=== PATIENT | male | born 1950 | race Two or more races ===

== ENCOUNTER 2022-03-08 00:35 | Emergency (ER) | payer OTHER ==
[~2022-03-08] VITALS: Ht 170.2 cm; Wt 68.0 kg
[2022-03-08 01:58] LABS: Basophils # (auto) 0 10 ^3/uL (0-0.2); Basophils % (auto) 0.3 % (0.0-2.0); Eosinophils # (auto) 0.1 10 ^3/uL (0-0.8); Eosinophils % (auto) 0.7 % (0.0-7.0); Hematocrit 39.1 % (41.0-53.0); Hemoglobin 12.8 g/dL (13.5-17.5); Lymphocytes # (auto) 2.1 10 ^3/uL (0.4-5.4); Lymphocytes % (auto) 18.9 % (10.0-50.0); Mean Corpuscular Hgb Conc. 32.9 g/dL (32.0-36.0); Mean Corpuscular Volume 94.4 fL (80.0-100.0); Monocytes # (auto) 0.8 10 ^3/uL (0-1.3); Monocytes % (auto) 7.5 % (0.0-12.0); Neutrophils # (auto) 8.1 10 ^3/uL (1.6-8.6); Neutrophils % (auto) 72.6 % (37.0-80.0); Red Blood Cells 4.14 10^6/uL (4.5-5.90); Red Cell Distribution Width 14.3 % (11.8-14.3); White Blood Cell 11.1 10^3/uL (4.4-10.8)
[2022-03-08 02:20] LABS: Albumin 3.6 g/dL (3.4-5.0); Calcium 8.7 mg/dL (8.5-10.1); Magnesium 2.3 mg/dL (1.6-2.6); Potassium 4.8 mmol/L (3.5-5.1)
[2022-03-08 02:22] LABS: BUN/Creatinine Ratio 18.3
[2022-03-08 02:24] LABS: Bilirubin, Total 0.3 mg/dL (0.2-1.0); Total Protein 6.9 g/dL (6.4-8.2)
[2022-03-08] MEDS ORDERED: LIDOCAINE VISCOUS 2% 15ML UD PO ONE (02:30)
[2022-03-08] MEDS ORDERED: ONDANSETRON ODT 4 MG TAB PO ONE (02:30)
[2022-03-08] MEDS ORDERED: FAMOTIDINE 20 MG TAB PO ONE (02:30)
[2022-03-08] MEDS ORDERED: ALUM & MAG HYDROX-SIMETH LIQ(MAALOX) 30 ML PO ONE (02:30)
[2022-03-08 06:01] VITALS: BP 134/74
== END 2022-03-08 06:05 | disposition home or self-care (01) ==
LOC: EDBD 00:35 → ER 00:35
DX: R11.2 Nausea with vomiting, unspecified (principal); R10.13 Epigastric pain; E11.9 Type 2 diabetes mellitus without complications; K21.9 Gastro-esophageal reflux disease without esophagitis; I10 Essential (primary) hypertension; Z95.1 Presence of aortocoronary bypass graft; Z85.038 Personal history of other malignant neoplasm of large intestine
CPT/HCPCS: 36415; 71045; 74177; 80053; 83735; 83880; 84484; 85025; 93005; 99285; Q0162

== ENCOUNTER 2023-05-01 08:52 | Emergency (ER) | payer OTHER ==
[~2023-05-01] VITALS: Ht 170.2 cm; Wt 66.3 kg
[2023-05-01 09:45] LABS: Urine Blood Negative /uL (Negative); Urine Clarity Clear (Clear); Urine Protein, UAD TRACE (Negative); Urine Specific Gravity 1.009 (1.001-1.035); Urine Urobilinogen Normal (Negative); Urine WBC 1 /hpf (0 - 3)
[2023-05-01 09:46] LABS: Urine Bacteria NONE SEEN /hpf (None Seen); Urine Hyaline Cast FEW /lpf (0 - 2)
[2023-05-01 09:51] LABS: Urine Color Straw (Yellow)
[2023-05-01 09:55] LABS: Alanine Aminotransferase 22 U/L (7-40); Albumin 4.8 g/dL (3.2-4.8); Alkaline Phosphatase 81 U/L (46-116); Anion Gap 9 (5-15); Aspartate Aminotransferase 24 U/L (13-40); BUN/Creatinine Ratio 11.1 (10.0-20.0); Bilirubin, Total 0.6 mg/dL (0.2-1.0); Blood Urea Nitrogen 14 mg/dL (9-23); Calcium 10.4 mg/dL (8.5-10.1); Carbon Dioxide 28 mmol/L (20-30); Chloride 106 mmol/L (98-107); Glucose 195 mg/dL (74-106); Potassium 3.7 mmol/L (3.5-5.1); Sodium 143 mmol/L (136-145); Total Protein 8.1 g/dL (5.7-8.2)
[2023-05-01 10:03] LABS: INR 1.11 (0.9-1.15); Partial Thromboplastin Time 28.8 SEC (24.5-34.5); Prothrombin Time 11.6 sec (9.3-11.8)
[2023-05-01 10:10] LABS: Basophils # (auto) 0 10 ^3/uL (0-0.2); Basophils % (auto) 0.3 % (0.0-2.0); Eosinophils # (auto) 0.1 10 ^3/uL (0-0.8); Eosinophils % (auto) 0.7 % (0.0-7.0); Hematocrit 47.9 % (41.0-53.0); Hemoglobin 16.1 g/dL (13.5-17.5); Lymphocytes # (auto) 1.5 10 ^3/uL (0.4-5.4); Lymphocytes % (auto) 18.2 % (10.0-50.0); Mean Corpuscular Hemoglobin 29.3 pg (28.0-32.0); Mean Corpuscular Hgb Conc. 33.6 g/dL (32.0-36.0); Mean Corpuscular Volume 87.3 fL (80.0-100.0); Monocytes # (auto) 0.6 10 ^3/uL (0-1.3); Monocytes % (auto) 7.3 % (0.0-12.0); Neutrophils # (auto) 5.9 10 ^3/uL (1.6-8.6); Neutrophils % (auto) 73.5 % (37.0-80.0); Nucleated Red Blood Cells % 0.1 %; Red Blood Cells 5.49 10^6/uL (4.5-5.90); Red Cell Distribution Width 17.7 % (11.8-14.3)
[2023-05-01 10:15] LABS: Magnesium 2.1 mg/dL (1.6-2.6)
[2023-05-01 11:45] VITALS: BP 132/69; PULSE 79; RESP 18; TEMP 98.8; O2SAT 99
== END 2023-05-01 11:47 | disposition home or self-care (01) ==
LOC: EDBD 08:52 → ER 08:52
DX: R10.13 Epigastric pain (principal); K21.9 Gastro-esophageal reflux disease without esophagitis; R11.2 Nausea with vomiting, unspecified; E78.5 Hyperlipidemia, unspecified; E11.9 Type 2 diabetes mellitus without complications; I11.0 Hypertensive heart disease with heart failure; I50.89 Other heart failure; Z98.890 Other specified postprocedural states; Z90.49 Acquired absence of other specified parts of digestive tract; Z88.5 Allergy status to narcotic agent
CPT/HCPCS: 36415; 71045; 80053; 81001; 83735; 83880; 84484; 85379; 85610; 85730; 93005

== ENCOUNTER 2023-08-20 11:09 | Inpatient (IN) | payer OTHER ==
[~2023-08-20] VITALS: Ht 167.6 cm; Wt 68.9 kg
[2023-08-20 13:36] LABS: Basophils # (auto) 0.1 10 ^3/uL (0-0.2); Basophils % (auto) 0.8 % (0.0-2.0); Eosinophils # (auto) 0.1 10 ^3/uL (0-0.8); Eosinophils % (auto) 0.8 % (0.0-7.0); Hematocrit 45.8 % (41.0-53.0); Hemoglobin 14.7 g/dL (13.5-17.5); Lymphocytes # (auto) 1.5 10 ^3/uL (0.4-5.4); Lymphocytes % (auto) 22.5 % (10.0-50.0); Mean Corpuscular Hemoglobin 29.5 pg (28.0-32.0); Mean Corpuscular Hgb Conc. 32.2 g/dL (32.0-36.0); Mean Corpuscular Volume 91.8 fL (80.0-100.0); Monocytes # (auto) 0.6 10 ^3/uL (0-1.3); Monocytes % (auto) 9.6 % (0.0-12.0); Neutrophils # (auto) 4.4 10 ^3/uL (1.6-8.6); Neutrophils % (auto) 66.3 % (37.0-80.0); Red Blood Cells 4.99 10^6/uL (4.5-5.90); Red Cell Distribution Width 14.2 % (11.8-14.3); White Blood Cell 6.7 10^3/uL (4.4-10.8)
[2023-08-20 13:44] LABS: Anion Gap 6 (5-15); Carbon Dioxide 28 mmol/L (20-30); Chloride 108 mmol/L (98-107); Potassium 4.5 mmol/L (3.5-5.1); Sodium 142 mmol/L (136-145)
[2023-08-20 13:45] LABS: Calcium 9.8 mg/dL (8.7-10.4)
[2023-08-20 13:50] LABS: BUN/Creatinine Ratio 16.9 (10.0-20.0); Blood Urea Nitrogen 26 mg/dL (9-23); Glucose 211 mg/dL (74-106)
[2023-08-20] MEDS ORDERED: LOVA40TA72 PO (16:42)
[2023-08-20] MEDS ORDERED: ASPI81CH49 PO (16:42)
[2023-08-20] MEDS ORDERED: SACU1TAB PO (16:42)
[2023-08-20] MEDS ORDERED: METO25TA93 PO (16:42)
[2023-08-20] MEDS ORDERED: ALLO300T2 PO (16:42)
[2023-08-20] MEDS ORDERED: DAPA1TAB4 PO (16:42)
[2023-08-20] MEDS ORDERED: FAMO40TA7 PO (16:42)
[2023-08-20] MEDS ORDERED: MORPHINE SULFATE INJ 2 MG/ml SYRG IV PRN (16:45)
[2023-08-20] MEDS ORDERED: HYDROcodone-ACET 5/325MG TAB PO PRN (16:45)
[2023-08-20] MEDS ORDERED: FUROSEMIDE 100 MG/10ML VIAL IV ONE (16:45)
[2023-08-20] MEDS ORDERED: NITROGLYCERIN 0.4 MG SL TAB SL PRN (16:45)
[2023-08-20] MEDS ORDERED: ACETAMINOPHEN 325 MG TAB PO PRN (16:45)
[2023-08-20] MEDS ORDERED: ONDANSETRON HCL 4 MG/2 ML VIAL IV PRN (16:45)
[2023-08-20] MEDS ORDERED: IPRATROPIUM BROM 0.5 MG/2.5ML INH SOL NEB PRN (16:45)
[2023-08-20] MEDS ORDERED: DOCUSATE SOD 100 MG CAP PO PRN (16:45)
[2023-08-20] MEDS ORDERED: ALBUTEROL SULF 2.5 MG/0.5ML(0.5%) NEB SOLN NEB PRN (16:45)
[2023-08-20] MEDS ORDERED: DEXTROSE (50%) 50ML SYRG IV PRN (16:45)
[2023-08-20 17:53] VITALS: BP 137/81; PULSE 72; RESP 16; TEMP 97.4; O2SAT 98
[2023-08-20 18:52] LABS: Triglycerides 83 mg/dL (< 150)
[2023-08-20 18:53] LABS: LDL Cholesterol 76 mg/dL (< 100)
[2023-08-20 18:54] LABS: Cholesterol 121 mg/dL (< 200); HDL Cholesterol 36 mg/dL (40-59)
[2023-08-20] MEDS: InsuLIN REG 1unit/0.01ml Soln (100units/ml) SC SCH ×2 (20:35→22:00)
[2023-08-20] MEDS: ACCU-CHEK COMFORT CURVE STRIP VI SCH (20:36)
[2023-08-20] MEDS: FUROSEMIDE 40 MG/4 ML VIAL IV SCH (20:36)
[2023-08-20] MEDS ORDERED: ATORVASTATIN 20 MG TAB PO SCH (22:00)
[2023-08-21] MEDS: ACCU-CHEK COMFORT CURVE STRIP VI SCH ×3 (00:10→11:22)
[2023-08-21] MEDS: SACUBITRIL-VALSARTAN 24mg/26mg TAB PO SCH ×2 (00:10→09:22)
[2023-08-21 04:15] VITALS: PULSE 63; RESP 18; O2SAT 98
[2023-08-21 05:14] LABS: Basophils # (auto) 0 10 ^3/uL (0-0.2); Basophils % (auto) 0.6 % (0.0-2.0); Eosinophils # (auto) 0.1 10 ^3/uL (0-0.8); Eosinophils % (auto) 1.7 % (0.0-7.0); Hematocrit 43.4 % (41.0-53.0); Hemoglobin 13.9 g/dL (13.5-17.5); Lymphocytes # (auto) 1.5 10 ^3/uL (0.4-5.4); Lymphocytes % (auto) 23.6 % (10.0-50.0); Mean Corpuscular Hemoglobin 29.4 pg (28.0-32.0); Mean Corpuscular Hgb Conc. 32.1 g/dL (32.0-36.0); Mean Corpuscular Volume 91.5 fL (80.0-100.0); Monocytes # (auto) 0.6 10 ^3/uL (0-1.3); Monocytes % (auto) 9.9 % (0.0-12.0); Neutrophils # (auto) 4.1 10 ^3/uL (1.6-8.6); Neutrophils % (auto) 64.2 % (37.0-80.0); Nucleated Red Blood Cells % 0.1 %; Red Blood Cells 4.74 10^6/uL (4.5-5.90); Red Cell Distribution Width 14.2 % (11.8-14.3); White Blood Cell 6.3 10^3/uL (4.4-10.8)
[2023-08-21 05:36] LABS: Alanine Aminotransferase 19 U/L (7-40); Alkaline Phosphatase 74 U/L (46-116); Anion Gap 11 (5-15); BUN/Creatinine Ratio 13.3 (10.0-20.0); Blood Urea Nitrogen 18 mg/dL (9-23); Calcium 9.3 mg/dL (8.5-10.1); Carbon Dioxide 22 mmol/L (20-30); Chloride 110 mmol/L (98-107); Glucose 122 mg/dL (74-106); Potassium 3.7 mmol/L (3.5-5.1); Sodium 143 mmol/L (136-145)
[2023-08-21 05:37] LABS: Albumin 3.9 g/dL (3.2-4.8); Aspartate Aminotransferase 20 U/L (13-40); Bilirubin, Total 0.7 mg/dL (0.2-1.0); Total Protein 6.4 g/dL (5.7-8.2)
[2023-08-21 06:22] VITALS: O2SAT 99
[2023-08-21 06:23] VITALS: O2SAT 99
[2023-08-21] MEDS: FUROSEMIDE 40 MG/4 ML VIAL IV SCH (06:35)
[2023-08-21] MEDS: InsuLIN REG 1unit/0.01ml Soln (100units/ml) SC SCH ×2 (06:39→12:18)
[2023-08-21 07:18] LABS: Urine Bacteria NONE SEEN /hpf (None Seen); Urine Blood Negative /uL (Negative); Urine Clarity Clear (Clear); Urine Color Yellow (Yellow); Urine Hyaline Cast FEW /lpf (0 - 2); Urine Protein, UAD 2+ (Negative); Urine Specific Gravity 1.019 (1.001-1.035); Urine Urobilinogen Normal (Negative); Urine WBC 1 /hpf (0 - 3)
[2023-08-21 09:31] LABS: COVID19 ANTIGEN SOFIA FIA NEGATIVE (NEGATIVE)
[2023-08-21] MEDS ORDERED: FAMOTIDINE 20 MG TAB PO SCH (10:00)
[2023-08-21] MEDS ORDERED: METOPROLOL SUCCINATE XL 50 MG TAB PO SCH (10:00)
[2023-08-21] MEDS ORDERED: DAPAGLIFLOZIN 5 MG TAB PO SCH (10:00)
[2023-08-21] MEDS ORDERED: ENOXAPARIN SOD 40 MG/0.4 ML SYRINGE SC SCH (10:00)
[2023-08-21] MEDS ORDERED: FLUT50SP NAS (11:00)
[2023-08-21] MEDS ORDERED: FURO40TA4 PO (11:00)
[2023-08-21] MEDS ORDERED: GLIP5TAB12 PO (11:00)
[2023-08-21 11:30] VITALS: PULSE 55; RESP 16; O2SAT 94
[2023-08-21] MEDS ORDERED: OMEP20TA PO (11:55)
[2023-08-21] MEDS ORDERED: NITR0.4S29 SL (12:00)
[2023-08-21 13:00] VITALS: BP 140/90; PULSE 76; RESP 16; TEMP 98.3; O2SAT 97
[2023-08-22] MEDS ORDERED: ALLOPURINOL 300 MG TAB PO SCH (10:00)
== END 2023-08-21 16:00 | disposition home or self-care (01) | DRG 280 ==
LOC: ER 11:09 → TELE 16:37 → TELE-WESTW 08-21 11:15
PROVIDERS: ADMIT Nurse Practitioner Family; ATTEND Nurse Practitioner Acute Care
DX: I13.0 Hypertensive heart and chronic kidney disease with heart failure and stage 1 through stage 4 chronic kidney disease, or unspecified chronic kidney disease (principal); I21.A1 Myocardial infarction type 2; I50.21 Acute systolic (congestive) heart failure; N17.9 Acute kidney failure, unspecified; K21.9 Gastro-esophageal reflux disease without esophagitis; N18.32 Chronic kidney disease, stage 3b; E11.22 Type 2 diabetes mellitus with diabetic chronic kidney disease; E78.5 Hyperlipidemia, unspecified; I25.10 Atherosclerotic heart disease of native coronary artery without angina pectoris; Z95.5 Presence of coronary angioplasty implant and graft; Z95.810 Presence of automatic (implantable) cardiac defibrillator; Z85.01 Personal history of malignant neoplasm of esophagus; Z20.822 Contact with and (suspected) exposure to COVID-19
CPT/HCPCS: 36415; 71046; 78582; 80048; 80053; 80061; 81001; 82962; 83036; 83880; 84443; 84484; 85025; 85379; 87426; 93005; 93970; G0378; J1815

== ENCOUNTER 2023-11-29 04:35 | Inpatient (IN) | payer OTHER ==
[~2023-11-29] VITALS: Ht 175.3 cm; Wt 66.5 kg
[~2023-11-29 04:35] MED LIST: ALLO300T2 PO; ASPI81CH49 PO; DAPA1TAB4 PO; EMPA1TAB PO; FAMO40TA7 PO; FURO40TA4 PO; LOVA40TA72 PO; METO25TA93 PO; NITR0.4S29 SL; OMEP20TA PO; SACU1TAB PO
[2023-11-29 05:20] VITALS: PULSE 93; RESP 22; O2SAT 94
[2023-11-29] MEDS: FUROSEMIDE 40 MG/4 ML VIAL IV ONE (06:07)
[2023-11-29 06:19] LABS: Basophils # (auto) 0 10 ^3/uL (0-0.2); Basophils % (auto) 0.3 % (0.0-2.0); Eosinophils # (auto) 0 10 ^3/uL (0-0.8); Hemoglobin 13.1 g/dL (13.5-17.5); Lymphocytes # (auto) 0.7 10 ^3/uL (0.4-5.4); Monocytes # (auto) 0.4 10 ^3/uL (0-1.3); White Blood Cell 7.9 10^3/uL (4.4-10.8)
[2023-11-29 06:23] LABS: Eosinophils % (auto) 0.1 % (0.0-7.0); Lymphocytes % (auto) 9.2 % (10.0-50.0); Mean Corpuscular Volume 84.6 fL (80.0-100.0); Monocytes % (auto) 4.9 % (0.0-12.0); Neutrophils # (auto) 6.7 10 ^3/uL (1.6-8.6); Neutrophils % (auto) 85.5 % (37.0-80.0); Red Blood Cells 4.85 10^6/uL (4.5-5.90)
[2023-11-29 08:00] VITALS: PULSE 80; RESP 20; O2SAT 97
[2023-11-29 08:23] LABS: Urine Bacteria None Seen /hpf (None Seen)
[2023-11-29 08:35] LABS: Urine Blood Negative /uL (Negative); Urine Clarity Clear (Clear); Urine Color Light-Yellow (Yellow); Urine Hyaline Cast FEW /lpf (0 - 2); Urine Protein, UAD Negative (Negative); Urine Specific Gravity 1.009 (1.001-1.035); Urine Urobilinogen Normal (Negative); Urine WBC <1 /hpf (0 - 3); Urine pH 7.5 (5.0-9.0)
[2023-11-29] MEDS: EMPAGLIFLOZIN 10 MG TAB PO SCH (12:19)
[2023-11-29] MEDS: METOPROLOL SUCCINATE XL 50 MG TAB PO SCH (12:19)
[2023-11-29] MEDS: SACUBITRIL-VALSARTAN 24mg/26mg TAB PO SCH (12:20)
[2023-11-29] MEDS: PANTOPRAZOLE 80 MG in SODIUM CHL 0.9% 100 ML IV ONE (14:05)
[2023-11-29] MEDS: PANTOPRAZOLE 40mg/50ML NS AE 50 ML IV SCH ×2 (15:07→21:43)
[2023-11-29 16:33] VITALS: PULSE 74; RESP 18; O2SAT 99
[2023-11-29 17:00] VITALS: BP 120/71; PULSE 73; RESP 16; TEMP 97.9; O2SAT 99
[2023-11-29] MEDS: FUROSEMIDE 40 MG/4 ML VIAL IV SCH (17:49)
[2023-11-29 20:00] VITALS: RESP 18
[2023-11-29] MEDS: ATORVASTATIN 20 MG TAB PO SCH (20:59)
[2023-11-29 21:00] VITALS: BP 129/77; PULSE 103; RESP 18; TEMP 98.9; O2SAT 99
[2023-11-29 22:17] LABS: Hemoglobin 12.2 g/dL (13.5-17.5)
[2023-11-30] VITALS (12 sets, daily range): BP systolic 90–112; BP diastolic 51–64; PULSE 60–105; RESP 17–22; TEMP 97.9–98.9; O2SAT 95–100
[2023-11-30] MEDS: MELATONIN 5 MG TAB PO ONE ×2 (00:30→22:03)
[2023-11-30] MEDS: ALBUTEROL SULF 2.5 MG/0.5ML(0.5%) NEB SOLN NEB PRN (04:32)
[2023-11-30] MEDS: FUROSEMIDE 40 MG/4 ML VIAL IV SCH (05:23)
[2023-11-30 07:17] LABS: Basophils # (auto) 0 10 ^3/uL (0-0.2); Basophils % (auto) 0.4 % (0.0-2.0); Eosinophils # (auto) 0.1 10 ^3/uL (0-0.8); Eosinophils % (auto) 0.7 % (0.0-7.0); Hematocrit 39.6 % (41.0-53.0); Hemoglobin 12.4 g/dL (13.5-17.5); Lymphocytes # (auto) 0.9 10 ^3/uL (0.4-5.4); Lymphocytes % (auto) 9.1 % (10.0-50.0); Mean Corpuscular Hgb Conc. 31.4 g/dL (32.0-36.0); Mean Corpuscular Volume 85.9 fL (80.0-100.0); Monocytes # (auto) 0.7 10 ^3/uL (0-1.3); Monocytes % (auto) 7.2 % (0.0-12.0); Neutrophils # (auto) 8.4 10 ^3/uL (1.6-8.6); Neutrophils % (auto) 82.6 % (37.0-80.0); White Blood Cell 10.1 10^3/uL (4.4-10.8)
[2023-11-30 07:26] LABS: Red Cell Distribution Width 20.1 % (11.8-14.3)
[2023-11-30 07:30] LABS: Alanine Aminotransferase < 9 U/L (7-40); Albumin 3.7 g/dL (3.2-4.8); Alkaline Phosphatase 65 U/L (46-116); Anion Gap 9 (5-15); Aspartate Aminotransferase 20 U/L (13-40); BUN/Creatinine Ratio 14.8 (10.0-20.0); Bilirubin, Total 2.2 mg/dL (0.2-1.0); Blood Urea Nitrogen 21 mg/dL (9-23); Calcium 9.3 mg/dL (8.5-10.1); Carbon Dioxide 26 mmol/L (20-30); Chloride 107 mmol/L (98-107); Glucose 95 mg/dL (74-106); Potassium 3.9 mmol/L (3.5-5.1); Sodium 142 mmol/L (136-145); Total Protein 6.4 g/dL (5.7-8.2)
[2023-11-30] MEDS ORDERED: ASPirin 81 mg TAB PO SCH (10:00)
[2023-11-30] MEDS ORDERED: DAPAGLIFLOZIN PROPANEDIOL 10 MG PO SCH (10:00)
[2023-11-30] MEDS: levoFLOXacin 500MG 100 ML IV SCH (10:02)
[2023-11-30] MEDS: ALLOPURINOL 100 MG TAB PO SCH (10:02)
[2023-11-30] MEDS: FAMOTIDINE 20 MG TAB PO SCH ×2 (10:04→22:04)
[2023-11-30 10:57] LABS: Hematocrit 39.5 % (41.0-53.0); Hemoglobin 12.5 g/dL (13.5-17.5)
[2023-11-30] MEDS ORDERED: GLIM-38 PO (11:04)
[2023-11-30] MEDS: AMPICILLIN & SULBACTAM SODIUM 3 GM in SODIUM CHL 0.9% 100 ML IV SCH (17:20)
[2023-11-30] MEDS: Ensure Enlive Strawberry 8oz Bottle PO SCH (18:22)
[2023-11-30 22:04] LABS: Hematocrit 40.4 % (41.0-53.0); Hemoglobin 12.9 g/dL (13.5-17.5)
[2023-12-01 05:43] VITALS: BP 123/71; PULSE 63; RESP 18; TEMP 98; O2SAT 97
[2023-12-01 06:32] LABS: Basophils # (auto) 0 10 ^3/uL (0-0.2); Basophils % (auto) 0.4 % (0.0-2.0); Eosinophils # (auto) 0.1 10 ^3/uL (0-0.8); Eosinophils % (auto) 1.4 % (0.0-7.0); Hematocrit 38.3 % (41.0-53.0); Hemoglobin 12.4 g/dL (13.5-17.5); Lymphocytes # (auto) 0.9 10 ^3/uL (0.4-5.4); Lymphocytes % (auto) 12.1 % (10.0-50.0); Mean Corpuscular Hemoglobin 27.2 pg (28.0-32.0); Mean Corpuscular Hgb Conc. 32.4 g/dL (32.0-36.0); Mean Corpuscular Volume 84.1 fL (80.0-100.0); Monocytes # (auto) 0.9 10 ^3/uL (0-1.3); Monocytes % (auto) 11.3 % (0.0-12.0); Neutrophils # (auto) 5.7 10 ^3/uL (1.6-8.6); Neutrophils % (auto) 74.8 % (37.0-80.0); Nucleated Red Blood Cells % 0.1 %; Red Blood Cells 4.55 10^6/uL (4.5-5.90); White Blood Cell 7.6 10^3/uL (4.4-10.8)
[2023-12-01 06:38] LABS: Red Cell Distribution Width 20.7 % (11.8-14.3)
[2023-12-01 08:00] VITALS: PULSE 66; RESP 18
[2023-12-01 09:00] VITALS: BP 104/61; PULSE 65; RESP 17; TEMP 97.9; O2SAT 97
[2023-12-01] MEDS: PANTOPRAZOLE 40 MG TAB PO SCH (09:29)
[2023-12-01] MEDS: SPIRONOLACTONE 25 MG TAB PO SCH (09:29)
[2023-12-01 09:52] LABS: Chloride 106 mmol/L (98-107); Potassium 3.6 mmol/L (3.5-5.1); Sodium 141 mmol/L (136-145)
[2023-12-01 09:53] LABS: Anion Gap 9 (5-15); Carbon Dioxide 26 mmol/L (20-30)
[2023-12-01 09:58] LABS: BUN/Creatinine Ratio 18.3 (10.0-20.0); Blood Urea Nitrogen 24 mg/dL (9-23); Glucose 122 mg/dL (74-106)
[2023-12-01] MEDS ORDERED: FAMOTIDINE 20 MG TAB PO SCH (10:00)
[2023-12-01 12:06] VITALS: O2SAT 96
[2023-12-01] MEDS ORDERED: AUG875T PO (13:50)
== END 2023-12-01 16:02 | disposition home or self-care (01) | DRG 177 ==
LOC: ER 04:35 → TELE 12:50 → TELE-WESTW 16:26
PROVIDERS: ADMIT Nurse Practitioner Family; ATTEND Nurse Practitioner Acute Care
DX: J69.0 Pneumonitis due to inhalation of food and vomit (principal); I50.43 Acute on chronic combined systolic (congestive) and diastolic (congestive) heart failure; J96.01 Acute respiratory failure with hypoxia; K21.01 Gastro-esophageal reflux disease with esophagitis, with bleeding; K92.2 Gastrointestinal hemorrhage, unspecified; I13.0 Hypertensive heart and chronic kidney disease with heart failure and stage 1 through stage 4 chronic kidney disease, or unspecified chronic kidney disease; J15.9 Unspecified bacterial pneumonia; I25.10 Atherosclerotic heart disease of native coronary artery without angina pectoris; E78.5 Hyperlipidemia, unspecified; D63.8 Anemia in other chronic diseases classified elsewhere; E03.9 Hypothyroidism, unspecified; E11.22 Type 2 diabetes mellitus with diabetic chronic kidney disease; I25.5 Ischemic cardiomyopathy; I27.20 Pulmonary hypertension, unspecified; N18.31 Chronic kidney disease, stage 3a; Z79.84 Long term (current) use of oral hypoglycemic drugs; Z82.49 Family history of ischemic heart disease and other diseases of the circulatory system; Z85.01 Personal history of malignant neoplasm of esophagus; Z85.028 Personal history of other malignant neoplasm of stomach; Z87.891 Personal history of nicotine dependence; Z90.3 Acquired absence of stomach [part of]; Z95.1 Presence of aortocoronary bypass graft; Z95.810 Presence of automatic (implantable) cardiac defibrillator; Z88.6 Allergy status to analgesic agent
CPT/HCPCS: 36415; 71045; 74176; 80048; 80053; 81001; 83735; 83880; 84484; 85014; 85018; 85025; 87081; 93005; 94640; 96365; 96375; 99291; C9113; G0378; J1956

== ENCOUNTER 2023-12-18 21:36 | Emergency (ER) | payer OTHER ==
[~2023-12-18] VITALS: Ht 170.2 cm; Wt 63.6 kg
[~2023-12-18 21:36] MED LIST changes: +AUG875T PO; -DAPA1TAB4 PO; -FAMO40TA7 PO; +GLIM-38 PO; -SACU1TAB PO
[2023-12-18 22:55] LABS: Basophils # (auto) 0 10 ^3/uL (0-0.2); Basophils % (auto) 0.9 % (0.0-2.0); Eosinophils # (auto) 0 10 ^3/uL (0-0.8); Eosinophils % (auto) 0.1 % (0.0-7.0); Hematocrit 39.8 % (41.0-53.0); Hemoglobin 12.8 g/dL (13.5-17.5); Lymphocytes # (auto) 0.9 10 ^3/uL (0.4-5.4); Lymphocytes % (auto) 18.4 % (10.0-50.0); Mean Corpuscular Hemoglobin 27.4 pg (28.0-32.0); Mean Corpuscular Volume 85.5 fL (80.0-100.0); Monocytes # (auto) 0.8 10 ^3/uL (0-1.3); Monocytes % (auto) 17.2 % (0.0-12.0); Neutrophils % (auto) 63.4 % (37.0-80.0); Red Blood Cells 4.66 10^6/uL (4.5-5.90); White Blood Cell 4.7 10^3/uL (4.4-10.8)
[2023-12-18 23:00] LABS: Chloride 103 mmol/L (98-107); Potassium 4.5 mmol/L (3.5-5.1); Sodium 139 mmol/L (136-145)
[2023-12-18 23:01] LABS: Anion Gap 7 (5-15); Calcium 10.4 mg/dL (8.7-10.4); Carbon Dioxide 29 mmol/L (20-30)
[2023-12-18 23:02] LABS: Red Cell Distribution Width 20.5 % (11.8-14.3)
[2023-12-18 23:06] LABS: Blood Urea Nitrogen 32 mg/dL (9-23); Glucose 132 mg/dL (74-106)
[2023-12-18 23:14] LABS: INR 1.34 (0.9-1.15); Partial Thromboplastin Time 27.1 SEC (24.5-34.5); Prothrombin Time 13.9 sec (9.3-11.8)
[2023-12-19] MEDS ORDERED: AZITTAB PO (02:14)
[2023-12-19] MEDS ORDERED: ALBU108A14 IN (02:14)
[2023-12-19 04:06] VITALS: BP 125/70; PULSE 84; RESP 18; TEMP 98; O2SAT 96
[2023-12-19] MEDS: DexAMETHasone SOD PHOS 10MG/1ML VIAL INJ IV ONE (04:06)
[2023-12-19] MEDS: FUROSEMIDE 40 MG/4 ML VIAL IV ONE (04:06)
== END 2023-12-19 04:06 | disposition home or self-care (01) ==
LOC: EDBD 21:36 → ER 21:36
DX: I50.9 Heart failure, unspecified (principal); I11.0 Hypertensive heart disease with heart failure; J40 Bronchitis, not specified as acute or chronic; E11.9 Type 2 diabetes mellitus without complications; K21.9 Gastro-esophageal reflux disease without esophagitis; E78.5 Hyperlipidemia, unspecified; Z85.9 Personal history of malignant neoplasm, unspecified; Z98.890 Other specified postprocedural states; Z87.891 Personal history of nicotine dependence
CPT/HCPCS: 36415; 71045; 80048; 83880; 84484; 85025; 85610; 85730; 93005; 96374; 96375; 99285; J1100; J1940

== ENCOUNTER 2024-09-19 19:12 | Inpatient (IN) | payer OTHER ==
[~2024-09-19] VITALS: Ht 170.2 cm; Wt 64.9 kg
[~2024-09-19 19:12] MED LIST changes: +ALBU108A14 IN; +AZITTAB PO
--- NOTE | 2024-09-19 19:25 | ED.PDOC ---
Thais. trauma (HPI) HPI Comments 74-year-old male who came to ER via EMS to fall injury. Accidentally tripped over his dog and landed badly on his right hip. Patient unable to walk or stand up after the fall. Denies any head trauma or loss of consciousness. Noted shortening of the right leg with external rotation. Chief Complaint: Fall Injury Time Seen by MD: 19:24 Primary Care Provider: LORETTA Reviewed notes: Door Core Assembler Notes Allergies: Coded Allergies: Morphine (Verified Allergy, Unknown, 03/08/22) Home Meds Active Scripts Albuterol Sulfate (Proair Digihaler) 108 Mcg/Act Aer, 1-2 PUFF IN Q6HP PRN, #1 AER Prov:AYO HIDALGO MD 12/19/23 Azithromycin (Zithromax Z-Evangelist) 250 Mg Tab, 250 MG PO DAILY for 5 Days, #6 TAB 2 tabs (500 mg) p.o. on day 1, then 1 tab (250 mg) daily x 4 days Prov:AYO HIDALGO MD 12/19/23 Amoxicillin & Pot Clavulanate (AUGMENTIN TABLET) 875 Mg Tb, 875 MG PO BID for 7 Days, #14 TAB Prov:EMANI MARTIN FIRE PREVENTION INSPECTOR 12/01/23 Empagliflozin (Jardiance) 10 Mg Tab, 10 MG PO DAILY for 30 Days, #30 TAB 2 Refills Prov:ANNMIHIR RESIDENT 11/16/23 Reported Medications Glimepiride (Glimepiride) 1 Mg Tab, 1 MG PO for 30 Days, MG 11/30/23 Nitroglycerin (NTROSTAT SUBLINGUAL) 0.4 Mg Sl, 0.4 MG SL PRN, TAB *MAY REPEAT EVERY 5 MINUTES X 3 TOTAL IF NO RELIEF, INITIATE ANALGESIC THERAPY. NOTIFY PHYSICIAN *Do not crush. 08/21/23 Omeprazole (Gnp Omeprazole) 20 Mg Tab, 1 TAB PO DAILY, #90 TAB 1 Refill 08/21/23 Furosemide (Furosemide) 40 Mg Tab, 1 TAB PO DAILY 08/21/23 Allopurinol (Allopurinol) 300 Mg Tab, 300 MG PO MWF, TAB 08/20/23 Aspirin (Aspirin) 81 Mg Chw, 81 MG PO DAILY, TAB.CHEW 08/20/23 Lovastatin (Lovastatin) 40 Mg Tab, 1 TAB PO 08/20/23 Metoprolol Succinate (Metoprolol Succinate Er) 25 Mg Tab, 1 TAB PO DAILY 08/20/23 Information Source: Patient Mode of Arrival: EMS Severity: Moderate Timing: Hours Duration: Since onset Location: (R) Hip Mechanism: Fall Past Medical History PAST MEDICAL HISTORY: Cancer, CHF, DM, GERD, High Lipids, HTN, Thyroid Surgical History: Appendectomy, CABG, Hernia Repair, Pacemaker, PTCA Family History Family History: Family hx of Cancer Social History Smoker: Quit Greater Than 1 Year Alcohol: Occasionally Drugs: Denies Drug Use Lives In: Home Constitutional: denies: chills, diaphoresis, fatigue, fever, malaise, sweats, weakness, others EENTM: denies: blurred vision, double vision, ear bleeding, ear discharge, ear drainage, ear pain, ear ringing, eye pain, eye redness, hearing loss, mouth pain, mouth swelling, nasal discharge, nose bleeding, nose congestion, nose pain, photophobia, tearing, throat pain, throat swelling, voice changes, others Respiratory: denies: cough, hemoptysis, orthopnea, SOB at rest, shortness of breath, SOB with excertion, stridor, wheezing, others Cardiovascular: denies: chest pain, dizzy spells, diaphoresis, Dyspnea on exertion, edema, irregular heart beat, left arm pain, lightheadedness, palpitations, PND, syncope, others Gastrointestinal: denies: abdomen distended, abdominal pain, blood streaked bowels, constipated, diarrhea, dysphagia, difficulty swallowing, hematemesis, melena, nausea, poor appetite, poor fluid intake, rectal bleeding, rectal pain, vomiting, others Genitourinary: denies: burning, dysuria, flank pain, frequency, hematuria, incontinence, penile discharge, penile sore, pain, testicle pain, testicle swelling, urgency, others Neurological: denies: dizziness, fainting, headache, left sided numbness, left sided weakness, numbness, paresthesia, pre-existing deficit, right sided numbness, right sided weakness, seizure, speech problems, tingling, tremors, weakness, others Musculoskeletal: reports: joint pain (right hip); denies: back pain, gout, joint swelling, muscle pain, muscle stiffness, neck pain, others Integumetry: denies: bruises, change in color, change in hair/nails, dryness, laceration, lesions, lumps, rash, wounds, others Allergic/Immunocompromised: denies: Difficulty Healing, Frequent Infections, Hives, Itching, others Hematologic/Lymphatic: denies: anemia, blood clots, easy bleeding, easy bruising, swollen glands, others Endocrine: denies: excessive hunger, excessive sweating, excessive thirst, excessive urination, flushing, intolerance to cold, intolerance to heat, unexplained weight gain, unexplained weight loss, others Psychiatric: denies: anxiety, bipolar disorder, depression, hopeless, panic disorder, schizophrenia, sleepless, suicidal, others Physical Exam General Appearance: No Apparent Distress, Normal HEENT: Normal ENT Inspection, Pharynx Normal, TMs Normal Neck: Full Range of Motion, Non-Tender, Normal, Normal Inspection Respiratory: Chest Non-Tender, Lungs Clear, No Accessory Muscle Use, No Respiratory Distress, Normal Breath Sounds Cardiovascular: No Edema, No JVD, No Murmur, No Gallop, Normal Peripheral Pulses, Regular Rate/Rhythm Breast Exam: Deferred Gastrointestinal: No Organomegaly, Non Tender, No Pulsatile Mass, Normal Bowel Sounds, Soft Genitalia: Deferred Pelvic: Deferred Rectal: Deferred Extremities: No calf tenderness, Normal capillary refill, Non-tender, No pedal edema, Other (right leg shortened and externally rotated) Musculoskeletal : Apperance: Normal Neurologic: Alert, global account executive II-XII nml as Tested, No Motor Deficits, Normal Affect, Normal Mood, No Sensory Deficits Cerebellar Function: Normal Reflexes: Normal Skin: Dry, Normal Color, Warm Lymphatic: No Adenopathy Was a procedure done? Was a procedure done?: No Differential Diagnosis Multiple Trauma: Fractures, Abrasions, Contusion, Other (Dislocation, sprain, strain) X-Ray, Labs, Meds, VS Vital Signs Date Time Temp Pulse Resp B/P (MAP) Pulse Ox O2 Delivery O2 Flow Rate FiO2 09/19/24 19:18 97.8 83 18 194/74 (114) 98 Time of 1ST Reevaluation: 19:20 Reevaluation 1ST: Unchanged Patient Education/Counseling: Diagnosis, Treatment Family Education/Counseling: No Family Present Departure 1 Departure Time of Disposition: 20:41 (Patient with a right hip fracture. We will admit patient for further workup and expert consultation.) Impression: Primary Impression: Fracture, intertrochanteric, right femur Qualified Codes: S72.144A - Nondisplaced intertrochanteric fracture of right femur, initial encounter for closed fracture Disposition: ADMITTED INPATIENT Admit to: Med Surg Condition: Serious Critical Care Note Critical Care Time?: No Stability Stability form required: No Heart Score Heart Score: Heart Score Response (Comments) Value History N/A 0 EKG N/A 0 Age N/A 0 Risk Factors N/A 0 Troponin N/A 0 Total 0 I personally scribed for DESIRAE STANFORD MD ([email or web address]) on 09/19/24 at 19:25. E lectronically submitted by Vincent Godoy ([facility]). DESIRAE STANFORD MD Sep 19, 2024 19:25
[2024-09-19 19:37] VITALS: PULSE 78; RESP 18; O2SAT 97
--- NOTE | 2024-09-19 20:31 | DVH ---
EXAM: XY R HIP COMPLETE XRAY CLINICAL HISTORY: fall, right hip COMPARISON: None TECHNIQUE: XY R HIP COMPLETE XRAY Findings/Impression: 2 views of the right hip with frontal view of the pelvis. Nondisplaced right intertrochanteric fracture. There is no evidence of dislocation, blastic, or lytic lesions. No radiopaque foreign bodies. Moderate atherosclerosis.
[2024-09-19] MEDS: ONDANSETRON HCL 4 MG/2 ML VIAL IV ONE (20:56)
[2024-09-19] MEDS: fentaNYL CITRATE 100 MCG/2 ML VL IV ONE (21:01)
[2024-09-19 21:12] LABS: Chloride 102 mmol/L (98-107); Potassium 3.9 mmol/L (3.5-5.1); Sodium 139 mmol/L (136-145)
[2024-09-19 21:13] LABS: Anion Gap 11 (5-15); Carbon Dioxide 26 mmol/L (20-31)
[2024-09-19 21:19] LABS: BUN/Creatinine Ratio 16.9 (10.0-20.0)
[2024-09-19 21:22] LABS: INR 1.07 (0.9-1.15); Partial Thromboplastin Time 26.9 SEC (24.5-34.5); Prothrombin Time 11.3 sec (9.3-11.8)
[2024-09-19 21:24] LABS: Basophils # (auto) 0 10 ^3/uL (0-0.2); Basophils % (auto) 0.5 % (0.0-2.0); Eosinophils # (auto) 0 10 ^3/uL (0-0.8); Eosinophils % (auto) 0.3 % (0.0-7.0); Hematocrit 46.3 % (41.0-53.0); Hemoglobin 15.6 g/dL (13.5-17.5); Lymphocytes # (auto) 1.1 10 ^3/uL (0.4-5.4); Lymphocytes % (auto) 12.5 % (10.0-50.0); Mean Corpuscular Hemoglobin 30.8 pg (28.0-32.0); Mean Corpuscular Hgb Conc. 33.6 g/dL (32.0-36.0); Mean Corpuscular Volume 91.8 fL (80.0-100.0); Monocytes # (auto) 0.7 10 ^3/uL (0-1.3); Monocytes % (auto) 7.6 % (0.0-12.0); Neutrophils % (auto) 79.1 % (37.0-80.0); Nucleated Red Blood Cells % 0.1 %; Platelet Count (auto) 176 10^3/uL (140-450); Red Blood Cells 5.05 10^6/uL (4.5-5.90); Red Cell Distribution Width 13.9 % (11.8-14.3); White Blood Cell 8.8 10^3/uL (4.4-10.8)
[2024-09-19 21:28] LABS: Blood Urea Nitrogen 26 mg/dL (9-23); Calcium 10.7 mg/dL (8.7-10.4); Glucose 182 mg/dL (74-106)
[2024-09-19] MEDS ORDERED: NITROGLYCERIN 0.4 MG SL TAB SL PRN (22:45)
[2024-09-19] MEDS ORDERED: hydrALAZINE HCL 20 MG/ML VL IV PRN (22:45)
[2024-09-19] MEDS ORDERED: MORPHINE SULFATE INJ 2 MG/ml SYRG IV PRN (22:45)
[2024-09-19] MEDS ORDERED: DEXTROSE (50%) 50ML SYRG IV PRN (22:45)
[2024-09-19] MEDS ORDERED: HYDROcodone-ACET 5/325MG TAB PO PRN (22:45)
[2024-09-19 23:02] LABS: Magnesium 2.5 mg/dL (1.6-2.6)
[2024-09-19 23:04] LABS: Blood Alcohol < 3.0 mg/dL (<10)
--- NOTE | 2024-09-19 23:12 | DVH ---
CHEST RADIOGRAPH Indication: pre op eval Technique: Single frontal view of the chest was obtained COMPARISON: XY CHEST PORTABLE on DOS: 12/18/23, XY CHEST XRAY 1 VIEW on DOS: 11/30/23, XY CHEST PORTABL E on DOS: 11/29/23, XY CHEST PORTABLE on DOS: 11/14/23, XY CHEST PORTABLE on DOS: 05/01/23 FINDINGS: Lines and Tubes: AICD again noted overlying right chest wall Lungs: Clear Pleura: No effusion. No pneumothorax. Cardiomediastinal contours: Mild cardiomegaly Bones: Unremarkable IMPRESSION: No acute disease. Mild cardiomegaly. No appreciable change compared to the prior chest x-ray from December 2023.
--- NOTE | 2024-09-19 23:24 | DVHHPRES ---
History of Present Illness Resident Creating Document: ANDREW RUSSELL RESIDENT History of Present Illness ZAKIA PINEDA JR Gwen 74-year-old male with a PMH of CAD, mi, CHF, HTN, HLD, type 2 DM, gout, hypothyroidism, CKD presented to the ED with the chief complaints of mechanical fall in evening on the day of admission. Patient reported he accidentally tripped over his dog, fell and landed on his right hip, unable to stand up after the fall, unable to walk and in severe pain. Patient denies head trauma, LOC. No other acute complaints for now. PMH: Severe CAD with a triple bypass CABG (1985), s/p multiple PTCAs x 11 AUDI, ischemic cardiomyopathy,CHF, HTN, HLD, T2 DM, gout, stomach cancer status post resection, and esophageal cancer s/p resection, hypothyroidism, CKD PSH: AICD ( placed September 04, 2023), CABG, appendectomy, hernia repair, partial gastrectomy, partial esophagectomy Family history: cancer runs in families Social history: Lives with family. Former smoker quit 1 year ago, occasional alcohol abuse but denies other drug abuse Allergies: No known allergies Home medications: Omeprazole 20, Lasix 40, glimepiride 1 mg, Jardiance 10 mg, metoprolol succinate 25 mg, spironolactone 25 mg, aspirin 81, lovastatin 40 mg, Ativan and nitroglycerin as needed Review of Systems Review of Systems Patient seen and examined at the bedside. Patient is moaning in pain in right hip Constitutional: No: Fever, Chills, Sweats, Weakness, Malaise, Other Eyes: No: Pain, Vision change, Conjunctivae inflammation, Eyelid inflammation, Other, Redness ENT: No: Ear pain, Ear discharge, Nose pain, Nose discharge, Nose congestion, Mouth pain, Mouth swelling, Throat pain, Throat swelling, Other Respiratory: No: Cough, Dry, Shortness of breath, SOB with excertion, Wheezing, Hemoptysis, Pleuritic Pain, Sputum, Wheezing, Other Cardiovascular: No: Chest Pain, Palpitations, Orthopnea, Paroxysmal Noc. Dyspnea, Edema, Lt Headedness, Other Gastrointestinal: No: Nausea, Vomiting, Abdominal Pain, Diarrhea, Constipation, Melena, Hematochezia, Other Genitourinary: No Dysuria, No Frequency, No Incontinence, No Hematuria, No Retention, No Other Musculoskeletal: leg pain (Right hip) Skin: No: Rash, Lesions, Jaundice, Bruising, Other Neurological: No: Weakness, Numbness, Incoordination, Change in speech, Confusion, Seizures, Other Allergies: Coded Allergies: Morphine (Verified Allergy, Unknown, 03/08/22) Medications Current Medications Medications Dose Ordered Sig/Jessica Route Start Time Stop Time Status Last Admin Dose Admin Acetaminophen/ Hydrocodone Bitart 1 tab Q4HP PRN PO 09/19/24 22:45 Ondansetron HCl 4 mg Q4HP PRN IV 09/19/24 22:45 Enoxaparin Sodium 40 mg DAILY SC 09/20/24 10:00 Nitroglycerin 0.4 mg Q5MINP PRN SL 09/19/24 22:45 Morphine Sulfate 2 mg Q30M PRN IV 09/19/24 22:45 Pantoprazole Sodium 40 mg DAILY IV 09/19/24 22:45 Hydralazine HCl 10 mg Q6HP PRN IV 09/19/24 22:45 Diagnostic Test (Pha) 1 strip ACHS 09/20/24 07:00 Insulin Human Regular ACHS SC 09/20/24 07:00 Dextrose 50 ml UD PRN IV 09/19/24 22:45 Metoprolol Succinate 25 mg DAILY PO 09/19/24 23:00 Exam Vital Signs Vital Signs Date Time Temp Pulse Resp B/P (MAP) Pulse Ox O2 Delivery O2 Flow Rate FiO2 09/19/24 21:01 148/76 09/19/24 19:37 78 18 97 Room Air* 0 21 09/19/24 19:37 97.9 97.9 Exam Pt is lying on bed General Appearance: Alert, Oriented X3, Cooperative, mild distress HEENT: Atraumatic, Mucous membranes moist/pink Respiratory: Clear to auscultation, Normal air movement Cardiovascular: Regular rate, Normal S1, Normal S2 Abdominal: Active bowel sounds, Soft, no distention, no tenderness Extremities: No edema, Normal pulses, No tenderness/swelling Skin: No Significant rash, except past surgical scars Neuro: Normal speech, sensorimotor deficits none Psych/Mental Status: Mental status NL, Mood NL Nurse was there as sharperone during examination Labs/Xrays Labs Test 09/19/24 20:47 Range/Units White Blood Count 8.8 4.4-10.8 10^3/uL Red Blood Count 5.05 4.5-5.90 10^6/uL Hemoglobin 15.6 13.5-17.5 g/dL Hematocrit 46.3 41.0-53.0 % Mean Corpuscular Volume 91.8 80.0-100.0 fL Mean Corpuscular Hemoglobin 30.8 28.0-32.0 pg Mean Corpuscular Hemoglobin Concent 33.6 32.0-36.0 g/dL Red Cell Distribution Width 13.9 11.8-14.3 % Platelet Count 176 140-450 10^3/uL Mean Platelet Volume 10.6 6.9-10.8 fL Neutrophils (%) (Auto) 79.1 37.0-80.0 % Lymphocytes (%) (Auto) 12.5 10.0-50.0 % Monocytes (%) (Auto) 7.6 0.0-12.0 % Eosinophils (%) (Auto) 0.3 0.0-7.0 % Basophils (%) (Auto) 0.5 0.0-2.0 % Neutrophils # (Auto) 7.0 1.6-8.6 10 ^3/uL Lymphocytes # (Auto) 1.1 0.4-5.4 10 ^3/uL Monocytes # (Auto) 0.7 0-1.3 10 ^3/uL Eosinophils # (Auto) 0 0-0.8 10 ^3/uL Basophils # (Auto) 0 0-0.2 10 ^3/uL Nucleated Red Blood Cells 0.1 % Prothrombin Time 11.3 9.3-11.8 sec Prothrombin Time INR 1.07 0.9-1.15 Activated Partial Thromboplast Time 26.9 24.5-34.5 SEC Sodium Level 139 136-145 mmol/L Potassium Level 3.9 3.5-5.1 mmol/L Chloride Level 102 98-107 mmol/L Carbon Dioxide Level 26 20-31 mmol/L Anion Gap 11 5-15 Blood Urea Nitrogen 26 H 9-23 mg/dL Creatinine 1.54 H 0.700-1.30 mg/dL Glomerular Filtration Rate Calc 47 >90 mL/min BUN/Creatinine Ratio 16.9 10.0-20.0 Serum Glucose 182 H 74-106 mg/dL Calcium Level 10.7 H 8.7-10.4 mg/dL Assessment/Plan Assessment/Plan # Mechanical fall without LOC # Right intertrochanteric femur fracure, non displaced, closed - hip x-ray showed nondisplaced right intertrochanteric fracture - consulted orthopedic surgeon - pain management as needed - cardiology consult for preoperative evaluation # HTN Urgency - continuously monitored - currently giving hydralazine p.r.n. - we will resume home meds # Uncontrolled type 2 DM - Accu-Cheks and ISS # chronic systolic vs diastolic CHF - resume home meds - cardiology for preoperative evaluation - continuing metoprolol - hold Lasix # Riccardo Likely VMN on Ckd - monitor for now # H/O CAD , NC S/P PTCA with AUDI - home meds PUD PPX: Protonix VTE PPX: Lovenox Diet: NPO for now Goals of care discussed with the patient for more than 29 minutes: Full code status Case discussed with Dr. Gutiérrez, patient and nurse Plan discussed with: Patient, Spouse My Orders Orders - ANDREW RUSSELL RESIDENT Procedure Category Date Status Time Admit ADMIT 09/19/24 Transmitted 22:32 Allergies RORY 09/19/24 In Process 22:32 Code Status CODE 09/19/24 Transmitted 22:32 Hydrocodone-Acet PHA 09/19/24 In Process 5/325mg Tab ([place] 22:45 Ondansetron Hcl PHA 09/19/24 In Process (Zofran) 22:45 Enoxaparin Sodium PHA 09/20/24 In Process (Lovenox) 10:00 Npo (Nothing By DIET 09/20/24 Transmitted Mouth) Diet Breakfast Echo 2d Mode Cardiac US 09/19/24 Logged DOP 22:32 Condition: Stable RORY 09/19/24 In Process 22:32 Nitroglycerin PHA 09/19/24 In Process Sublingual (Ntrostat 22:45 Morphine Sulfate PHA 09/19/24 In Process Injection 22:45 Oxygen By Nasal RT 09/19/24 Transmitted Cannula 22:32 Stat Ekg For Chest RORY 09/19/24 In Process Pain 22:32 Notify Of Changes RORY 09/19/24 In Process From Base 22:32 Photo Specialist For RORY 09/19/24 In Process 24 Hours 22:32 Emergency Dysrhythmia RORY 09/19/24 In Process Protocol 22:32 Rhythm Strips Once RORY 09/19/24 In Process Every Shift 22:32 Chest Xray 1 View XY 09/19/24 Logged 22:37 Rapid Influenza A&B LAB 09/19/24 Logged 22:37 Covid19 Antigen [place] LAB 09/19/24 Logged B-Type Natriuretic LAB 09/19/24 In Process Peptide 22:37 Blood Alcohol LAB 09/19/24 In Process 22:37 Drug Screen LAB 09/19/24 Logged 22:37 Free T4 (Free LAB 09/19/24 In Process Thyroxine) 22:37 Magnesium LAB 09/19/24 In Process 22:37 Thyroid Stimulating LAB 09/19/24 In Process Hormone 22:37 Urinalysis LAB 09/19/24 Logged 22:37 Pantoprazole PHA 09/19/24 In Process (Protonix) 22:45 Hydralazine Injection PHA 09/19/24 In Process (Apresoline Inject 22:45 Glucose Blood PHA 09/20/24 In Process (Accu-Chek Comfort 07:00 Insulin R (Human) PHA 09/20/24 In Process (Insulin R) 07:00 Dextrose 50% Syringe PHA 09/19/24 In Process 22:45 * Cardiology Consult CONS 09/19/24 Transmitted 22:43 Metoprolol Xl PHA 09/19/24 In Process Succinate (Toprol Xl) 23:00 Date of Service: Sep 19, 2024 Billing Provider: FRIEDA GUTIÉRREZ MD Common Visit Codes: [id number] INP/OBS CARE (HIGH) ANDREW RUSSELL RESIDENT Sep 19, 2024 23:24 FRIEDA GUTIÉRREZ MD Sep 22, 2024 16:21
[2024-09-19] MEDS: PANTOPRAZOLE 40 MG/10 ML VIAL INJ IV SCH (23:33)
[2024-09-19] MEDS: HYDROcodone-ACET 5/325MG TAB PO ONE (23:34)
[2024-09-19] MEDS: METOPROLOL SUCCINATE XL 50 MG TAB PO SCH (23:34)
[2024-09-19] MEDS: TEMAZEPAM 15 MG CAP PO PRN (23:50)
[2024-09-20] VITALS (9 sets, daily range): BP systolic 113–162; BP diastolic 54–81; PULSE 61–109; RESP 15–18; TEMP 97.5–98.3; O2SAT 95–100
[2024-09-20 00:46] LABS: Urine Bacteria None Seen /hpf (None Seen)
[2024-09-20] MEDS: IOHEXOL 350 MG/ML 100ML IJ ONE (00:48)
[2024-09-20 00:52] LABS: Urine Blood Negative /uL (Negative); Urine Clarity Clear (Clear); Urine Color Yellow (Yellow); Urine Protein, UAD TRACE (Negative); Urine Specific Gravity 1.026 (1.001-1.035); Urine Squamous Epithelial Cell None Seen /hpf (<5); Urine Urobilinogen Normal (Negative); Urine WBC 1 /HPF (0-3); Urine pH 7.5 (5.0-9.0)
--- NOTE | 2024-09-20 01:13 | DVH ---
CTA Chest with intravenous contrast INDICATION: R/O PE COMPARISON: None TECHNIQUE: Multidetector spiral CTA of the chest was performed of the chest with intravenous contrast . PULMONARY ANGIOGRAPHY PROTOCOL was utilized using a bolus-tracking technique centered on the main p ulmonary artery. Axial, coronal and sagittal multiplanar and MIP reformats were performed. Radiation Dose : 1. Chest: CTDI volume is mGy. Dose-length product is mGy*cm The dose indicators for CT are the volume Computed Tomography (CT) Dose Index (CTDIvol) and the Dose Length Product (DLP), and are measured in units of mGy and mGy-cm, respectively. These indicators are not patient dose, but values generated from the CT scanner acquisition factors. The report includes radiation exposure data for exposures received during this examination. Findings: Pulmonary artery: No definite evidence of pulmonary embolism. Mildly enlarged pulmonary artery consi stent with pulmonary arterial hypertension. Lower neck: Unremarkable. Lungs: No focal consolidation, pleural effusion or pneumothorax. Heart/Vascular Structures: Mild cardiomegaly. Coronary artery calcifications. No pericardial effusion . Mild atherosclerotic changes in thoracic aorta and visualized upper abdominal aorta without aneurys mal dilatation. Lymph Nodes: No lymphadenopapthy. Musculoskeletal: No acute osseous abnormality. Soft tissues: Normal. Visualized upper abdomen: Unremarkable. IMPRESSION: No definite evidence of pulmonary embolism. No acute thoracic finding.
[2024-09-20 01:31] LABS: Rapid Influenza A Negative (Negative); Rapid Influenza B Negative (Negative)
[2024-09-20 01:32] LABS: COVID19 ANTIGEN SOFIA FIA NEGATIVE (NEGATIVE)
[2024-09-20 01:55] LABS: Amphetamine Screen, Urine Neg (NEGATIVE); Barbiturate Scree,Urine Neg (NEGATIVE); Benzodiazephine Screen, Urine Neg (NEGATIVE); Cannabinoid Screen, Urine Neg (NEGATIVE); Cocaine Screen, Urine Neg (NEGATIVE); Opiate Scree,Urine Neg (NEGATIVE); Phencyclidine Screen, Urine Neg (NEGATIVE)
[2024-09-20] MEDS: HYDROmorphone HCL 2 MG/ML VL/or syr IV ONE (03:51)
[2024-09-20] MEDS: ACCU-CHEK COMFORT CURVE STRIP VI SCH (06:03)
[2024-09-20] MEDS: InsuLIN REG 1unit/0.01ml Soln (100units/ml) SC SCH (06:03)
[2024-09-20] MEDS: ENOXAPARIN SOD 40 MG/0.4 ML SYRINGE SC SCH (08:47)
[2024-09-20] MEDS: HYDROmorphone HCL 2 MG/ML VL/or syr IV PRN (09:53)
[2024-09-20] MEDS: ONDANSETRON HCL 4 MG/2 ML VIAL IV PRN (10:00)
--- NOTE | 2024-09-20 12:00 | DVHINCON2 ---
Date of service: Sep 20, 2024 Reason for Consultation Right hip pain History of Present Illness Mr. Eng is a 74-year-old male who was brought to the hospital after experiencing a mechanical fall where he tripped over his dog causing him to fall and land on his right hip and has been unable to bear weight on that side since due to the pain. Patient denied any head trauma, loss of consciousness, chest pain, shortness of breath, nausea, vomiting, fever, or chills. Patient reports that he was able to ambulate well without assistance before this most recent inc ident. Past Medical History CAD, mi, CHF, hypertension, hyperlipidemia, type 2 diabetes, gout, hypothyro idism, CKD, history of stomach and esophageal cancer Past Surgical History CABG, AICD, appendectomy, hernia repair, partial gastrectomy, partial esophagectomy Family History: Diabetes mellitus G8 MOTHER G8 FATHER FH: cancer G8 MOTHER FH: heart failure G8 FATHER Family History History of cancer Social History Patient admits to quitting smoking approximately one year ago, occasional alcohol abuse but denied any other illicit substance abuse Allergies: Coded Allergies: Morphine (Verified Allergy, Unknown, 03/08/22) Home Meds Active Scripts Albuterol Sulfate (Proair Digihaler) 108 Mcg/Act Aer, 1-2 PUFF IN Q6HP PRN, #1 AER Prov:AYO HIDALGO MD 12/19/23 Empagliflozin (Jardiance) 10 Mg Tab, 10 MG PO DAILY for 30 Days, #30 TAB 2 Refills Prov:MIHIR ANN RESIDENT 11/16/23 Reported Medications Glimepiride (Glimepiride) 1 Mg Tab, 1 MG PO for 30 Days, MG 11/30/23 Nitroglycerin (NTROSTAT SUBLINGUAL) 0.4 Mg Sl, 0.4 MG SL PRN, TAB *MAY REPEAT EVERY 5 MINUTES X 3 TOTAL IF NO RELIEF, INITIATE ANALGESIC THERAPY. NOTIFY PHYSICIAN *Do not crush. 08/21/23 Omeprazole (Gnp Omeprazole) 20 Mg Tab, 1 TAB PO DAILY, #90 TAB 1 Refill 08/21/23 Furosemide (Furosemide) 40 Mg Tab, 1 TAB PO DAILY 08/21/23 Allopurinol (Allopurinol) 300 Mg Tab, 300 MG PO MWF, TAB 08/20/23 Aspirin (Aspirin) 81 Mg Chw, 81 MG PO DAILY, TAB.CHEW 08/20/23 Lovastatin (Lovastatin) 40 Mg Tab, 1 TAB PO 08/20/23 Metoprolol Succinate (Metoprolol Succinate Er) 25 Mg Tab, 1 TAB PO DAILY 08/20/23 Current Medications Current Medications Medications (Trade) Dose Ordered Sig/Jessica Route PRN Reason Start Time Stop Time Status Last Admin Acetaminophen/ Hydrocodone Bitart ([place] 5/325MG Tab) 1 tab Q4HP PRN PO MODERATE PAIN (4-6 PAIN SCALE) 09/19/24 22:45 09/20/24 09:37 DC Ondansetron HCl (Zofran) 4 mg Q4HP PRN IV NAUSEA / VOMITING 09/19/24 22:45 Enoxaparin Sodium (Lovenox) 40 mg DAILY SC 09/20/24 10:00 09/20/24 08:47 Nitroglycerin (Ntrostat Sublingual) 0.4 mg Q5MINP PRN SL FOR CHEST PAIN 09/19/24 22:45 Morphine Sulfate 2 mg Q30M PRN IV FOR CHEST PAIN 09/19/24 22:45 Pantoprazole Sodium (Protonix) 40 mg DAILY IV 09/19/24 22:45 09/20/24 08:45 Hydralazine HCl (Apresoline Injection) 10 mg Q6HP PRN IV SBP>160 09/19/24 22:45 Diagnostic Test (Pha) (Accu-Chek Comfort Curve T) 1 strip ACHS 09/20/24 07:00 09/20/24 11:27 Insulin Human Regular (InsuLIN R) ACHS SC 09/20/24 07:00 09/20/24 06:03 Dextrose 50 ml UD PRN IV Blood Sugar LESS THAN 60 09/19/24 22:45 Metoprolol Succinate (Toprol Xl) 25 mg DAILY PO 09/19/24 23:00 09/19/24 23:34 Temazepam (Restoril) 15 mg HSPRN PRN PO FOR INSOMNIA 09/19/24 23:45 09/19/24 23:50 Hydromorphone HCl (Dilaudid Injection) 2 mg Q4HPRN PRN IV SEVERE PAIN (7-10 PAIN SCALE) 09/20/24 09:45 09/20/24 09:53 Review of Systems 10 point review of systems negative except as per HPI Vital Signs Vital Signs Date Time Temp Pulse Resp B/P (MAP) Pulse Ox O2 Delivery O2 Flow Rate FiO2 09/20/24 09:53 64 16 126/70 09/20/24 08:00 100 Nasal Cannula* 2 28 09/20/24 07:52 97.9 97.9 Physical Exam General appearance: A&O x4 in no acute distress HEENT: Normal ENT inspection, pharynx normal, TMs normal Neck: Full range of motion, nontender, normal inspection Respiratory: Chest nontender, without accessory muscle use, no respiratory distress Cardiovascular: No edema, no JVD, normal peripheral pulses Gastrointestinal: Soft, nontender, no organomegaly. Musculoskeletal: Right hip range of motion grossly limited with pain on movement, no calf tenderness, normal capillary refill, no pedal edema, neurovascularly intact. Skin: Dry, normal color, warm Lymphatic: No adenopathy Labs/Diagnostic Data Labs Test 09/20/24 10:58 09/20/24 08:31 09/20/24 00:55 09/20/24 00:00 Range/Units POC Glucose 164 H 70-106 mg/dl Influenza Type A Antigen Negative Negative Influenza Type B Antigen Negative Negative SARS-CoV-2 Antigen (Rapid) Negative NEGATIVE Urine Color Yellow Yellow Urine Clarity Clear Clear Urine pH 7.5 5.0-9.0 Urine Specific [place] 1.026 1.001-1.035 Urine Protein Trace H Negative Urine Ketones 1+ H Negative Urine Blood Negative Negative /uL Urine Nitrite Negative Negative Urine Bilirubin Negative Negative Urine Urobilinogen Normal Negative mg/dL Urine Leukocyte Esterase Negative Negative /uL Urine RBC 3 0 - 3 /hpf Urine Microscopic WBC 1 0-3 /HPF Urine Squamous Epithelial Cells None seen <5 /hpf Urine Bacteria None seen None Seen /hpf Urine Glucose 4+ H Normal mg/dL Urine Opiates Screen Neg NEGATIVE Urine Fentanyl Screen Pos NEGATIVE Urine Barbiturates Screen Neg NEGATIVE Urine Phencyclidine Screen Neg NEGATIVE Urine Amphetamines Screen Neg NEGATIVE Urine Benzodiazepines Screen Neg NEGATIVE Urine Cocaine Screen Neg NEGATIVE Urine Cannabinoids Screen Neg NEGATIVE Test 09/19/24 20:47 Range/Units White Blood Count 8.8 4.4-10.8 10^3/uL Red Blood Count 5.05 4.5-5.90 10^6/uL Hemoglobin 15.6 13.5-17.5 g/dL Hematocrit 46.3 41.0-53.0 % Mean Corpuscular Volume 91.8 80.0-100.0 fL Mean Corpuscular Hemoglobin 30.8 28.0-32.0 pg Mean Corpuscular Hemoglobin Concent 33.6 32.0-36.0 g/dL Red Cell Distribution Width 13.9 11.8-14.3 % Platelet Count 176 140-450 10^3/uL Mean Platelet Volume 10.6 6.9-10.8 fL Neutrophils (%) (Auto) 79.1 37.0-80.0 % Lymphocytes (%) (Auto) 12.5 10.0-50.0 % Monocytes (%) (Auto) 7.6 0.0-12.0 % Eosinophils (%) (Auto) 0.3 0.0-7.0 % Basophils (%) (Auto) 0.5 0.0-2.0 % Neutrophils # (Auto) 7.0 1.6-8.6 10 ^3/uL Lymphocytes # (Auto) 1.1 0.4-5.4 10 ^3/uL Monocytes # (Auto) 0.7 0-1.3 10 ^3/uL Eosinophils # (Auto) 0 0-0.8 10 ^3/uL Basophils # (Auto) 0 0-0.2 10 ^3/uL Nucleated Red Blood Cells 0.1 % Prothrombin Time 11.3 9.3-11.8 sec Prothrombin Time INR 1.07 0.9-1.15 Activated Partial Thromboplast Time 26.9 24.5-34.5 SEC Sodium Level 139 136-145 mmol/L Potassium Level 3.9 3.5-5.1 mmol/L Chloride Level 102 98-107 mmol/L Carbon Dioxide Level 26 20-31 mmol/L Anion Gap 11 5-15 Blood Urea Nitrogen 26 H 9-23 mg/dL Creatinine 1.54 H 0.700-1.30 mg/dL Glomerular Filtration Rate Calc 47 >90 mL/min BUN/Creatinine Ratio 16.9 10.0-20.0 Serum Glucose 182 H 74-106 mg/dL Calcium Level 10.7 H 8.7-10.4 mg/dL Magnesium Level 2.5 1.6-2.6 mg/dL B-Type Natriuretic Peptide 445.52 0-100 pg/mL Thyroid Stimulating Hormone (TSH) 11.77 H 0.55-4.78 uIU/mL Free Thyroxine (T4) Calculated 1.04 0.89-1.76 ng/dL Plasma/Serum Blood Alcohol < 3.0 <10 mg/dL Right hip x-ray reviewed and demonstrated: Nondisplaced right intertrochanteric fracture. There is no evidence of dislocation, blastic, or lytic lesions. No radiopaque foreign bodies. Moderate atherosclerosis. Assessment Right intertrochanteric hip fracture Plan/Recommendation I had a lengthy discussion with the patient and his regarding nonoperative versus operative management and after discussing his case and reviewing his imaging studies with Dr. Latif we have recommended an open versus closed IM nail fixation of his right intertrochanteric hip fracture. I discussed all of the risks and complications involved with surgery including but not limited to bleeding, infection, nerve injury, chronic pain, nonunion, malunion, need for further surgery, blood clots, DVT, PE, cardiac and pulmonary complications, and even . He understood and agreed to proceed with the surgery. We will plan to undergo surgery tomorrow morning if patient remains medically stable and is cleared from a cardiology standpoint. Thank you for allowing us to participate in the care of your patient. Plan discussed with: Patient, Spouse NOLANWILLIAMS FERNANDES [place] Sep 20, 2024 12:00
--- NOTE | 2024-09-20 12:44 | DVHPN2 ---
Reviewed: Care Plan, H&P, Labs, Medications, Previous Orders, Radiology Changes from previous H/P or p: No Changes Eyes: No Pain, No Vision change, No Conjunctivae inflammation, No Eyelid inflammation, No Other, No Redness ENT: No Ear pain, No Ear discharge, No Nose pain, No Nose discharge, No Nose congestion, No Mouth pain, No Mouth swelling, No Throat pain, No Throat swelling, No Other Cardiovascular: No Chest Pain, No Palpitations, No Orthopnea, No Paroxysmal Noc. Dyspnea, No Edema, No Lt Headedness, No Other Respiratory: No Cough, No Dry, No Shortness of breath, No SOB with excertion, No Wheezing, No Hemoptysis, No Pleuritic Pain, No Sputum, No Other Gastrointestinal: No Nausea, No Vomiting, No Abdominal Pain, No Diarrhea, No Constipation, No Melena, No Hematochezia, No Other Genitourinary: No Dysuria, No Frequency, No Incontinence, No Hematuria, No Retention, No Other Musculoskeletal: leg pain (Right hip) Skin: No Rash, No Lesions, No Jaundice, No Bruising, No Other Objective Vitals Vital Signs Date Time Temp Pulse Resp B/P (MAP) Pulse Ox O2 Delivery O2 Flow Rate FiO2 09/20/24 09:53 64 16 126/70 09/20/24 08:00 100 Nasal Cannula* 2 28 09/20/24 07:52 97.9 97.9 Intake/Output Intake and Output 09/20/24 07:00 Output Total 800 ml Balance -800 ml Output Urine Total 800 ml Medications Current Medications Medications Dose Ordered Sig/Jessica Route Start Time Stop Time Status Last Admin Dose Admin Ondansetron HCl 4 mg Q4HP PRN IV 09/19/24 22:45 Enoxaparin Sodium 40 mg DAILY SC 09/20/24 10:00 09/20/24 08:47 40 MG Nitroglycerin 0.4 mg Q5MINP PRN SL 09/19/24 22:45 Morphine Sulfate 2 mg Q30M PRN IV 09/19/24 22:45 Pantoprazole Sodium 40 mg DAILY IV 09/19/24 22:45 09/20/24 08:45 40 MG Hydralazine HCl 10 mg Q6HP PRN IV 09/19/24 22:45 Diagnostic Test (Pha) 1 strip ACHS 09/20/24 07:00 09/20/24 11:27 1 STRIP Insulin Human Regular ACHS SC 09/20/24 07:00 09/20/24 06:03 3 UNITS Dextrose 50 ml UD PRN IV 09/19/24 22:45 Metoprolol Succinate 25 mg DAILY PO 09/19/24 23:00 09/19/24 23:34 25 MG Temazepam 15 mg HSPRN PRN PO 09/19/24 23:45 09/19/24 23:50 15 MG Hydromorphone HCl 2 mg Q4HPRN PRN IV 09/20/24 09:45 09/20/24 09:53 2 MG Laboratory Results Laboratory Tests 09/19/24 20:47 Chemistry Test 09/19/24 20:47 Calcium Level 10.7 mg/dL (8.7-10.4) H Magnesium Level 2.5 mg/dL (1.6-2.6) Coagulation Test 09/19/24 20:47 Prothrombin Time 11.3 sec (9.3-11.8) Prothrombin Time INR 1.07 (0.9-1.15) Activated Partial Thromboplast Time 26.9 SEC (24.5-34.5) Cardiac Markers Test 09/19/24 20:47 B-Type Natriuretic Peptide 445.52 pg/mL (0-100) HgA1c, TSH Test 09/19/24 20:47 Thyroid Stimulating Hormone (TSH) 11.77 uIU/mL (0.55-4.78) H Urinalysis Test 09/20/24 00:00 Urine Color Yellow (Yellow) Urine Clarity Clear (Clear) Urine pH 7.5 (5.0-9.0) Urine Specific [place] 1.026 (1.001-1.035) Urine Protein Trace (Negative) H Urine Ketones 1+ (Negative) H Urine Blood Negative /uL (Negative) Urine Nitrite Negative (Negative) Urine Bilirubin Negative (Negative) Urine Urobilinogen Normal mg/dL (Negative) Urine Leukocyte Esterase Negative /uL (Negative) Urine RBC 3 /hpf (0 - 3) Urine Microscopic WBC 1 /HPF (0-3) Urine Squamous Epithelial Cells None seen /hpf (<5) Urine Bacteria None seen /hpf (None Seen) Urine Glucose 4+ mg/dL (Normal) H Labs and/or images reviewed: Labs reviewed by me, Image(s) reviewed by me Assessment/Plan Assessment/Plan Acute right intertrochanteric fracture femur: Ortho planning for surgery after Cardiac clearance which has been requested Mechanical fall History of coronary artery disease and NC status post CABG multiple stents Acute on chronic congestive heart failure Hypertension Hypercholesterolemia Uncontrolled diabetes: Insulin sliding scale Hypothyroidism Chronic kidney disease History of stomach cancer status post resection History of esophageal cancer status post resection History of AICD 09/04/2023 PE ruled out Flu test negative COVID test negative Condition guarded Time spent 65 minutes Advanced care planning time 20 minutes Patient is full code Plan discussed with: Patient My Orders Orders - KATY RAMIREZ MD Procedure Category Date Status Time Hydromorphone PHA 09/20/24 In Process Injection (Dilaudid 09:45 * Cardiology Consult CONS 09/20/24 Transmitted 12:35 Troponin-I Hs LAB 09/20/24 Verified 12:37 Troponin-I Hs LAB 09/20/24 Verified 13:37 Troponin-I Hs LAB 09/20/24 Verified 15:37 Date of Service: Sep 20, 2024 Billing Provider: KATY RAMIREZ MD Common Visit Codes: [id number] CARE 30-74 MIN KATY RAMIREZ MD Sep 20, 2024 12:44
--- NOTE | 2024-09-20 13:03 | DVHINCON2 ---
LOLA MENDEZ [facility] 09/20/24 1303: Date Seen: Sep 20, 2024 Referring Physician MD Naresh Reason for Consultation Preoperative cardiac evaluation History of Present Illness This 74-year-old male presents in the ED with a chief complaint of mechanical fall. The patient states tripped over his dog causing right hip fracture. Air Surveillance Operator is consulted for preprocedural cardiac evaluation. The patient states that he was recently seen by his Air Surveillance Operator Dr Angeles three weeks ago for a routine genetic testing. The patient currently denies chest pain, shortness of breath, or dyspnea on exertion. The patient with past medical history of CAD s/p CABG, CHF with EF 10%, hyperlipidemia, diabetes type 2, hypothyroidism, CKD, and gout. Past Medical History As stated in HPI Past Surgical History CABG Family History: Diabetes mellitus G8 MOTHER G8 FATHER FH: cancer G8 MOTHER FH: heart failure G8 FATHER Family History Reviewed, non-contributory to the management of this case. Social History The patient lives at home, denies smoking, alcohol or illicit drugs abuse. Allergies: Coded Allergies: Morphine (Verified Allergy, Unknown, 03/08/22) Home Meds Active Scripts Albuterol Sulfate (Proair Digihaler) 108 Mcg/Act Aer, 1-2 PUFF IN Q6HP PRN, #1 AER Prov:AYO HIDALGO MD 12/19/23 Empagliflozin (Jardiance) 10 Mg Tab, 10 MG PO DAILY for 30 Days, #30 TAB 2 Refills Prov:MIHIR ANN RESIDENT 11/16/23 Reported Medications Glimepiride (Glimepiride) 1 Mg Tab, 1 MG PO for 30 Days, MG 11/30/23 Nitroglycerin (NTROSTAT SUBLINGUAL) 0.4 Mg Sl, 0.4 MG SL PRN, TAB *MAY REPEAT EVERY 5 MINUTES X 3 TOTAL IF NO RELIEF, INITIATE ANALGESIC THERAPY. NOTIFY PHYSICIAN *Do not crush. 08/21/23 Omeprazole (Gnp Omeprazole) 20 Mg Tab, 1 TAB PO DAILY, #90 TAB 1 Refill 08/21/23 Furosemide (Furosemide) 40 Mg Tab, 1 TAB PO DAILY 08/21/23 Allopurinol (Allopurinol) 300 Mg Tab, 300 MG PO MWF, TAB 08/20/23 Aspirin (Aspirin) 81 Mg Chw, 81 MG PO DAILY, TAB.CHEW 08/20/23 Lovastatin (Lovastatin) 40 Mg Tab, 1 TAB PO 08/20/23 Metoprolol Succinate (Metoprolol Succinate Er) 25 Mg Tab, 1 TAB PO DAILY 08/20/23 Current Medications Current Medications Medications (Trade) Dose Ordered Sig/Jessica Route PRN Reason Start Time Stop Time Status Last Admin Acetaminophen/ Hydrocodone Bitart ([place] 5/325MG Tab) 1 tab Q4HP PRN PO MODERATE PAIN (4-6 PAIN SCALE) 09/19/24 22:45 09/20/24 09:37 DC Ondansetron HCl (Zofran) 4 mg Q4HP PRN IV NAUSEA / VOMITING 09/19/24 22:45 Enoxaparin Sodium (Lovenox) 40 mg DAILY SC 09/20/24 10:00 09/20/24 08:47 Nitroglycerin (Ntrostat Sublingual) 0.4 mg Q5MINP PRN SL FOR CHEST PAIN 09/19/24 22:45 Morphine Sulfate 2 mg Q30M PRN IV FOR CHEST PAIN 09/19/24 22:45 Pantoprazole Sodium (Protonix) 40 mg DAILY IV 09/19/24 22:45 09/20/24 08:45 Hydralazine HCl (Apresoline Injection) 10 mg Q6HP PRN IV SBP>160 09/19/24 22:45 Diagnostic Test (Pha) (Accu-Chek Comfort Curve T) 1 strip ACHS 09/20/24 07:00 09/20/24 11:27 Insulin Human Regular (InsuLIN R) ACHS SC 09/20/24 07:00 09/20/24 06:03 Dextrose 50 ml UD PRN IV Blood Sugar LESS THAN 60 09/19/24 22:45 Metoprolol Succinate (Toprol Xl) 25 mg DAILY PO 09/19/24 23:00 09/19/24 23:34 Temazepam (Restoril) 15 mg HSPRN PRN PO FOR INSOMNIA 09/19/24 23:45 09/19/24 23:50 Hydromorphone HCl (Dilaudid Injection) 2 mg Q4HPRN PRN IV SEVERE PAIN (7-10 PAIN SCALE) 09/20/24 09:45 09/20/24 09:53 Review of Systems Constitutional: No symptom reported Ears, Nose, & Throat: No symptom reported Eyes: No symptom reported Neurological: No symptoms reported Pulmonary/Respiratory: No symptom reported Cardiovascular: No symptom reported Gastrointestinal: No symptom reported Genitourinary: No symptom reported Musculoskeletal: Right hip pain s/p fall Skin: No symptom reported Psychiatric: No symptom reported Endocrine: No symptom reported Hemotologic/Lymphatic: No symptom reported Vital Signs Vital Signs Date Time Temp Pulse Resp B/P (MAP) Pulse Ox O2 Delivery O2 Flow Rate FiO2 09/20/24 09:53 64 16 126/70 09/20/24 08:00 100 Nasal Cannula* 2 28 09/20/24 07:52 97.9 97.9 Physical Exam INITIAL VITAL SIGNS: Reviewed by me GENERAL: Alert and interactive. No acute distress. HEAD: Head is normocephalic and atraumatic. EYES: EOMI, PERRL. No scleral icterus. No conjunctival injection. ENT: Moist mucous membranes. NECK: Supple, No masses, Full range of motion. RESPIRATORY: No tachypnea. Clear breath sounds bilaterally. No wheezing, rales, rhonchi. CV: Regular rate and rhythm. No murmurs, rubs, or gallops. GI/: Active bowel sounds, soft, nondistended, nontender. No guarding. No rebound. No masses. No CVA tenderness. INTEGUMENTARY: Warm and dry. No obvious rashes. Musculoskeletal: Right hip tenderness, fracture NEUROLOGIC: Alert and oriented. Face is symmetric. Speech is normal. Moves all extremities equally. Labs/Diagnostic Data Labs Test 09/20/24 10:58 09/20/24 08:31 09/20/24 00:55 09/20/24 00:00 Range/Units POC Glucose 164 H 70-106 mg/dl Influenza Type A Antigen Negative Negative Influenza Type B Antigen Negative Negative SARS-CoV-2 Antigen (Rapid) Negative NEGATIVE Urine Color Yellow Yellow Urine Clarity Clear Clear Urine pH 7.5 5.0-9.0 Urine Specific [place] 1.026 1.001-1.035 Urine Protein Trace H Negative Urine Ketones 1+ H Negative Urine Blood Negative Negative /uL Urine Nitrite Negative Negative Urine Bilirubin Negative Negative Urine Urobilinogen Normal Negative mg/dL Urine Leukocyte Esterase Negative Negative /uL Urine RBC 3 0 - 3 /hpf Urine Microscopic WBC 1 0-3 /HPF Urine Squamous Epithelial Cells None seen <5 /hpf Urine Bacteria None seen None Seen /hpf Urine Glucose 4+ H Normal mg/dL Urine Opiates Screen Neg NEGATIVE Urine Fentanyl Screen Pos NEGATIVE Urine Barbiturates Screen Neg NEGATIVE Urine Phencyclidine Screen Neg NEGATIVE Urine Amphetamines Screen Neg NEGATIVE Urine Benzodiazepines Screen Neg NEGATIVE Urine Cocaine Screen Neg NEGATIVE Urine Cannabinoids Screen Neg NEGATIVE Test 09/19/24 20:47 Range/Units White Blood Count 8.8 4.4-10.8 10^3/uL Red Blood Count 5.05 4.5-5.90 10^6/uL Hemoglobin 15.6 13.5-17.5 g/dL Hematocrit 46.3 41.0-53.0 % Mean Corpuscular Volume 91.8 80.0-100.0 fL Mean Corpuscular Hemoglobin 30.8 28.0-32.0 pg Mean Corpuscular Hemoglobin Concent 33.6 32.0-36.0 g/dL Red Cell Distribution Width 13.9 11.8-14.3 % Platelet Count 176 140-450 10^3/uL Mean Platelet Volume 10.6 6.9-10.8 fL Neutrophils (%) (Auto) 79.1 37.0-80.0 % Lymphocytes (%) (Auto) 12.5 10.0-50.0 % Monocytes (%) (Auto) 7.6 0.0-12.0 % Eosinophils (%) (Auto) 0.3 0.0-7.0 % Basophils (%) (Auto) 0.5 0.0-2.0 % Neutrophils # (Auto) 7.0 1.6-8.6 10 ^3/uL Lymphocytes # (Auto) 1.1 0.4-5.4 10 ^3/uL Monocytes # (Auto) 0.7 0-1.3 10 ^3/uL Eosinophils # (Auto) 0 0-0.8 10 ^3/uL Basophils # (Auto) 0 0-0.2 10 ^3/uL Nucleated Red Blood Cells 0.1 % Prothrombin Time 11.3 9.3-11.8 sec Prothrombin Time INR 1.07 0.9-1.15 Activated Partial Thromboplast Time 26.9 24.5-34.5 SEC Sodium Level 139 136-145 mmol/L Potassium Level 3.9 3.5-5.1 mmol/L Chloride Level 102 98-107 mmol/L Carbon Dioxide Level 26 20-31 mmol/L Anion Gap 11 5-15 Blood Urea Nitrogen 26 H 9-23 mg/dL Creatinine 1.54 H 0.700-1.30 mg/dL Glomerular Filtration Rate Calc 47 >90 mL/min BUN/Creatinine Ratio 16.9 10.0-20.0 Serum Glucose 182 H 74-106 mg/dL Calcium Level 10.7 H 8.7-10.4 mg/dL Magnesium Level 2.5 1.6-2.6 mg/dL B-Type Natriuretic Peptide 445.52 0-100 pg/mL Thyroid Stimulating Hormone (TSH) 11.77 H 0.55-4.78 uIU/mL Free Thyroxine (T4) Calculated 1.04 0.89-1.76 ng/dL Plasma/Serum Blood Alcohol < 3.0 <10 mg/dL PROCEDURE(s): CXR1 - CHEST XRAY 1 VIEW REASON: pre op eval ORDER NUMBER(s): [id number], ACCESSION NUMBER(s): [id number] CHEST RADIOGRAPH Indication: pre op eval Technique: Single frontal view of the chest was obtained COMPARISON: XY CHEST PORTABLE on DOS: 12/18/23, XY CHEST XRAY 1 VIEW on DOS: 11/30/23, XY CHEST PORTABLE on DOS: 11/29/23, XY CHEST PORTABLE on DOS: 11/14/23, XY CHEST PORTABLE on DOS: 05/01/23 FINDINGS: Lines and Tubes: AICD again noted overlying right chest wall Lungs: Clear Pleura: No effusion. No pneumothorax. Cardiomediastinal contours: Mild cardiomegaly Bones: Unremarkable IMPRESSION: No acute disease. Mild cardiomegaly. No appreciable change compared to the prior chest x-ray from December 2023. 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 The patient with significant cardiac history including low EF 10 % is a potential high-risk for surgery. There is no additional cardiac workup indicated prior to the surgery. Thank you for allowing us to participate in this patient's care. (Risk Stratification for surgery discussed with Dr. Blankenship) Plan discussed with: Patient NYHA Physical activity limitations: Class4(Severe)discomfort Date of Service: Sep 20, 2024 Billing Provider: ABRBIE STARKS MD Cardiology Common Codes: NOT BILLABLE BARBIE STARKS MD 09/20/24 1339: Family History: Diabetes mellitus G8 MOTHER G8 FATHER FH: cancer G8 MOTHER FH: heart failure G8 FATHER Allergies: Coded Allergies: Morphine (Verified Allergy, Unknown, 03/08/22) Home Meds Active Scripts Albuterol Sulfate (Proair Digihaler) 108 Mcg/Act Aer, 1-2 PUFF IN Q6HP PRN, #1 AER Prov:AYO HIDALGO MD 12/19/23 Empagliflozin (Jardiance) 10 Mg Tab, 10 MG PO DAILY for 30 Days, #30 TAB 2 Refills Prov:MIHIR ANN RESIDENT 11/16/23 Reported Medications Glimepiride (Glimepiride) 1 Mg Tab, 1 MG PO for 30 Days, MG 11/30/23 Nitroglycerin (NTROSTAT SUBLINGUAL) 0.4 Mg Sl, 0.4 MG SL PRN, TAB *MAY REPEAT EVERY 5 MINUTES X 3 TOTAL IF NO RELIEF, INITIATE ANALGESIC THERAPY. NOTIFY PHYSICIAN *Do not crush. 08/21/23 Omeprazole (Gnp Omeprazole) 20 Mg Tab, 1 TAB PO DAILY, #90 TAB 1 Refill 08/21/23 Furosemide (Furosemide) 40 Mg Tab, 1 TAB PO DAILY 08/21/23 Allopurinol (Allopurinol) 300 Mg Tab, 300 MG PO MWF, TAB 08/20/23 Aspirin (Aspirin) 81 Mg Chw, 81 MG PO DAILY, TAB.CHEW 08/20/23 Lovastatin (Lovastatin) 40 Mg Tab, 1 TAB PO 08/20/23 Metoprolol Succinate (Metoprolol Succinate Er) 25 Mg Tab, 1 TAB PO DAILY 08/20/23 Plan/Recommendation PATIENT SEEN WITH RN HE HAS END STAGE HF WHICH IS CHRONIC AND OLD HAS ICD AND CABG HIGH RISK FOR PERIOP RISK, PT AWARE risks benefits to be discussed with surgical team HR and bp stable no further recs to optimize patient Plan discussed with: Patient LOLA MENDEZ [employer] [employer] Sep 20, 2024 13:03 BARBIE STARKS MD Sep 20, 2024 13:39
--- NOTE | 2024-09-20 13:26 | DVHSR ---
APPROVED REPORT EXAM: Two-dimensional and M-mode echocardiogram with Doppler and color Doppler. Blood Pressure: 126/70 mmHg INDICATION Pre-Op Surgery/Intervention Pacemaker: CABG: RISK FACTORS Height: 5' 7", Weight: 152 DIMENSIONS LVDd5.8 (3.8-5.7cm)LA (2D)4.3 (1.9-4.0cm)Aortic Root3.8 (2.0-3.7cm) LVDs5.7 (2.5-4.0cm)LA (MM) (1.9-4.0cm)Aortic Cusp Exc1.6 (1.5-2.0cm) EF (%) 6.0 (55-70%)Rt. Atrium4.4 (1.9-4.0cm)Asc. Aorta cm IVSd1.1 (0.7-1.1cm)RV (D)3.9 (1.8-2.4cm) PWd1.1 (0.7-1.1cm) Mitral Valve MitralMitral Stenosis E wave0.60m/sMV Mean GR.mmHg A wave0.70m/sMV Peak GR.mmHg E/A ratio0.92D MVAcm2 Aortic Valve Aortic ValveAortic Stenosis V10.60m/Aidan Mean GR.3mmHg V21.30m/Aidan Peak GR.7mmHg LVOT Diameter2.5 (1.8-2.4cm)Doppler AVA2.26cm2 AI P 1/2 Eeip085.78ms Pulmonic Valve V20.50m/s Tricuspid Valve TR Velocity2.60m/s [id number] Conclusion lvef 10% by visual estiamte severe dilated LV RV dysfunction wiith pacing lead mild to moderate MR moderate aortic regurg
[2024-09-21] VITALS (9 sets, daily range): BP systolic 92–142; BP diastolic 45–77; PULSE 65–97; RESP 16–20; TEMP 97.4–98.2; O2SAT 95–100
--- NOTE | 2024-09-21 09:56 | DVHPN2 ---
Reviewed: Care Plan, H&P, Labs, Medications, Previous Orders, Radiology Changes from previous H/P or p: No Changes Eyes: No Pain, No Vision change, No Conjunctivae inflammation, No Eyelid inflammation, No Other, No Redness ENT: No Ear pain, No Ear discharge, No Nose pain, No Nose discharge, No Nose congestion, No Mouth pain, No Mouth swelling, No Throat pain, No Throat swelling, No Other Cardiovascular: No Chest Pain, No Palpitations, No Orthopnea, No Paroxysmal Noc. Dyspnea, No Edema, No Lt Headedness, No Other Respiratory: No Cough, No Dry, No Shortness of breath, No SOB with excertion, No Wheezing, No Hemoptysis, No Pleuritic Pain, No Sputum, No Other Gastrointestinal: No Nausea, No Vomiting, No Abdominal Pain, No Diarrhea, No Constipation, No Melena, No Hematochezia, No Other Genitourinary: No Dysuria, No Frequency, No Incontinence, No Hematuria, No Retention, No Other Musculoskeletal: leg pain (Right hip) Skin: No Rash, No Lesions, No Jaundice, No Bruising, No Other Objective Vitals Vital Signs Date Time Temp Pulse Resp B/P (MAP) Pulse Ox O2 Delivery O2 Flow Rate FiO2 09/21/24 09:00 97.5 74 20 134/77 (96) 98 97.5 09/20/24 19:50 Nasal Cannula* 2 28 Intake/Output Intake and Output 09/21/24 07:00 Intake Total 500 ml Output Total 1150 ml Balance -650 ml Intake Oral 500 ml Output Urine Total 1150 ml Medications Current Medications Medications Dose Ordered Sig/Jessica Route Start Time Stop Time Status Last Admin Dose Admin Ondansetron HCl 4 mg Q4HP PRN IV 09/19/24 22:45 09/21/24 08:07 4 MG Enoxaparin Sodium 40 mg DAILY SC 09/20/24 10:00 09/21/24 07:50 40 MG Nitroglycerin 0.4 mg Q5MINP PRN SL 09/19/24 22:45 Morphine Sulfate 2 mg Q30M PRN IV 09/19/24 22:45 Pantoprazole Sodium 40 mg DAILY IV 09/19/24 22:45 09/21/24 07:49 40 MG Hydralazine HCl 10 mg Q6HP PRN IV 09/19/24 22:45 Diagnostic Test (Pha) 1 strip ACHS 09/20/24 07:00 09/21/24 05:43 1 STRIP Insulin Human Regular ACHS SC 09/20/24 07:00 09/21/24 05:46 2 UNITS Dextrose 50 ml UD PRN IV 09/19/24 22:45 Metoprolol Succinate 25 mg DAILY PO 09/19/24 23:00 09/19/24 23:34 25 MG Temazepam 15 mg HSPRN PRN PO 09/19/24 23:45 09/19/24 23:50 15 MG Hydromorphone HCl 2 mg Q4HPRN PRN IV 09/20/24 09:45 09/21/24 07:49 2 MG Laboratory Results Laboratory Tests 09/19/24 20:47 Urinalysis Test 09/20/24 00:00 Urine Color Yellow (Yellow) Urine Clarity Clear (Clear) Urine pH 7.5 (5.0-9.0) Urine Specific [place] 1.026 (1.001-1.035) Urine Protein Trace (Negative) H Urine Ketones 1+ (Negative) H Urine Blood Negative /uL (Negative) Urine Nitrite Negative (Negative) Urine Bilirubin Negative (Negative) Urine Urobilinogen Normal mg/dL (Negative) Urine Leukocyte Esterase Negative /uL (Negative) Urine RBC 3 /hpf (0 - 3) Urine Microscopic WBC 1 /HPF (0-3) Urine Squamous Epithelial Cells None seen /hpf (<5) Urine Bacteria None seen /hpf (None Seen) Urine Glucose 4+ mg/dL (Normal) H Labs and/or images reviewed: Labs reviewed by me, Image(s) reviewed by me Assessment/Plan Assessment/Plan Acute right intertrochanteric fracture femur: Ortho planning for surgery after Cardiac clearance, per Cardiology patient is a very high risk for surgery secondary to ejection fraction 10% Mechanical fall History of coronary artery disease and [place] status post CABG multiple stents Acute on chronic congestive heart failure Hypertension Hypercholesterolemia Uncontrolled diabetes: Insulin sliding scale Hypothyroidism Chronic kidney disease History of stomach cancer status post resection History of esophageal cancer status post resection History of AICD 09/04/2023 PE ruled out Flu test negative COVID test negative Condition guarded Time spent 55 minutes Advanced care planning time 20 minutes Patient is full code Chitra [phone] at bedside; she and the patient to discuss with the ortho to decide whether to go ahead with the surgery or not. Plan discussed with: Patient My Orders Orders - KATY RAMIREZ MD Procedure Category Date Status Time * Cardiology Consult CONS 09/20/24 Transmitted 12:35 Date of Service: Sep 21, 2024 Billing Provider: KATY RAMIREZ MD Common Visit Codes: [id number] INP/OBS CARE(HIGH) Secondary Visit Codes: [id number] CARE PLAN 30 MINUTES KATY RAMIREZ MD Sep 21, 2024 09:56
[2024-09-22] VITALS (11 sets, daily range): BP systolic 116–158; BP diastolic 59–75; PULSE 63–85; RESP 12–19; TEMP 97.4–98.6; O2SAT 95–100
[2024-09-22 06:30] LABS: Basophils # (auto) 0 10 ^3/uL (0-0.2); Basophils % (auto) 0.4 % (0.0-2.0); Eosinophils # (auto) 0.3 10 ^3/uL (0-0.8); Eosinophils % (auto) 4.1 % (0.0-7.0); Hematocrit 44.1 % (41.0-53.0); Hemoglobin 14.5 g/dL (13.5-17.5); Lymphocytes # (auto) 1.3 10 ^3/uL (0.4-5.4); Lymphocytes % (auto) 17.8 % (10.0-50.0); Mean Corpuscular Hemoglobin 30.9 pg (28.0-32.0); Mean Corpuscular Volume 93.7 fL (80.0-100.0); Monocytes # (auto) 0.9 10 ^3/uL (0-1.3); Monocytes % (auto) 12.2 % (0.0-12.0); Neutrophils # (auto) 4.8 10 ^3/uL (1.6-8.6); Neutrophils % (auto) 65.5 % (37.0-80.0); Platelet Count (auto) 141 10^3/uL (140-450); Red Blood Cells 4.71 10^6/uL (4.5-5.90); Red Cell Distribution Width 13.8 % (11.8-14.3); White Blood Cell 7.4 10^3/uL (4.4-10.8)
[2024-09-22 06:33] LABS: Chloride 103 mmol/L (98-107); Potassium 4.9 mmol/L (3.5-5.1); Sodium 139 mmol/L (136-145)
[2024-09-22 06:34] LABS: Anion Gap 9 (5-15); Calcium 10.3 mg/dL (8.7-10.4); Carbon Dioxide 27 mmol/L (20-31)
[2024-09-22 06:36] LABS: INR 1.06 (0.9-1.15); Partial Thromboplastin Time 28.9 SEC (24.5-34.5); Prothrombin Time 11.2 sec (9.3-11.8)
[2024-09-22 06:39] LABS: BUN/Creatinine Ratio 18.1 (10.0-20.0)
[2024-09-22 06:40] LABS: Blood Urea Nitrogen 31 mg/dL (9-23); Glucose 140 mg/dL (74-106)
[2024-09-22] MEDS ORDERED: MIDAZOLAM HCL 2MG/2ML 2ml VIAL (1mg/ml) ONE (07:44)
[2024-09-22] MEDS ORDERED: ONDANSETRON HCL 4 MG/2 ML VIAL ONE (07:47)
[2024-09-22] MEDS ORDERED: GLYCOPYRROLATE 0.2 MG/ML 1ML VIAL ONE (07:47)
[2024-09-22] MEDS ORDERED: EPINEPHrine HCL 1 MG/1 ML AMP ONE (07:47)
[2024-09-22 08:44] LABS: Hepatitis B Surface Antigen Negative (Negative)
[2024-09-22 09:05] LABS: Hepatitis C Antibody Negative (Negative)
--- NOTE | 2024-09-22 09:29 | ECG ---
[facility] Test Date: 2024-09-22 Test Time: 02:25:05 Pat Name: ZAKIA PINEDA Department: Respiratoy Room: 0218T Gender: M Medical Front Desk Coordinator: ZEENAT : 1950 Requested By: KATY RAMIREZ Order Number: [id number] Reading MD: Justin Guerrero Measurements Intervals [place] Rate: 72 P: 101 LA: 232 QRS: 83 QRSD: 114 T: -10 QT: 463 QTc: 507 Interpretive Statements Sinus rhythm Prolonged LA interval LVH w/ repol abnormalities, possible ischemia Prolonged QT interval Electronically Signed On 09-25-2024 20:49:54 PST by Justin Guerrero Please click the below link to view image of tracing.
[2024-09-22] MEDS ORDERED: ceFAZolin 1GM VL ONE (09:33)
[2024-09-22] MEDS: BUPIVACAINE 0.25% INJ 50ML VIAL ONE (09:47)
[2024-09-22] MEDS: Lidocaine/Epinephrine 1%-1:100,000 30ML VL ONE (09:47)
[2024-09-22] MEDS ORDERED: fentaNYL CITRATE 100 MCG/2 ML VL ONE (10:07)
[2024-09-22] MEDS: ACCU-CHEK COMFORT CURVE STRIP VI ONE (10:30)
--- NOTE | 2024-09-22 10:30 | DVH ---
C-ARM FLUOROSCOPY: PROCEDURE: Right trochanter nailing FLUOROSCOPY TIME: 49 sec DAP: 3.9 mgy FINDINGS: Spot intraoperative C arm radiographs demonstrating right trochanter nail. IMPRESSION: Please refer to surgical report for detailed findings.
--- NOTE | 2024-09-22 10:30 | DVH ---
C-ARM FLUOROSCOPY: PROCEDURE: Right trochanter nailing FLUOROSCOPY TIME: 49 sec DAP: 3.9 mgy FINDINGS: Spot intraoperative C arm radiographs demonstrating right trochanter nail. IMPRESSION: Please refer to surgical report for detailed findings.
[2024-09-22] MEDS ORDERED: HYDROmorphone HCL 2 MG/ML VL/or syr ONE (10:31)
[2024-09-22] MEDS: HYDROmorphone HCL 2 MG/ML VL/or syr IV PRN (10:33)
--- NOTE | 2024-09-22 11:01 | DVHPN2 ---
Reviewed: Care Plan, H&P, Labs, Medications, Previous Orders, Radiology Changes from previous H/P or p: No Changes Eyes: No Pain, No Vision change, No Conjunctivae inflammation, No Eyelid inflammation, No Other, No Redness ENT: No Ear pain, No Ear discharge, No Nose pain, No Nose discharge, No Nose congestion, No Mouth pain, No Mouth swelling, No Throat pain, No Throat swelling, No Other Cardiovascular: No Chest Pain, No Palpitations, No Orthopnea, No Paroxysmal Noc. Dyspnea, No Edema, No Lt Headedness, No Other Respiratory: No Cough, No Dry, No Shortness of breath, No SOB with excertion, No Wheezing, No Hemoptysis, No Pleuritic Pain, No Sputum, No Other Gastrointestinal: No Nausea, No Vomiting, No Abdominal Pain, No Diarrhea, No Constipation, No Melena, No Hematochezia, No Other Genitourinary: No Dysuria, No Frequency, No Incontinence, No Hematuria, No Retention, No Other Musculoskeletal: leg pain (Right hip) Skin: No Rash, No Lesions, No Jaundice, No Bruising, No Other Objective Vitals Vital Signs Date Time Temp Pulse Resp B/P (MAP) Pulse Ox O2 Delivery O2 Flow Rate FiO2 09/22/24 10:13 85 12 100 Mask 6.0 09/22/24 10:13 100 09/22/24 09:00 98.2 116/59 (78) 98.2 Intake/Output Intake and Output 09/22/24 07:00 Intake Total 440 ml Output Total 625 ml Balance -185 ml Intake Oral 440 ml Output Urine Total 625 ml Medications Current Medications Medications Dose Ordered Sig/Jessica Route Start Time Stop Time Status Last Admin Dose Admin Ondansetron HCl 4 mg Q4HP PRN IV 09/19/24 22:45 09/22/24 01:56 4 MG Enoxaparin Sodium 40 mg DAILY SC 09/20/24 10:00 09/21/24 07:50 40 MG Nitroglycerin 0.4 mg Q5MINP PRN SL 09/19/24 22:45 Morphine Sulfate 2 mg Q30M PRN IV 09/19/24 22:45 Pantoprazole Sodium 40 mg DAILY IV 09/19/24 22:45 09/21/24 07:49 40 MG Hydralazine HCl 10 mg Q6HP PRN IV 09/19/24 22:45 Diagnostic Test (Pha) 1 strip ACHS 09/20/24 07:00 09/22/24 05:46 1 STRIP Insulin Human Regular ACHS SC 09/20/24 07:00 09/21/24 17:08 3 UNITS Dextrose 50 ml UD PRN IV 09/19/24 22:45 Metoprolol Succinate 25 mg DAILY PO 09/19/24 23:00 09/19/24 23:34 25 MG Temazepam 15 mg HSPRN PRN PO 09/19/24 23:45 09/19/24 23:50 15 MG Hydromorphone HCl 2 mg Q4HPRN PRN IV 09/20/24 09:45 09/22/24 01:59 2 MG Hydromorphone HCl 0.25 mg Q10M PRN IV 09/22/24 10:30 09/22/24 11:01 UNV 09/22/24 10:44 0.25 MG Cefazolin Sodium 50 ml @ 100 mls/hr Q8HR IV 09/22/24 14:00 09/23/24 06:29 UNV Laboratory Results Laboratory Tests 09/22/24 05:30 Chemistry Test 09/22/24 05:30 Calcium Level 10.3 mg/dL (8.7-10.4) Coagulation Test 09/22/24 05:30 Prothrombin Time 11.2 sec (9.3-11.8) Prothrombin Time INR 1.06 (0.9-1.15) Activated Partial Thromboplast Time 28.9 SEC (24.5-34.5) Urinalysis Test 09/20/24 00:00 Urine Color Yellow (Yellow) Urine Clarity Clear (Clear) Urine pH 7.5 (5.0-9.0) Urine Specific [place] 1.026 (1.001-1.035) Urine Protein Trace (Negative) H Urine Ketones 1+ (Negative) H Urine Blood Negative /uL (Negative) Urine Nitrite Negative (Negative) Urine Bilirubin Negative (Negative) Urine Urobilinogen Normal mg/dL (Negative) Urine Leukocyte Esterase Negative /uL (Negative) Urine RBC 3 /hpf (0 - 3) Urine Microscopic WBC 1 /HPF (0-3) Urine Squamous Epithelial Cells None seen /hpf (<5) Urine Bacteria None seen /hpf (None Seen) Urine Glucose 4+ mg/dL (Normal) H Labs and/or images reviewed: Labs reviewed by me, Image(s) reviewed by me Assessment/Plan Assessment/Plan Acute right intertrochanteric fracture femur: Ortho planning for surgery after Cardiac clearance, per Cardiology patient is a very high risk for surgery secondary to ejection fraction 10%; patient getting surgery by Dr Chand today Mechanical fall History of coronary artery disease and [place] status post CABG multiple stents Acute on chronic congestive heart failure Hypertension Hypercholesterolemia Uncontrolled diabetes: Insulin sliding scale Hypothyroidism Chronic kidney disease History of stomach cancer status post resection History of esophageal cancer status post resection History of AICD 09/04/2023 PE ruled out Flu test negative COVID test negative Condition guarded Time spent 55 minutes Advanced care planning time 20 minutes Patient is full code Chitra [phone] at bedside; she and the patient to discuss with the ortho to decide whether to go ahead with the surgery or not. Plan discussed with: Patient Date of Service: Sep 22, 2024 Billing Provider: KATY RAMIREZ MD Common Visit Codes: [id number] INP/OBS CARE(HIGH) KATY RAMIREZ MD Sep 22, 2024 11:01
[2024-09-22] MEDS: FAMOTIDINE (10MG/ML) 2ML VL IV ONE (11:41)
[2024-09-22] MEDS: ceFAZolin 1GM/50ML 50 ML IV SCH (14:43)
[2024-09-23] VITALS (8 sets, daily range): BP systolic 108–145; BP diastolic 51–69; PULSE 37–75; RESP 16–19; TEMP 97.4–99.4; O2SAT 93–100
--- NOTE | 2024-09-23 06:13 | DVHOP2 ---
Operative Report - 2 Report Details Date: 09/22/24 Preop Diagnosis: Right hip intertrochanteric fracture Postop Diagnosis: as above Surgeon: Fredi Chand MD Heat Treat Worker: Xander MO Anesthesiologist: Lio CHASE Anesthesia: Mac, Local Implant: AOS short troch nail/ lag screw/ locking screw cerament Consent: The patient was informed of the risks and benefits of the procedure. These include but are not limited to complications of anesthesia, postoperative infection, incomplete relief of symptoms, recurrence of symptoms, damage to blood vessels, nerves and tendons, deep venous thrombosis, pulmonary embolism and possible need for repeat surgery in the future. Estimated Blood Loss: 50 cc Name of Procedure Performed Open reduction internal fixation of right hip fracture, iliotibial band fascia nerve block, intraop fluoro Procedure Details Procedure Details: In the preoperative holding area, the consent was reviewed and the appropriate extremity was verified by the patient and marked with my initials. The patient was then transferred to the operating theatre. Patient was placed on a fracture table. Appropriate anesthetia was induced which was light sedation. All bony prominences were well padded. A time out was performed verifying the side and site of surgery according to standard protocol. Preoperative antibiotics were given. The extremity was then prepped and draped in the usual sterile fashion. Using c-arm, the fracture was reduced using the fracture table and a combination of maneuvers including traction, internal rotation, and flexion. I then did a iliofascia nerve block. An incision was made over the greater trochanter confirming correct position with c-arm. A guide wire was drilled into the tip of the greater trochanter, centered A to P. We used the starting reamer to gain entry to the femoral canal. A short nail was then placed. A guide pin was then drilled in the center of the femoral head confirmed using fluoroscopy. We measured the screw lengths. Using a cannulated drill, we drilled the lateral cortex. The screws were then introduced. Once positioned, we once again confirmed that the screws were with the femoral head. Attention was turned distally. We used the targeting device to drill through the nail and the femur. This was measured using the device, and the screw was placed with good purchase. Final xrays were taken showing the hardware in perfect position. The wound was copiously irrigated. No fractures were seen on the r est of the femur. The fascia was closed with #1 Vicryl, the skin closed #2-0 Vicryl, and felipe. A dry sterile dressing was placed on the patient. The patient was transferred to the recovery room in stable condition. Condition Fair Disposition Still a Patient FREDI CHAND MD Sep 23, 2024 06:13
--- NOTE | 2024-09-23 07:59 | DVHPN2 ---
Progress Note Date Seen: Sep 23, 2024 Medical Necessity Reason Pt with a Central, PICC or Fol: Yes The following are medically ne: Alejandra Catheter Subjective Patient reports: No new complaints Objective vital signs Vital Sign Date Time Temp Pulse Resp B/P (MAP) Pulse Ox O2 Delivery O2 Flow Rate FiO2 09/23/24 05:09 97.9 75 17 140/69 (92) 100 97.9 09/22/24 20:00 Nasal Cannula* 2 28 Total Intake and Output 09/22/24 09/22/24 09/23/24 15:00 23:00 07:00 Intake Total 100 ml 530 ml 50 ml Output Total 200 ml 400 ml Balance 100 ml 330 ml -350 ml medications Current Medications Medications Dose Ordered Sig/Jessica Route Start Time Stop Time Status Last Admin Dose Admin Ondansetron HCl 4 mg Q4HP PRN IV 09/19/24 22:45 09/22/24 14:20 4 MG Enoxaparin Sodium 40 mg DAILY SC 09/20/24 10:00 09/22/24 12:13 40 MG Nitroglycerin 0.4 mg Q5MINP PRN SL 09/19/24 22:45 Morphine Sulfate 2 mg Q30M PRN IV 09/19/24 22:45 Pantoprazole Sodium 40 mg DAILY IV 09/19/24 22:45 09/22/24 12:14 40 MG Hydralazine HCl 10 mg Q6HP PRN IV 09/19/24 22:45 Diagnostic Test (Pha) 1 strip ACHS 09/20/24 07:00 09/23/24 05:43 1 STRIP Insulin Human Regular ACHS SC 09/20/24 07:00 09/23/24 05:46 2 UNITS Dextrose 50 ml UD PRN IV 09/19/24 22:45 Metoprolol Succinate 25 mg DAILY PO 09/19/24 23:00 09/22/24 12:15 25 MG Temazepam 15 mg HSPRN PRN PO 09/19/24 23:45 09/19/24 23:50 15 MG Hydromorphone HCl 2 mg Q4HPRN PRN IV 09/20/24 09:45 09/23/24 04:17 2 MG Examination: GENERAL:Normal, MSK:Abnormal laboratory and microbiology Laboratory Tests 09/22/24 05:30 Test 09/22/24 05:30 Range/Units Serum Glucose 140 H 74-106 mg/dL Problem List/Assessment/Plan Problem List/Assessment/Plan 74 year old male who is s/p ORIF right hip POD 1 1. Aquacel dressings intact, informed patient no dressing changes are necessary and can remain in place for 2 weeks 2. Will plan for 2 week follow up at [facility] ortho clinic downstairs for staple removal and wound check 3. WBAT RLE with use of walker 4. DVT ppx 5. Physical therapy 6. Clear for discharge from orthopedic standpoint once medically optimized Plan discussed with: Patient Dietary Evaluation Review Comments: 1. Recommend timely diet advancement as medically able to Carb Consistent (60 gm/meal) diet; texture per MD/COSTUME DIRECTOR discretion (previously on mechanical soft) 2. Continue frequent POC BG checks for excellent glycemic control; goal BG >70, <180 mg/dl while inpatient 3. Suggest oral nutrition supplements (Glucerna BID) to optimize pts nutritional status post-op Expected Outcomes/Goals: Improved post-op healing, improved nutritional status, excellent glycemic control Date of Service: Sep 23, 2024 Billing Provider: NADEEM BARRERA MD Common Visit Codes: NOT BILLABLE ALEN ANAND NP Sep 23, 2024 07:59
--- NOTE | 2024-09-23 09:21 | DVHPN2 ---
Reviewed: Care Plan, H&P, Labs, Medications, Previous Orders, Radiology Changes from previous H/P or p: No Changes Eyes: No Pain, No Vision change, No Conjunctivae inflammation, No Eyelid inflammation, No Other, No Redness ENT: No Ear pain, No Ear discharge, No Nose pain, No Nose discharge, No Nose congestion, No Mouth pain, No Mouth swelling, No Throat pain, No Throat swelling, No Other Cardiovascular: No Chest Pain, No Palpitations, No Orthopnea, No Paroxysmal Noc. Dyspnea, No Edema, No Lt Headedness, No Other Respiratory: No Cough, No Dry, No Shortness of breath, No SOB with excertion, No Wheezing, No Hemoptysis, No Pleuritic Pain, No Sputum, No Other Gastrointestinal: No Nausea, No Vomiting, No Abdominal Pain, No Diarrhea, No Constipation, No Melena, No Hematochezia, No Other Genitourinary: No Dysuria, No Frequency, No Incontinence, No Hematuria, No Retention, No Other Musculoskeletal: leg pain (Right hip) Skin: No Rash, No Lesions, No Jaundice, No Bruising, No Other Objective Vitals Vital Signs Date Time Temp Pulse Resp B/P (MAP) Pulse Ox O2 Delivery O2 Flow Rate FiO2 09/23/24 09:00 97.4 69 18 145/63 (90) 98 97.4 09/22/24 20:00 Nasal Cannula* 2 28 Intake/Output Intake and Output 09/23/24 07:00 Intake Total 680 ml Output Total 600 ml Balance 80 ml Intake Oral 480 ml IV Total 200 ml Output Urine Total 600 ml Medications Current Medications Medications Dose Ordered Sig/Jessica Route Start Time Stop Time Status Last Admin Dose Admin Ondansetron HCl 4 mg Q4HP PRN IV 09/19/24 22:45 09/22/24 14:20 4 MG Enoxaparin Sodium 40 mg DAILY SC 09/20/24 10:00 09/22/24 12:13 40 MG Nitroglycerin 0.4 mg Q5MINP PRN SL 09/19/24 22:45 Morphine Sulfate 2 mg Q30M PRN IV 09/19/24 22:45 Pantoprazole Sodium 40 mg DAILY IV 09/19/24 22:45 09/22/24 12:14 40 MG Hydralazine HCl 10 mg Q6HP PRN IV 09/19/24 22:45 Diagnostic Test (Pha) 1 strip ACHS 09/20/24 07:00 09/23/24 05:43 1 STRIP Insulin Human Regular ACHS SC 09/20/24 07:00 09/23/24 05:46 2 UNITS Dextrose 50 ml UD PRN IV 09/19/24 22:45 Metoprolol Succinate 25 mg DAILY PO 09/19/24 23:00 09/22/24 12:15 25 MG Temazepam 15 mg HSPRN PRN PO 09/19/24 23:45 09/19/24 23:50 15 MG Hydromorphone HCl 2 mg Q4HPRN PRN IV 09/20/24 09:45 09/23/24 04:17 2 MG Laboratory Results Laboratory Tests 09/22/24 05:30 Urinalysis Test 09/20/24 00:00 Urine Color Yellow (Yellow) Urine Clarity Clear (Clear) Urine pH 7.5 (5.0-9.0) Urine Specific [place] 1.026 (1.001-1.035) Urine Protein Trace (Negative) H Urine Ketones 1+ (Negative) H Urine Blood Negative /uL (Negative) Urine Nitrite Negative (Negative) Urine Bilirubin Negative (Negative) Urine Urobilinogen Normal mg/dL (Negative) Urine Leukocyte Esterase Negative /uL (Negative) Urine RBC 3 /hpf (0 - 3) Urine Microscopic WBC 1 /HPF (0-3) Urine Squamous Epithelial Cells None seen /hpf (<5) Urine Bacteria None seen /hpf (None Seen) Urine Glucose 4+ mg/dL (Normal) H Labs and/or images reviewed: Labs reviewed by me, Image(s) reviewed by me Assessment/Plan Assessment/Plan Acute right intertrochanteric fracture femur: Status post Open reduction internal fixation of right hip fracture by Dr Chand on 09-22-24, Mechanical fall History of coronary artery disease and [place] status post CABG with multiple stents Acute on chronic congestive heart failure Hypertension Hypercholesterolemia Uncontrolled diabetes: Insulin sliding scale Hypothyroidism Chronic kidney disease History of stomach cancer status post resection History of esophageal cancer status post resection History of AICD 09/04/2023 PE ruled out Flu test negative COVID test negative Physical therapy ordered Orthopedic cleared for discharge Plan discussed with: Patient My Orders Orders - KATY RAMIREZ MD Procedure Category Date Status Time Dme: Walker DME 09/23/24 Transmitted 09:14 * Solar Project Coordination Specialist CONS 09/23/24 Transmitted Consult Date of Service: Sep 23, 2024 Billing Provider: KATY RAMIREZ MD Common Visit Codes: [id number] INP/OBS CARE(HIGH) KATY RAMIREZ MD Sep 23, 2024 09:21
[2024-09-23] MEDS ORDERED: HYDR-4902 PO (09:22)
[2024-09-23] MEDS ORDERED: RIVA10TA PO (09:22)
--- NOTE | 2024-09-23 09:31 | DVHDS2 ---
Discharge Summary Date of Admission Sep 19, 2024 at 22:32 Date of Discharge: Sep 23, 2024 Admitting Diagnosis Fracture right hip Wounds: ORIF right hip fracture Labs/Diagnostic Data: Laboratory Results Test 09/23/24 05:39 09/22/24 05:30 09/20/24 18:21 09/20/24 08:31 POC Glucose 156 mg/dl (70-106) White Blood Count 7.4 10^3/uL (4.4-10.8) Red Blood Count 4.71 10^6/uL (4.5-5.90) Hemoglobin 14.5 g/dL (13.5-17.5) Hematocrit 44.1 % (41.0-53.0) Mean Corpuscular Volume 93.7 fL (80.0-100.0) Mean Corpuscular Hemoglobin 30.9 pg (28.0-32.0) Mean Corpuscular Hemoglobin Concent 33.0 g/dL (32.0-36.0) Red Cell Distribution Width 13.8 % (11.8-14.3) Platelet Count 141 10^3/uL (140-450) Mean Platelet Volume 10.4 fL (6.9-10.8) Neutrophils (%) (Auto) 65.5 % (37.0-80.0) Lymphocytes (%) (Auto) 17.8 % (10.0-50.0) Monocytes (%) (Auto) 12.2 % (0.0-12.0) Eosinophils (%) (Auto) 4.1 % (0.0-7.0) Basophils (%) (Auto) 0.4 % (0.0-2.0) Neutrophils # (Auto) 4.8 10 ^3/uL (1.6-8.6) Lymphocytes # (Auto) 1.3 10 ^3/uL (0.4-5.4) Monocytes # (Auto) 0.9 10 ^3/uL (0-1.3) Eosinophils # (Auto) 0.3 10 ^3/uL (0-0.8) Basophils # (Auto) 0 10 ^3/uL (0-0.2) Nucleated Red Blood Cells 0.0 % Prothrombin Time 11.2 sec (9.3-11.8) Prothrombin Time INR 1.06 (0.9-1.15) Activated Partial Thromboplast Time 28.9 SEC (24.5-34.5) Sodium Level 139 mmol/L (136-145) Potassium Level 4.9 mmol/L (3.5-5.1) Chloride Level 103 mmol/L (98-107) Carbon Dioxide Level 27 mmol/L (20-31) Anion Gap 9 (5-15) Blood Urea Nitrogen 31 mg/dL (9-23) Creatinine 1.71 mg/dL (0.700-1.30) Glomerular Filtration Rate Calc 41 mL/min (>90) BUN/Creatinine Ratio 18.1 (10.0-20.0) Serum Glucose 140 mg/dL (74-106) Calcium Level 10.3 mg/dL (8.7-10.4) Troponin I High Sensitivity 48 ng/L (</=54) Hepatitis B Surface Antigen Negative (Negative) Hepatitis C Antibody Negative (Negative) Test 09/20/24 00:55 09/20/24 00:00 09/19/24 20:47 Influenza Type A Antigen Negative (Negative) Influenza Type B Antigen Negative (Negative) SARS-CoV-2 Antigen (Rapid) Negative (NEGATIVE) Urine Color Yellow (Yellow) Urine Clarity Clear (Clear) Urine pH 7.5 (5.0-9.0) Urine Specific [place] 1.026 (1.001-1.035) Urine Protein Trace (Negative) Urine Ketones 1+ (Negative) Urine Blood Negative /uL (Negative) Urine Nitrite Negative (Negative) Urine Bilirubin Negative (Negative) Urine Urobilinogen Normal mg/dL (Negative) Urine Leukocyte Esterase Negative /uL (Negative) Urine RBC 3 /hpf (0 - 3) Urine Microscopic WBC 1 /HPF (0-3) Urine Squamous Epithelial Cells None seen /hpf (<5) Urine Bacteria None seen /hpf (None Seen) Urine Glucose 4+ mg/dL (Normal) Urine Opiates Screen Neg (NEGATIVE) Urine Fentanyl Screen Pos (NEGATIVE) Urine Barbiturates Screen Neg (NEGATIVE) Urine Phencyclidine Screen Neg (NEGATIVE) Urine Amphetamines Screen Neg (NEGATIVE) Urine Benzodiazepines Screen Neg (NEGATIVE) Urine Cocaine Screen Neg (NEGATIVE) Urine Cannabinoids Screen Neg (NEGATIVE) Magnesium Level 2.5 mg/dL (1.6-2.6) B-Type Natriuretic Peptide 445.52 pg/mL (0-100) Thyroid Stimulating Hormone (TSH) 11.77 uIU/mL (0.55-4.78) Free Thyroxine (T4) Calculated 1.04 ng/dL (0.89-1.76) Plasma/Serum Blood Alcohol < 3.0 mg/dL (<10) Other Laboratory Tests 09/22/24 05:30 Brief Hx & Hospital Course: 74-year-old male with a history of hypertension hypercholesterolemia diabetes hypothyroidism chronic kidney disease history of trauma cancer status post resection history of esophageal cancer status post resection history of AICD history of CO status post CABG had a mechanical fall sustained right intertrochanteric fracture femur. Underwent ORIF by . Postop course uneventful received physical therapy cleared for discharge by orthopedic discharged home on [place] and Xarelto Consults/Reason for consult Orthopedic Dr Chand Operations or Procedures ORIF right hip fracture Condition at Discharge: Fair Final Diagnosis/Problems List Acute right intertrochanteric fracture femur: Status post Open reduction internal fixation of right hip fracture by Dr Chand on 09-22-24, Mechanical fall History of coronary artery disease and [place] status post CABG with multiple stents Acute on chronic congestive heart failure Hypertension Hypercholesterolemia Uncontrolled diabetes: Insulin sliding scale Hypothyroidism Chronic kidney disease History of stomach cancer status post resection History of esophageal cancer status post resection History of AICD 09/04/2023 PE ruled out Flu test negative COVID test negative Discharge Disposition: Home Discharge Instruct/Medications Diet: Cardiac 2g Na,low cholest Activity: See Comment Activity comment: Partial weight-bearing right lower extremity Follow Up/Referral: Follow up with the orthopedic Dr Chand in two weeks Resume all previous home medications Medications: [place] Xarelto Transmitted to pharmacy 35 (Time taken for discharge summary 35 minutes) Discharge Statement: "Patient was advised to return to the ER or call 911 if any headaches, dizziness, shortness of breath, chest pain, abdominal pain, bleeding, fevers, or worsening of medical condition. Patient was counseled about treatment plan, medications, possible side effects, patientverbalized understanding. All questions were answered to the best of my ability. This discharge took greater then 30 minutes in planning, reviewing documentation, counseling the patient, and discussing with other team members." DME: Diagnosis: Status post surgery for fracture femur ASSESSMENT ASSESSMENT Hospital Course Uneventful Assessment Acute right intertrochanteric fracture femur: Status post Open reduction internal fixation of right hip fracture by Dr Chand on 09-22-24, Mechanical fall History of coronary artery disease and [place] status post CABG with multiple stents Acute on chronic congestive heart failure Hypertension Hypercholesterolemia Uncontrolled diabetes: Insulin sliding scale Hypothyroidism Chronic kidney disease History of stomach cancer status post resection History of esophageal cancer status post resection History of AICD 09/04/2023 PE ruled out Flu test negative COVID test negative Date of Service: Sep 23, 2024 Billing Provider: KATY RAMIREZ MD Common Visit Codes: [id number] DISCH DAY >30min KATY RAMIREZ MD Sep 23, 2024 09:31
[2024-09-23] MEDS ORDERED: OXYCODONE W/ ACETAMINOPHEN 5/325MG TABLET PO PRN (15:30)
[2024-09-23] MEDS: OXYCODONE W/ ACETAMINOPHEN 5/325MG TABLET PO PRN (15:44)
[2024-09-24] VITALS (9 sets, daily range): BP systolic 110–140; BP diastolic 54–78; PULSE 62–106; RESP 12–20; TEMP 98–98.3; O2SAT 91–98
--- NOTE | 2024-09-24 08:20 | DVHPN2 ---
Reviewed: Care Plan, H&P, Labs, Medications, Previous Orders, Radiology Changes from previous H/P or p: No Changes Eyes: No Pain, No Vision change, No Conjunctivae inflammation, No Eyelid inflammation, No Other, No Redness ENT: No Ear pain, No Ear discharge, No Nose pain, No Nose discharge, No Nose congestion, No Mouth pain, No Mouth swelling, No Throat pain, No Throat swelling, No Other Cardiovascular: No Chest Pain, No Palpitations, No Orthopnea, No Paroxysmal Noc. Dyspnea, No Edema, No Lt Headedness, No Other Respiratory: No Cough, No Dry, No Shortness of breath, No SOB with excertion, No Wheezing, No Hemoptysis, No Pleuritic Pain, No Sputum, No Other Gastrointestinal: No Nausea, No Vomiting, No Abdominal Pain, No Diarrhea, No Constipation, No Melena, No Hematochezia, No Other Genitourinary: No Dysuria, No Frequency, No Incontinence, No Hematuria, No Retention, No Other Musculoskeletal: leg pain (Right hip) Skin: No Rash, No Lesions, No Jaundice, No Bruising, No Other Objective Vitals Vital Signs Date Time Temp Pulse Resp B/P (MAP) Pulse Ox O2 Delivery O2 Flow Rate FiO2 09/24/24 05:00 98.3 63 18 126/56 (79) 97 98.3 09/23/24 20:00 Room Air* 0 21 Intake/Output Intake and Output 09/24/24 06:59 Intake Total 1470 ml Output Total 1200 ml Balance 270 ml Intake Oral 1470 ml Output Urine Total 1200 ml Medications Current Medications Medications Dose Ordered Sig/Jessica Route Start Time Stop Time Status Last Admin Dose Admin Ondansetron HCl 4 mg Q4HP PRN IV 09/19/24 22:45 09/24/24 04:15 4 MG Enoxaparin Sodium 40 mg DAILY SC 09/20/24 10:00 09/23/24 10:41 40 MG Nitroglycerin 0.4 mg Q5MINP PRN SL 09/19/24 22:45 Morphine Sulfate 2 mg Q30M PRN IV 09/19/24 22:45 Pantoprazole Sodium 40 mg DAILY IV 09/19/24 22:45 09/23/24 10:41 40 MG Hydralazine HCl 10 mg Q6HP PRN IV 09/19/24 22:45 Diagnostic Test (Pha) 1 strip ACHS 09/20/24 07:00 09/24/24 06:01 1 STRIP Insulin Human Regular ACHS SC 09/20/24 07:00 09/24/24 06:13 2 UNITS Dextrose 50 ml UD PRN IV 09/19/24 22:45 Metoprolol Succinate 25 mg DAILY PO 09/19/24 23:00 09/23/24 10:43 25 MG Temazepam 15 mg HSPRN PRN PO 09/19/24 23:45 09/19/24 23:50 15 MG Hydromorphone HCl 2 mg Q4HPRN PRN IV 09/20/24 09:45 09/23/24 21:26 2 MG Oxycodone/ Acetaminophen 2 tab Q4HP PRN PO 09/23/24 15:45 09/24/24 04:07 2 TAB Laboratory Results Laboratory Tests 09/22/24 05:30 Urinalysis Test 09/20/24 00:00 Urine Color Yellow (Yellow) Urine Clarity Clear (Clear) Urine pH 7.5 (5.0-9.0) Urine Specific [place] 1.026 (1.001-1.035) Urine Protein Trace (Negative) H Urine Ketones 1+ (Negative) H Urine Blood Negative /uL (Negative) Urine Nitrite Negative (Negative) Urine Bilirubin Negative (Negative) Urine Urobilinogen Normal mg/dL (Negative) Urine Leukocyte Esterase Negative /uL (Negative) Urine RBC 3 /hpf (0 - 3) Urine Microscopic WBC 1 /HPF (0-3) Urine Squamous Epithelial Cells None seen /hpf (<5) Urine Bacteria None seen /hpf (None Seen) Urine Glucose 4+ mg/dL (Normal) H Labs and/or images reviewed: Labs reviewed by me, Image(s) reviewed by me Assessment/Plan Assessment/Plan Acute right intertrochanteric fracture femur: Status post Open reduction internal fixation of right hip fracture by Dr Chand on 09-22-24, Mechanical fall History of coronary artery disease and [place] status post CABG with multiple stents Acute on chronic congestive heart failure Hypertension Hypercholesterolemia Uncontrolled diabetes: Insulin sliding scale Hypothyroidism Chronic kidney disease History of stomach cancer status post resection History of esophageal cancer status post resection History of AICD 09/04/2023 PE ruled out Flu test negative COVID test negative Physical therapy recommended jail facility placement, the patient will talk to his and get back to me on [facility] placement. Patient was discharged on 09/23/2024, but the patient unable to ambulate and ortho Dr Chand advised to keep the patient one more day, Plan discussed with: Patient My Orders Orders - KATY RAMIREZ MD Procedure Category Date Status Time Dme: Walker DME 09/23/24 Transmitted 09:14 * Stone Operator CONS 09/23/24 Transmitted Consult Discharge DISCHARGE 09/23/24 Transmitted 09:24 Date of Service: Sep 24, 2024 Billing Provider: KATY RAMIREZ MD Common Visit Codes: [id number] INP/OBS CARE(HIGH) KATY RAMIREZ MD Sep 24, 2024 08:20
[2024-09-25] VITALS (8 sets, daily range): BP systolic 134–154; BP diastolic 56–73; PULSE 67–80; RESP 14–19; TEMP 97.5–98.4; O2SAT 93–99
--- NOTE | 2024-09-25 08:38 | DVHPN2 ---
Reviewed: Care Plan, H&P, Labs, Medications, Previous Orders, Radiology Changes from previous H/P or p: No Changes Eyes: No Pain, No Vision change, No Conjunctivae inflammation, No Eyelid inflammation, No Other, No Redness ENT: No Ear pain, No Ear discharge, No Nose pain, No Nose discharge, No Nose congestion, No Mouth pain, No Mouth swelling, No Throat pain, No Throat swelling, No Other Cardiovascular: No Chest Pain, No Palpitations, No Orthopnea, No Paroxysmal Noc. Dyspnea, No Edema, No Lt Headedness, No Other Respiratory: No Cough, No Dry, No Shortness of breath, No SOB with excertion, No Wheezing, No Hemoptysis, No Pleuritic Pain, No Sputum, No Other Gastrointestinal: No Nausea, No Vomiting, No Abdominal Pain, No Diarrhea, No Constipation, No Melena, No Hematochezia, No Other Genitourinary: No Dysuria, No Frequency, No Incontinence, No Hematuria, No Retention, No Other Musculoskeletal: leg pain (Right hip) Skin: No Rash, No Lesions, No Jaundice, No Bruising, No Other Objective Vitals Vital Signs Date Time Temp Pulse Resp B/P (MAP) Pulse Ox O2 Delivery O2 Flow Rate FiO2 09/25/24 05:00 98.0 67 14 134/60 (84) 93 98.0 09/24/24 20:00 Room Air* 0 21 Intake/Output Intake and Output 09/25/24 07:00 Intake Total 925 ml Output Total 1000 ml Balance -75 ml Intake Oral 925 ml Output Urine Total 1000 ml Stool Total 0 ml Medications Current Medications Medications Dose Ordered Sig/Jessica Route Start Time Stop Time Status Last Admin Dose Admin Ondansetron HCl 4 mg Q4HP PRN IV 09/19/24 22:45 09/25/24 03:20 4 MG Enoxaparin Sodium 40 mg DAILY SC 09/20/24 10:00 09/24/24 08:49 40 MG Nitroglycerin 0.4 mg Q5MINP PRN SL 09/19/24 22:45 Morphine Sulfate 2 mg Q30M PRN IV 09/19/24 22:45 Pantoprazole Sodium 40 mg DAILY IV 09/19/24 22:45 09/24/24 08:49 40 MG Hydralazine HCl 10 mg Q6HP PRN IV 09/19/24 22:45 Diagnostic Test (Pha) 1 strip ACHS 09/20/24 07:00 09/25/24 06:19 1 STRIP Insulin Human Regular ACHS SC 09/20/24 07:00 09/25/24 06:19 2 UNITS Dextrose 50 ml UD PRN IV 09/19/24 22:45 Metoprolol Succinate 25 mg DAILY PO 09/19/24 23:00 09/24/24 08:50 25 MG Temazepam 15 mg HSPRN PRN PO 09/19/24 23:45 09/19/24 23:50 15 MG Hydromorphone HCl 2 mg Q4HPRN PRN IV 09/20/24 09:45 09/25/24 03:30 2 MG Oxycodone/ Acetaminophen 2 tab Q4HP PRN PO 09/23/24 15:45 09/24/24 04:07 2 TAB Laboratory Results Laboratory Tests 09/22/24 05:30 Urinalysis Test 09/20/24 00:00 Urine Color Yellow (Yellow) Urine Clarity Clear (Clear) Urine pH 7.5 (5.0-9.0) Urine Specific [place] 1.026 (1.001-1.035) Urine Protein Trace (Negative) H Urine Ketones 1+ (Negative) H Urine Blood Negative /uL (Negative) Urine Nitrite Negative (Negative) Urine Bilirubin Negative (Negative) Urine Urobilinogen Normal mg/dL (Negative) Urine Leukocyte Esterase Negative /uL (Negative) Urine RBC 3 /hpf (0 - 3) Urine Microscopic WBC 1 /HPF (0-3) Urine Squamous Epithelial Cells None seen /hpf (<5) Urine Bacteria None seen /hpf (None Seen) Urine Glucose 4+ mg/dL (Normal) H Labs and/or images reviewed: Labs reviewed by me, Image(s) reviewed by me Assessment/Plan Assessment/Plan Acute right intertrochanteric fracture femur: Status post Open reduction internal fixation of right hip fracture by Dr Chand on 09-22-24, Mechanical fall History of coronary artery disease and [place] status post CABG with multiple stents Acute on chronic congestive heart failure Hypertension Hypercholesterolemia Uncontrolled diabetes: Insulin sliding scale Hypothyroidism Chronic kidney disease History of stomach cancer status post resection History of esophageal cancer status post resection History of AICD 09/04/2023 PE ruled out Flu test negative COVID test negative Orders placed for transfer to [facility] facility for rehab banking services advisor working with the patient's insurance No new complaints Plan discussed with: Patient My Orders Orders - KATY RAMIREZ MD Procedure Category Date Status Time * Senior Product Development Manager CONS 09/24/24 Transmitted Consult Discharge DISCHARGE 09/24/24 Transmitted 10:10 Date of Service: Sep 25, 2024 Billing Provider: KATY RAMIREZ MD Common Visit Codes: [id number] INP/OBS CARE(HIGH) KATY RAMIREZ MD Sep 25, 2024 08:38
[2024-09-26] VITALS (7 sets, daily range): BP systolic 105–138; BP diastolic 47–70; PULSE 64–83; RESP 12–18; TEMP 97.4–98.6; O2SAT 95–99
--- NOTE | 2024-09-26 10:01 | DVHPN2 ---
Reviewed: Care Plan, H&P, Labs, Medications, Previous Orders, Radiology Changes from previous H/P or p: No Changes Eyes: No Pain, No Vision change, No Conjunctivae inflammation, No Eyelid inflammation, No Other, No Redness ENT: No Ear pain, No Ear discharge, No Nose pain, No Nose discharge, No Nose congestion, No Mouth pain, No Mouth swelling, No Throat pain, No Throat swelling, No Other Cardiovascular: No Chest Pain, No Palpitations, No Orthopnea, No Paroxysmal Noc. Dyspnea, No Edema, No Lt Headedness, No Other Respiratory: No Cough, No Dry, No Shortness of breath, No SOB with excertion, No Wheezing, No Hemoptysis, No Pleuritic Pain, No Sputum, No Other Gastrointestinal: No Nausea, No Vomiting, No Abdominal Pain, No Diarrhea, No Constipation, No Melena, No Hematochezia, No Other Genitourinary: No Dysuria, No Frequency, No Incontinence, No Hematuria, No Retention, No Other Musculoskeletal: leg pain (Right hip) Skin: No Rash, No Lesions, No Jaundice, No Bruising, No Other Objective Vitals Vital Signs Date Time Temp Pulse Resp B/P (MAP) Pulse Ox O2 Delivery O2 Flow Rate FiO2 09/26/24 09:04 64 18 132/57 09/26/24 05:00 97.4 99 97.4 09/25/24 20:00 Room Air* 0 21 Intake/Output Intake and Output 09/26/24 07:00 Intake Total 320 ml Output Total 700 ml Balance -380 ml Intake Oral 320 ml Output Urine Total 700 ml Medications Current Medications Medications Dose Ordered Sig/Jessica Route Start Time Stop Time Status Last Admin Dose Admin Ondansetron HCl 4 mg Q4HP PRN IV 09/19/24 22:45 09/26/24 09:03 4 MG Enoxaparin Sodium 40 mg DAILY SC 09/20/24 10:00 09/26/24 09:03 40 MG Nitroglycerin 0.4 mg Q5MINP PRN SL 09/19/24 22:45 Morphine Sulfate 2 mg Q30M PRN IV 09/19/24 22:45 Pantoprazole Sodium 40 mg DAILY IV 09/19/24 22:45 09/26/24 09:03 40 MG Hydralazine HCl 10 mg Q6HP PRN IV 09/19/24 22:45 Diagnostic Test (Pha) 1 strip ACHS 09/20/24 07:00 09/26/24 06:17 1 STRIP Insulin Human Regular ACHS SC 09/20/24 07:00 09/25/24 16:48 2 UNITS Dextrose 50 ml UD PRN IV 09/19/24 22:45 Metoprolol Succinate 25 mg DAILY PO 09/19/24 23:00 09/26/24 09:03 25 MG Temazepam 15 mg HSPRN PRN PO 09/19/24 23:45 09/19/24 23:50 15 MG Hydromorphone HCl 2 mg Q4HPRN PRN IV 09/20/24 09:45 09/26/24 09:04 2 MG Oxycodone/ Acetaminophen 2 tab Q4HP PRN PO 09/23/24 15:45 09/24/24 04:07 2 TAB Laboratory Results Laboratory Tests 09/22/24 05:30 Urinalysis Test 09/20/24 00:00 Urine Color Yellow (Yellow) Urine Clarity Clear (Clear) Urine pH 7.5 (5.0-9.0) Urine Specific [place] 1.026 (1.001-1.035) Urine Protein Trace (Negative) H Urine Ketones 1+ (Negative) H Urine Blood Negative /uL (Negative) Urine Nitrite Negative (Negative) Urine Bilirubin Negative (Negative) Urine Urobilinogen Normal mg/dL (Negative) Urine Leukocyte Esterase Negative /uL (Negative) Urine RBC 3 /hpf (0 - 3) Urine Microscopic WBC 1 /HPF (0-3) Urine Squamous Epithelial Cells None seen /hpf (<5) Urine Bacteria None seen /hpf (None Seen) Urine Glucose 4+ mg/dL (Normal) H Labs and/or images reviewed: Labs reviewed by me, Image(s) reviewed by me Assessment/Plan Assessment/Plan Acute right intertrochanteric fracture femur: Status post Open reduction internal fixation of right hip fracture by Dr Chand on 09-22-24, Mechanical fall History of coronary artery disease and CT status post CABG with multiple stents Acute on chronic congestive heart failure Hypertension Hypercholesterolemia Uncontrolled diabetes: Insulin sliding scale Hypothyroidism Chronic kidney disease History of stomach cancer status post resection History of esophageal cancer status post resection History of AICD 09/04/2023 PE ruled out Flu test negative COVID test negative Orders placed for transfer to longterm facility for rehab Patient is being transferred to [facility] per patient's Chitra wishes No new complaints Plan discussed with: Patient Date of Service: Sep 26, 2024 Billing Provider: KATY RAMIREZ MD Common Visit Codes: [id number] INP/OBS CARE(HIGH) KATY RAMIREZ MD Sep 26, 2024 10:01
[2024-09-27] VITALS (8 sets, daily range): BP systolic 116–149; BP diastolic 54–75; PULSE 50–78; RESP 16–20; TEMP 97.6–98.6; O2SAT 94–99
[2024-09-27] MEDS: FAMOTIDINE (10MG/ML) 2ML VL IV ONE (02:19)
--- NOTE | 2024-09-27 10:25 | DVHPN2 ---
Reviewed: Care Plan, H&P, Labs, Medications, Previous Orders, Radiology Changes from previous H/P or p: No Changes Eyes: No Pain, No Vision change, No Conjunctivae inflammation, No Eyelid inflammation, No Other, No Redness ENT: No Ear pain, No Ear discharge, No Nose pain, No Nose discharge, No Nose congestion, No Mouth pain, No Mouth swelling, No Throat pain, No Throat swelling, No Other Cardiovascular: No Chest Pain, No Palpitations, No Orthopnea, No Paroxysmal Noc. Dyspnea, No Edema, No Lt Headedness, No Other Respiratory: No Cough, No Dry, No Shortness of breath, No SOB with excertion, No Wheezing, No Hemoptysis, No Pleuritic Pain, No Sputum, No Other Gastrointestinal: No Nausea, No Vomiting, No Abdominal Pain, No Diarrhea, No Constipation, No Melena, No Hematochezia, No Other Genitourinary: No Dysuria, No Frequency, No Incontinence, No Hematuria, No Retention, No Other Musculoskeletal: leg pain (Right hip) Skin: No Rash, No Lesions, No Jaundice, No Bruising, No Other Objective Vitals Vital Signs Date Time Temp Pulse Resp B/P (MAP) Pulse Ox O2 Delivery O2 Flow Rate FiO2 09/27/24 09:54 64 116/54 09/27/24 09:53 16 09/27/24 09:01 97.9 99 97.9 09/26/24 20:00 Room Air* 0 21 Intake/Output Intake and Output 09/27/24 07:00 Intake Total 710 ml Output Total 1350 ml Balance -640 ml Intake Oral 710 ml Output Urine Total 1350 ml Medications Current Medications Medications Dose Ordered Sig/Jessica Route Start Time Stop Time Status Last Admin Dose Admin Ondansetron HCl 4 mg Q4HP PRN IV 09/19/24 22:45 09/27/24 09:52 4 MG Enoxaparin Sodium 40 mg DAILY SC 09/20/24 10:00 09/27/24 09:52 40 MG Nitroglycerin 0.4 mg Q5MINP PRN SL 09/19/24 22:45 Morphine Sulfate 2 mg Q30M PRN IV 09/19/24 22:45 Pantoprazole Sodium 40 mg DAILY IV 09/19/24 22:45 09/27/24 09:52 40 MG Hydralazine HCl 10 mg Q6HP PRN IV 09/19/24 22:45 Diagnostic Test (Pha) 1 strip ACHS 09/20/24 07:00 09/27/24 06:17 1 STRIP Insulin Human Regular ACHS SC 09/20/24 07:00 09/27/24 06:17 2 UNITS Dextrose 50 ml UD PRN IV 09/19/24 22:45 Metoprolol Succinate 25 mg DAILY PO 09/19/24 23:00 09/27/24 09:54 25 MG Hydromorphone HCl 2 mg Q4HPRN PRN IV 09/20/24 09:45 09/27/24 09:53 2 MG Oxycodone/ Acetaminophen 2 tab Q4HP PRN PO 09/23/24 15:45 09/24/24 04:07 2 TAB Famotidine 20 mg DAILY IV 09/28/24 10:00 Laboratory Results Laboratory Tests 09/22/24 05:30 Urinalysis Test 09/20/24 00:00 Urine Color Yellow (Yellow) Urine Clarity Clear (Clear) Urine pH 7.5 (5.0-9.0) Urine Specific [place] 1.026 (1.001-1.035) Urine Protein Trace (Negative) H Urine Ketones 1+ (Negative) H Urine Blood Negative /uL (Negative) Urine Nitrite Negative (Negative) Urine Bilirubin Negative (Negative) Urine Urobilinogen Normal mg/dL (Negative) Urine Leukocyte Esterase Negative /uL (Negative) Urine RBC 3 /hpf (0 - 3) Urine Microscopic WBC 1 /HPF (0-3) Urine Squamous Epithelial Cells None seen /hpf (<5) Urine Bacteria None seen /hpf (None Seen) Urine Glucose 4+ mg/dL (Normal) H Assessment/Plan Assessment/Plan Acute right intertrochanteric fracture femur: Status post Open reduction internal fixation of right hip fracture by Dr Chand on 09-22-24, Mechanical fall History of coronary artery disease and [place] status post CABG with multiple stents Acute on chronic congestive heart failure Hypertension Hypercholesterolemia Uncontrolled diabetes: Insulin sliding scale Hypothyroidism Chronic kidney disease History of stomach cancer status post resection History of esophageal cancer status post resection History of AICD 09/04/2023 PE ruled out Flu test negative COVID test negative Orders placed for transfer to senior care facility for rehab Patient is being transferred to [facility] per patient's Chitra wishes No new complaints today Physical therapy ordered Plan discussed with: Patient My Orders Orders - KATY RAMIREZ MD Procedure Category Date Status Time Soft Diet DIET 09/26/24 Transmitted Dinner Date of Service: Sep 27, 2024 Billing Provider: KATY RAMIREZ MD Common Visit Codes: [id number] INP/OBS CARE(HIGH) KATY RAMIREZ MD Sep 27, 2024 10:25
[2024-09-27] MEDS: FAMOTIDINE (10MG/ML) 2ML VL IV SCH (21:28)
[2024-09-28] VITALS (8 sets, daily range): BP systolic 121–135; BP diastolic 50–64; PULSE 62–79; RESP 15–20; TEMP 97.8–98.9; O2SAT 94–99
--- NOTE | 2024-09-28 09:40 | DVHPN2 ---
Reviewed: Care Plan, H&P, Labs, Medications, Previous Orders, Radiology Changes from previous H/P or p: No Changes Eyes: No Pain, No Vision change, No Conjunctivae inflammation, No Eyelid inflammation, No Other, No Redness ENT: No Ear pain, No Ear discharge, No Nose pain, No Nose discharge, No Nose congestion, No Mouth pain, No Mouth swelling, No Throat pain, No Throat swelling, No Other Cardiovascular: No Chest Pain, No Palpitations, No Orthopnea, No Paroxysmal Noc. Dyspnea, No Edema, No Lt Headedness, No Other Respiratory: No Cough, No Dry, No Shortness of breath, No SOB with excertion, No Wheezing, No Hemoptysis, No Pleuritic Pain, No Sputum, No Other Gastrointestinal: No Nausea, No Vomiting, No Abdominal Pain, No Diarrhea, No Constipation, No Melena, No Hematochezia, No Other Genitourinary: No Dysuria, No Frequency, No Incontinence, No Hematuria, No Retention, No Other Musculoskeletal: leg pain (Right hip) Skin: No Rash, No Lesions, No Jaundice, No Bruising, No Other Objective Vitals Vital Signs Date Time Temp Pulse Resp B/P (MAP) Pulse Ox O2 Delivery O2 Flow Rate FiO2 09/28/24 09:00 93 17 130/40 09/28/24 08:37 97.9 97 97.9 09/27/24 20:00 Room Air* 0 21 Intake/Output Intake and Output 09/28/24 07:00 Intake Total 1350 ml Output Total 1550 ml Balance -200 ml Intake Oral 1350 ml Output Urine Total 1550 ml Medications Current Medications Medications Dose Ordered Sig/Jessica Route Start Time Stop Time Status Last Admin Dose Admin Ondansetron HCl 4 mg Q4HP PRN IV 09/19/24 22:45 09/28/24 08:58 4 MG Enoxaparin Sodium 40 mg DAILY SC 09/20/24 10:00 09/28/24 08:58 40 MG Nitroglycerin 0.4 mg Q5MINP PRN SL 09/19/24 22:45 Morphine Sulfate 2 mg Q30M PRN IV 09/19/24 22:45 Hydralazine HCl 10 mg Q6HP PRN IV 09/19/24 22:45 Diagnostic Test (Pha) 1 strip ACHS 09/20/24 07:00 09/28/24 06:44 1 STRIP Insulin Human Regular ACHS SC 09/20/24 07:00 09/28/24 06:44 4 UNITS Dextrose 50 ml UD PRN IV 09/19/24 22:45 Metoprolol Succinate 25 mg DAILY PO 09/19/24 23:00 09/28/24 09:00 25 MG Hydromorphone HCl 2 mg Q4HPRN PRN IV 09/20/24 09:45 09/28/24 09:00 2 MG Oxycodone/ Acetaminophen 2 tab Q4HP PRN PO 09/23/24 15:45 09/24/24 04:07 2 TAB Famotidine 20 mg DAILY IV 09/27/24 22:00 09/28/24 08:58 20 MG Laboratory Results Laboratory Tests 09/22/24 05:30 Urinalysis Test 09/20/24 00:00 Urine Color Yellow (Yellow) Urine Clarity Clear (Clear) Urine pH 7.5 (5.0-9.0) Urine Specific [place] 1.026 (1.001-1.035) Urine Protein Trace (Negative) H Urine Ketones 1+ (Negative) H Urine Blood Negative /uL (Negative) Urine Nitrite Negative (Negative) Urine Bilirubin Negative (Negative) Urine Urobilinogen Normal mg/dL (Negative) Urine Leukocyte Esterase Negative /uL (Negative) Urine RBC 3 /hpf (0 - 3) Urine Microscopic WBC 1 /HPF (0-3) Urine Squamous Epithelial Cells None seen /hpf (<5) Urine Bacteria None seen /hpf (None Seen) Urine Glucose 4+ mg/dL (Normal) H Labs and/or images reviewed: Labs reviewed by me, Image(s) reviewed by me Assessment/Plan Assessment/Plan Acute right intertrochanteric fracture femur: Status post Open reduction internal fixation of right hip fracture by Dr Chand on 09-22-24, Mechanical fall History of coronary artery disease and IN status post CABG with multiple stents Acute on chronic congestive heart failure Hypertension Hypercholesterolemia Uncontrolled diabetes: Insulin sliding scale Hypothyroidism Chronic kidney disease History of stomach cancer status post resection History of esophageal cancer status post resection History of AICD 09/04/2023 PE ruled out Flu test negative COVID test negative Orders placed for transfer to alf facility for rehab vp marketing services and skin working on transfer Patient never received chemotherapy and not on chemotherapy Plan discussed with: Patient Date of Service: Sep 28, 2024 Billing Provider: KATY RAMIREZ MD Common Visit Codes: [id number] INP/OBS CARE(HIGH) KATY RAMIREZ MD Sep 28, 2024 09:40
[2024-09-28] MEDS ORDERED: FAMOTIDINE (10MG/ML) 2ML VL IV SCH (10:00)
[2024-09-28] MEDS ORDERED: DOCUSATE CALCIUM 240 MG CAP PO PRN (11:30)
[2024-09-28] MEDS ORDERED: FUROSEMIDE 20 MG TAB PO SCH (14:00)
[2024-09-28] MEDS: POTASSIUM CHL 10 Meq TABLET PO SCH (14:00)
[2024-09-28] MEDS: FUROSEMIDE 40 MG TAB PO SCH (14:43)
[2024-09-28] MEDS: FAMOTIDINE (10MG/ML) 2ML VL IV SCH (21:57)
[2024-09-29] VITALS (7 sets, daily range): BP systolic 107–130; BP diastolic 44–63; PULSE 59–83; RESP 15–18; TEMP 97.2–98.2; O2SAT 96–99
--- NOTE | 2024-09-29 09:45 | DVHPN2 ---
Reviewed: Care Plan, H&P, Labs, Medications, Previous Orders, Radiology Changes from previous H/P or p: No Changes Eyes: No Pain, No Vision change, No Conjunctivae inflammation, No Eyelid inflammation, No Other, No Redness ENT: No Ear pain, No Ear discharge, No Nose pain, No Nose discharge, No Nose congestion, No Mouth pain, No Mouth swelling, No Throat pain, No Throat swelling, No Other Cardiovascular: No Chest Pain, No Palpitations, No Orthopnea, No Paroxysmal Noc. Dyspnea, No Edema, No Lt Headedness, No Other Respiratory: No Cough, No Dry, No Shortness of breath, No SOB with excertion, No Wheezing, No Hemoptysis, No Pleuritic Pain, No Sputum, No Other Gastrointestinal: No Nausea, No Vomiting, No Abdominal Pain, No Diarrhea, No Constipation, No Melena, No Hematochezia, No Other Genitourinary: No Dysuria, No Frequency, No Incontinence, No Hematuria, No Retention, No Other Musculoskeletal: leg pain (Right hip) Skin: No Rash, No Lesions, No Jaundice, No Bruising, No Other Objective Vitals Vital Signs Date Time Temp Pulse Resp B/P (MAP) Pulse Ox O2 Delivery O2 Flow Rate FiO2 09/29/24 09:19 68 17 116/53 09/29/24 05:00 97.6 97 97.6 09/28/24 20:00 Room Air* 0 21 Intake/Output Intake and Output 09/29/24 07:00 Intake Total 900 ml Output Total 1700 ml Balance -800 ml Intake Oral 900 ml Output Urine Total 1700 ml Medications Current Medications Medications Dose Ordered Sig/Jessica Route Start Time Stop Time Status Last Admin Dose Admin Ondansetron HCl 4 mg Q4HP PRN IV 09/19/24 22:45 09/29/24 09:17 4 MG Enoxaparin Sodium 40 mg DAILY SC 09/20/24 10:00 09/29/24 09:18 40 MG Nitroglycerin 0.4 mg Q5MINP PRN SL 09/19/24 22:45 Hydralazine HCl 10 mg Q6HP PRN IV 09/19/24 22:45 Diagnostic Test (Pha) 1 strip ACHS 09/20/24 07:00 09/29/24 06:34 1 STRIP Insulin Human Regular ACHS SC 09/20/24 07:00 09/29/24 06:35 2 UNITS Dextrose 50 ml UD PRN IV 09/19/24 22:45 Metoprolol Succinate 25 mg DAILY PO 09/19/24 23:00 09/29/24 09:17 25 MG Hydromorphone HCl 2 mg Q4HPRN PRN IV 09/20/24 09:45 09/29/24 09:19 2 MG Oxycodone/ Acetaminophen 2 tab Q4HP PRN PO 09/23/24 15:45 09/29/24 06:42 2 TAB Docusate Calcium 100 mg DAILYPRN PRN PO 09/28/24 11:30 Potassium Chloride 10 meq DAILY PO 09/28/24 14:00 Furosemide 40 mg DAILY PO 09/28/24 14:30 09/29/24 09:17 40 MG Famotidine 20 mg DAILY IV 09/28/24 20:45 09/29/24 09:17 20 MG Laboratory Results Laboratory Tests 09/22/24 05:30 Urinalysis Test 09/20/24 00:00 Urine Color Yellow (Yellow) Urine Clarity Clear (Clear) Urine pH 7.5 (5.0-9.0) Urine Specific [place] 1.026 (1.001-1.035) Urine Protein Trace (Negative) H Urine Ketones 1+ (Negative) H Urine Blood Negative /uL (Negative) Urine Nitrite Negative (Negative) Urine Bilirubin Negative (Negative) Urine Urobilinogen Normal mg/dL (Negative) Urine Leukocyte Esterase Negative /uL (Negative) Urine RBC 3 /hpf (0 - 3) Urine Microscopic WBC 1 /HPF (0-3) Urine Squamous Epithelial Cells None seen /hpf (<5) Urine Bacteria None seen /hpf (None Seen) Urine Glucose 4+ mg/dL (Normal) H Labs and/or images reviewed: Labs reviewed by me, Image(s) reviewed by me Assessment/Plan Assessment/Plan Acute right intertrochanteric fracture femur: Status post Open reduction internal fixation of right hip fracture by Dr Chand on 09-22-24, Mechanical fall History of coronary artery disease and [place] status post CABG with multiple stents Acute on chronic congestive heart failure Hypertension Hypercholesterolemia Uncontrolled diabetes: Insulin sliding scale Hypothyroidism Chronic kidney disease History of stomach cancer status post resection History of esophageal cancer status post resection History of AICD 09/04/2023 PE ruled out Flu test negative COVID test negative [facility], awaiting bed availability customer services manager working on transfer Patient never received chemotherapy and not on chemotherapy Plan discussed with: Patient My Orders Orders - KATY RAMIREZ MD Procedure Category Date Status Time Potassium Er Tablet PHA 09/28/24 In Process (Klor-Con Tablet) 14:00 Furosemide Tablet PHA 09/28/24 In Process (Lasix Tablet) 14:30 Date of Service: Sep 29, 2024 Billing Provider: KATY RAMIREZ MD Common Visit Codes: [id number] INP/OBS CARE(HIGH) KATY RAMIREZ MD Sep 29, 2024 09:45
== END 2024-09-29 21:08 | DRG 480 ==
LOC: EDBD 19:12 → ER 19:12 → OVERFLOW 22:32 → CENTRAL 22:37 → TELE-CENTR 09-22 22:23
PROVIDERS: ADMIT Family Medicine; ATTEND Family Medicine
PROC: 3E0T3BZ Introduction of Anesthetic Agent into Peripheral Nerves and Plexi, Percutaneous Approach (ICD-10-PCS; 2024-09-22)
PROC: 0QS604Z Reposition Right Upper Femur with Internal Fixation Device, Open Approach (ICD-10-PCS; principal; 2024-09-22 09:25)
DX: S72.144A Nondisplaced intertrochanteric fracture of right femur, initial encounter for closed fracture (principal); I50.43 Acute on chronic combined systolic (congestive) and diastolic (congestive) heart failure; I13.0 Hypertensive heart and chronic kidney disease with heart failure and stage 1 through stage 4 chronic kidney disease, or unspecified chronic kidney disease; I42.9 Cardiomyopathy, unspecified; N17.9 Acute kidney failure, unspecified; E03.9 Hypothyroidism, unspecified; I16.0 Hypertensive urgency; E78.00 Pure hypercholesterolemia, unspecified; I27.20 Pulmonary hypertension, unspecified; I25.10 Atherosclerotic heart disease of native coronary artery without angina pectoris; E11.22 Type 2 diabetes mellitus with diabetic chronic kidney disease; K21.9 Gastro-esophageal reflux disease without esophagitis; M10.9 Gout, unspecified; N18.9 Chronic kidney disease, unspecified; Z20.822 Contact with and (suspected) exposure to COVID-19; W01.0XXA Fall on same level from slipping, tripping and stumbling without subsequent striking against object, initial encounter; Z79.84 Long term (current) use of oral hypoglycemic drugs; Z88.5 Allergy status to narcotic agent; Z79.2 Long term (current) use of antibiotics; Z79.899 Other long term (current) drug therapy; Z79.82 Long term (current) use of aspirin; Z87.891 Personal history of nicotine dependence; Z95.1 Presence of aortocoronary bypass graft; Z85.028 Personal history of other malignant neoplasm of stomach; Z82.49 Family history of ischemic heart disease and other diseases of the circulatory system; Z85.01 Personal history of malignant neoplasm of esophagus; Z95.810 Presence of automatic (implantable) cardiac defibrillator; Z90.3 Acquired absence of stomach [part of]; Z83.3 Family history of diabetes mellitus; Y93.89 Activity, other specified; Y92.89 Other specified places as the place of occurrence of the external cause; Y99.8 Other external cause status; I25.2 Old myocardial infarction
CPT/HCPCS: 36415; 71045; 71275; 73502; 76000; 80048; 80307; 80320; 81001; 82962; 83735; 83880; 84439; 84443; 84484; 85025; 85610; 85730; 86803; 86850; 86900; 86901; 87340; 87426; 87804; 93005; 93306; 96374; 96375; 97110; 97116; 97162; 97530; C1713; G0378; J0171; J0690; J1815; J2250; J2405; J2470; J3490

== ENCOUNTER 2025-02-14 19:43 | Inpatient (IN) | payer OTHER ==
[~2025-02-14] VITALS: Ht 170.2 cm; Wt 61.8 kg
[~2025-02-14 19:43] MED LIST changes: -AUG875T PO; -AZITTAB PO; +HYDR-4902 PO; +RIVA10TA PO
--- NOTE | 2025-02-14 20:32 | ED.PDOC ---
History of Present Illness HPI Comments 75 year old male came to ER due to dizziness. Patient has history of hypertension, Afib, gastic cancer, CHF, status post pacemaker, cardiac stents, CABG. Patient routinely takes his vital signs twice daily. Noted that he was hypotensive and bradycardic at 30-40's bpm. States he felt dizzy earlier when he bent over. He felt his heart fluttering with left arm pain. Denies any acute chest pains or shortness of breath. Upon arrival, blood pressure was 99/48 mmHg with a heart rate of 33 bpm Chief Complaint: Dizziness Time Seen by MD: 20:31 Primary Care Provider: LORETTA Reviewed Notes: Nurses Notes Allergies: Coded Allergies: Morphine (Verified Allergy, Unknown, 03/08/22) Home Meds Active Scripts Rivaroxaban (XARELTO) 10 Mg Tab, 1 TAB PO DAILY, #14 TAB Prov:KATY RAMIREZ MD 09/23/24 Hydrocodone-Acetaminophen (Hydrocodone Bitartrate/AC 5-325 mg) 1 Tab Tab, 1 TAB PO QID PRN, #30 TAB Prov:KATY RAMIREZ MD 09/23/24 Albuterol Sulfate (Proair Digihaler) 108 Mcg/Act Aer, 1-2 PUFF IN Q6HP PRN, #1 AER Prov:AYO HIDALGO MD 12/19/23 Empagliflozin (Jardiance) 10 Mg Tab, 10 MG PO DAILY for 30 Days, #30 TAB 2 Refills Prov:MIHIR ANN RESIDENT 11/16/23 Reported Medications Glimepiride (Glimepiride) 1 Mg Tab, 1 MG PO for 30 Days, MG 11/30/23 Nitroglycerin (NTROSTAT SUBLINGUAL) 0.4 Mg Sl, 0.4 MG SL PRN, TAB *MAY REPEAT EVERY 5 MINUTES X 3 TOTAL IF NO RELIEF, INITIATE ANALGESIC THERAPY. NOTIFY PHYSICIAN *Do not crush. 08/21/23 Omeprazole (Gnp Omeprazole) 20 Mg Tab, 1 TAB PO DAILY, #90 TAB 1 Refill 08/21/23 Furosemide (Furosemide) 40 Mg Tab, 1 TAB PO DAILY 08/21/23 Allopurinol (Allopurinol) 300 Mg Tab, 300 MG PO MWF, TAB 08/20/23 Aspirin (Aspirin) 81 Mg Chw, 81 MG PO DAILY, TAB.CHEW 1/15/24 Lovastatin (Lovastatin) 40 Mg Tab, 1 TAB PO 08/20/23 Metoprolol Succinate (Metoprolol Succinate Er) 25 Mg Tab, 1 TAB PO DAILY 08/20/23 Information Source: Patient Mode of Arrival: Ambulatory Severity: Moderate Timing: Hours Duration: Since onset Review of Systems REVIEW OF SYSTEMS: General: No fever, no chills, or fatigue HEENT: No sore throat, no earache, no congestion, no neck pain. Cardiac: No chest pain. No palpitations. Lungs: No shortness of breath, no cough. GI: No nausea, no vomiting, no diarrhea, no constipation, no abdominal pain : No dysuria, frequency, or urgency. No hematuria. Musculoskeletal: No joint pain , no joint swelling, no extremity edema. Skin: No rash, no itching. Neuro: No headache, (+) dizziness, no weakness Vital Signs Vital Signs Date Time Temp Pulse Resp B/P (MAP) Pulse Ox O2 Delivery O2 Flow Rate FiO2 02/14/25 22:00 61 16 145/47 (79) 98 02/14/25 21:46 Room Air* 0 21 02/14/25 21:45 97.9 97.9 Physical Exam PHYSICAL EXAM: General: Awake, alert and oriented. No acute distress. Skin: Skin in warm, dry and intact. Appropriate color for ethnicity. HEENT: The head is normocephalic and atraumatic. Conjunctivae are clear without exudates or hemorrhage. Sclera is non-icteric. EOM are intact. No signs of nystagmus. Eyelids are normal in appearance without swelling or lesions. Oral mucosa is pink and moist Neck: The neck is supple with normal range of motion. No JVD. Cardiac: Bradycardic raten regular rhythm. No murmurs, gallops, or rubs are auscultated. Respiratory: No signs of respiratory distress. Lung sounds are clear in all lobes bilaterally without rales, rhonchi, or wheezes. Abdominal: Abdomen is soft, non-tender without distention, guarding or rigidity. Bowel sounds are present and normoactive in all four quadrants. Extremities: Upper and lower extremities are atraumatic in appearance without deformity or edema. Neurological: The patient is awake, alert and oriented to person, place, and time with normal speech. Speech is clear. There is no facial asymmetry. Normal gait Psychiatric: Appropriate mood and affect. Good judgement and insight. Past Medical History PAST MEDICAL HISTORY: AFIB, Cancer (gastric), CHF, DM, GERD, High Lipids, HTN, Thyroid Surgical History: Appendectomy, CABG, Hernia Repair, Pacemaker, PTCA Family History Family History: Family hx of Cancer Social History Smoker: Quit Greater Than 1 Year Alcohol: Occasionally Drugs: Denies Drug Use Lives In: Home Was a procedure done? Was a procedure done?: No EKG EKG : Comments No STEMI Differential Dx Considerations may include: anemia, electrolyte imbalance, symptomatic bradycardia, dehydration, pacemaker malfunction, other X-Ray, Labs, Meds, VS Vital Signs Date Time Temp Pulse Resp B/P (MAP) Pulse Ox O2 Delivery O2 Flow Rate FiO2 02/14/25 22:00 61 16 145/47 (79) 98 02/14/25 21:46 62 13 98 Room Air* 0 21 02/14/25 21:45 97.9 62 13 143/62 (89) 98 97.9 02/14/25 19:56 97.9 100 18 99/48 (65) 100 97.9 02/14/25 19:56 33 Lab Test 02/14/25 20:57 Range/Units White Blood Count 6.4 4.4-10.8 10^3/uL Red Blood Count 4.67 4.5-5.90 10^6/uL Hemoglobin 14.3 13.5-17.5 g/dL Hematocrit 42.9 41.0-53.0 % Mean Corpuscular Volume 91.8 80.0-100.0 fL Mean Corpuscular Hemoglobin 30.7 28.0-32.0 pg Mean Corpuscular Hemoglobin Concent 33.4 32.0-36.0 g/dL Red Cell Distribution Width 13.7 11.8-14.3 % Platelet Count 177 140-450 10^3/uL Mean Platelet Volume 10.1 6.9-10.8 fL Neutrophils (%) (Auto) 49.0 37.0-80.0 % Lymphocytes (%) (Auto) 34.2 10.0-50.0 % Monocytes (%) (Auto) 14.7 H 0.0-12.0 % Eosinophils (%) (Auto) 1.5 0.0-7.0 % Basophils (%) (Auto) 0.6 0.0-2.0 % Neutrophils # (Auto) 3.1 1.6-8.6 10 ^3/uL Lymphocytes # (Auto) 2.2 0.4-5.4 10 ^3/uL Monocytes # (Auto) 0.9 0-1.3 10 ^3/uL Eosinophils # (Auto) 0.1 0-0.8 10 ^3/uL Basophils # (Auto) 0 0-0.2 10 ^3/uL Nucleated Red Blood Cells 0.0 % Sodium Level 142 136-145 mmol/L Potassium Level 4.1 3.5-5.1 mmol/L Chloride Level 105 98-107 mmol/L Carbon Dioxide Level 27 20-31 mmol/L Anion Gap 10 5-15 Blood Urea Nitrogen 28 H 9-23 mg/dL Creatinine 1.78 H 0.700-1.30 mg/dL Glomerular Filtration Rate Calc 39 >90 mL/min BUN/Creatinine Ratio 15.7 10.0-20.0 Serum Glucose 114 H 74-106 mg/dL Hemoglobin A1c 7.7 H <5.7 % A1C Calcium Level 9.6 8.7-10.4 mg/dL Troponin I High Sensitivity 31 </=54 ng/L B-Type Natriuretic Peptide 726.96 0-100 pg/mL Thyroid Stimulating Hormone (TSH) 4.50 0.55-4.78 uIU/mL Current Medications Medications (Trade) Dose Ordered Sig/Jessica Route Start Time Stop Time Status Last Admin Sodium Chloride 1,000 ml @ 130 mls/hr Q7H42M ONCE IV 02/14/25 20:30 02/15/25 02:22 DC 02/14/25 20:48 Time of 1ST Reevaluation: 20:23 Reevaluation 1ST: Unchanged Patient Education/Counseling: Prognosis, Need For Follow Up Family Education/Counseling: Prognosis, Need For Follow Up SEPSIS Sepsis Screen Date sepsis recognized/suspect: Feb 14, 2025 Time Sepsis recognized/suspect: 1944 Recent Procedure: No On Antibiotic Therapy: No Respiratory Rate >20: No Heart Rate >90: No Temp<36 C (96.8 F) or >38.3 C: No SBP <90 or MAP <65 mmHG: No New Acute Mental Status Change: No Is the patient on CPAP, BIPAP,: No Physician Orders Assess Pacemaker Function (02/14/25 20:25) Chest Xray 1 View (02/14/25 20:25) Titrate Oxygen (02/14/25 20:25) Oxygen (02/14/25 ) Continous Pulse Oximetry (02/14/25 20:25) Saline Lock (02/14/25 20:25) Manager Banking (02/14/25 ) Notify Md If Abnormal Vs (02/14/25 20:25) Vital Signs Date Time Temp Pulse Resp B/P (MAP) Pulse Ox O2 Delivery O2 Flow Rate FiO2 02/14/25 22:00 61 16 145/47 (79) 98 02/14/25 21:46 62 13 98 Room Air* 0 21 02/14/25 21:45 97.9 62 13 143/62 (89) 98 97.9 02/14/25 19:56 97.9 100 18 99/48 (65) 100 97.9 02/14/25 19:56 33 Laboratory Tests Test 02/14/25 20:57 White Blood Count 6.4 10^3/uL (4.4-10.8) Medications Medications Dose Ordered Sig/Jessica Route Start Time Stop Time Status Last Admin Dose Admin Sodium Chloride 1,000 ml @ 130 mls/hr Q7H42M ONCE IV 02/14/25 20:30 02/15/25 02:22 DC 02/14/25 20:48 Departure 1 Departure Time of Disposition: 21:27 Impression: Primary Impression: Bradycardia Disposition: ADMITTED INPATIENT Condition: Stable Comments Patient admitted to hospitalist service for further treatment, evaluation and monitoring. Extensive evaluation was performed in attempt to identify or rule out: (See differential diagnosis section) The following tests were ordered, and results were reviewed by me and discussed with patient: (See diagnostic results section) The following test were independently interpreted by me: EKG I reviewed and agreed with the following test results read by other providers: Chest x-ray I reviewed the following notes from the pt's past medical encounters: N/A Additional information was gathered from interviewing the following independent historians: Patient's at bedside Discussion of management or test interpretation with external physician/other qualified health vocational childcare teacher: N/A Addressed an acute or chronic illness that poses a threat to life or bodily function: Bradycardia Decision regarding hospitalization or escalation of hospital level of care: Risk and benefits of admission for further treatment of patient's condition was considered. Due to patient's current clinical condition, high risk of decline and poor outcome if discharged and need for further inpatient management and monitoring, patient will be admitted to the hospital. Discussed with patient. Drug therapy requiring intensive monitoring for toxicity: N/A Parenteral controlled substances: N/A Decision regarding elective major surgery with identified patient or procedure risk factors: N/A Decision regarding emergency major surgery: N/A Decision not to resuscitate or to de-escalate care because of poor prognosis: N/A Diagnosis or treatment significantly limited by social determinants of health: N/A Critical Care Note Critical Care Time?: No Stability Stability form required: No Heart Score Heart Score: Heart Score Response (Comments) Value History Moderate Suspicious 1 EKG Repolarization Disturb 1 Age >65 2 Risk Factors >3 or Hx ASHD 2 Troponin Normal limit 0 Total 6 I personally scribed for CECY PIPER MD ([facility]) on 02/14/25 at 20:31. Electronically submitted by Vincent Godoy ([employer]). I personally scribed for CECY PIPER MD ([facility]) on 02/14/25 at 23:35. Electronically submitted by Vincent Godoy ([employer]). CECY PIPER MD Feb 14, 2025 20:31
[2025-02-14] MEDS: SODIUM CHLORIDE 0.9% 1,000 ML IV ONE (20:48)
[2025-02-14 21:09] LABS: Hematocrit 42.9 % (41.0-53.0); Hemoglobin 14.3 g/dL (13.5-17.5); Mean Corpuscular Hemoglobin 30.7 pg (28.0-32.0); Mean Corpuscular Volume 91.8 fL (80.0-100.0); Nucleated Red Blood Cells % 0.0 %
[2025-02-14 21:19] LABS: Anion Gap 10 (5-15); Carbon Dioxide 27 mmol/L (20-31); Chloride 105 mmol/L (98-107); Potassium 4.1 mmol/L (3.5-5.1); Sodium 142 mmol/L (136-145)
[2025-02-14 21:20] LABS: Calcium 9.6 mg/dL (8.7-10.4)
[2025-02-14 21:25] LABS: BUN/Creatinine Ratio 15.7 (10.0-20.0); Blood Urea Nitrogen 28 mg/dL (9-23); Glucose 114 mg/dL (74-106)
[2025-02-14 21:46] VITALS: PULSE 62; RESP 13; O2SAT 98
--- NOTE | 2025-02-14 21:49 | DVH ---
CHEST RADIOGRAPH Indication: Dizziness, bradycardia Technique: Single frontal view of the chest was obtained Comparison: XY CHEST XRAY 1 VIEW on DOS: 09/19/24, XY CHEST PORTABLE on DOS: 12/18/23, XY CHEST XRAY 1 VIEW on DOS: 11/30/23 FINDINGS: Lines and Tubes: None. Left subclavian approach single lead AICD terminating within the right ventri hermilo. Lungs: No focal consolidation. Diffuse interstitial prominence. Pleura: No effusion. No pneumothorax. Cardiomediastinal contours: Mild cardiomegaly with [id number] atherosclerotic calcification and uncoiling of the aorta. Midline sternotomy wires are noted with fracture of the superior wires. Bones: No acute osseous abnormality. IMPRESSION: Cardiomegaly with pulmonary vascular congestion.
[2025-02-14] MEDS ORDERED: MORPHINE SULFATE INJ 2 MG/ml SYRG IV PRN (23:00)
[2025-02-14] MEDS ORDERED: NITROGLYCERIN 0.4 MG SL TAB SL PRN (23:00)
--- NOTE | 2025-02-14 23:02 | DVHHPRES ---
History of Present Illness Resident Creating Document: ARRON GEORGES RESIDENT History of Present Illness This is a 75-year-old male with past medical history of hypertension, CAD, status post CABG, status post PTCA X 11, type 2 diabetes mellitus, gastric cancer, and status post gastric surgery, status post AICD, CKD presented to the ED with a chief complaint of dizziness since morning prior to this admission. The patient stated that he normally checked his vital sign 2 times a day. Noted that he was hypotensive and bradycardic at 30-40's bpm. States he felt dizzy earlier when he bent over. He felt his heart fluttering with left arm pain. Upon arrival, blood pressure was 99/48 mmHg with a heart rate of 33 bpm. He denies fever, chest pain, shortness of breath, palpitation, diaphoresis, blurred vision, abdominal pain, nausea, vomiting, or any change in bowel and bladder habit. PCP: Lonny Petit Heavy Lift Rigger: MD Izabella Aranda MD Past Medical History Hypertension, CAD, type 2 diabetes mellitus, gastric cancer, CKD Past Surgical History S/P CABG, PTCAX11, status post gastric surgery, status post AICD Family History CHF, ischemic heart disease runs in family Past Social History Lives with family Nonsmoker, nonalcoholic and never tried any drugs Review of Systems Constitutional: No: Fever, Chills, Sweats, Weakness, Malaise, Other Eyes: No: Pain, Vision change, Conjunctivae inflammation, Eyelid inflammation, Other, Redness ENT: No: Ear pain, Ear discharge, Nose pain, Nose discharge, Nose congestion, Mouth pain, Mouth swelling, Throat pain, Throat swelling, Other Respiratory: No: Cough, Dry, Shortness of breath, SOB with excertion, Wheezing, Hemoptysis, Pleuritic Pain, Sputum, Wheezing, Other Cardiovascular: Lt Headedness; No: Chest Pain, Palpitations, Orthopnea, Paroxysmal Noc. Dyspnea, Edema, Other Gastrointestinal: No: Nausea, Vomiting, Abdominal Pain, Diarrhea, Constipation, Melena, Hematochezia, Other Genitourinary: No Dysuria, No Frequency, No Incontinence, No Hematuria, No Retention, No Other Musculoskeletal: No: other, neck pain, shoulder pain, arm pain, back pain, hand pain, leg pain, foot pain Skin: No: Rash, Lesions, Jaundice, Bruising, Other Neurological: No: Weakness, Numbness, Incoordination, Change in speech, Confusion, Seizures, Other Allergies: Coded Allergies: Morphine (Verified Allergy, Unknown, 03/08/22) Medications Current Medications Medications Dose Ordered Sig/Jessica Route Start Time Stop Time Status Last Admin Dose Admin Nitroglycerin 0.4 mg Q5MINP PRN SL 02/14/25 23:00 Morphine Sulfate 2 mg Q30M PRN IV 02/14/25 23:00 UNV Empaglifozin 10 mg DAILY PO 02/15/25 10:00 UNV Furosemide 40 mg DAILY PO 02/15/25 10:00 UNV Patient Own Medication 300 mg MWF PO 02/16/25 10:00 UNV Patient Own Medication 81 mg DAILY PO 02/15/25 10:00 UNV Atorvastatin Calcium 40 mg HS PO 02/15/25 22:00 UNV Exam Vital Signs Vital Signs Date Time Temp Pulse Resp B/P (MAP) Pulse Ox O2 Delivery O2 Flow Rate FiO2 02/14/25 22:00 61 16 145/47 (79) 98 02/14/25 21:46 Room Air* 0 21 02/14/25 21:45 97.9 97.9 Exam Physical examination: General Appearance: Alert, Oriented X3, Cooperative, No acute distress HEENT: Atraumatic, PERRLA, EOMI, Mucous membrane moist/pink Respiratory: Clear to auscultation, Normal air movement Cardiovascular: Regular rate, Normal S1, Normal S2, No murmurs, no chest wall tenderness Abdominal: Normal bowel sounds, Soft, No tenderness, No hepatospenomegaly, No masses Extremities: No clubbing, No cyanosis, No edema, Normal pulses, No tenderness/swelling Skin: No rashes, No breakdown, No significant lesion Neuro: Normal speech, Strength at 5/5 X4 ext, Normal tone, Sensation intact, Cranial nerves 3-12 NL, Reflexes 2+ Psych/Mental Status: Mental status NL, Mood NL Labs/Xrays Labs Test 02/14/25 20:57 Range/Units White Blood Count 6.4 4.4-10.8 10^3/uL Red Blood Count 4.67 4.5-5.90 10^6/uL Hemoglobin 14.3 13.5-17.5 g/dL Hematocrit 42.9 41.0-53.0 % Mean Corpuscular Volume 91.8 80.0-100.0 fL Mean Corpuscular Hemoglobin 30.7 28.0-32.0 pg Mean Corpuscular Hemoglobin Concent 33.4 32.0-36.0 g/dL Red Cell Distribution Width 13.7 11.8-14.3 % Platelet Count 177 140-450 10^3/uL Mean Platelet Volume 10.1 6.9-10.8 fL Neutrophils (%) (Auto) 49.0 37.0-80.0 % Lymphocytes (%) (Auto) 34.2 10.0-50.0 % Monocytes (%) (Auto) 14.7 H 0.0-12.0 % Eosinophils (%) (Auto) 1.5 0.0-7.0 % Basophils (%) (Auto) 0.6 0.0-2.0 % Neutrophils # (Auto) 3.1 1.6-8.6 10 ^3/uL Lymphocytes # (Auto) 2.2 0.4-5.4 10 ^3/uL Monocytes # (Auto) 0.9 0-1.3 10 ^3/uL Eosinophils # (Auto) 0.1 0-0.8 10 ^3/uL Basophils # (Auto) 0 0-0.2 10 ^3/uL Nucleated Red Blood Cells 0.0 % Sodium Level 142 136-145 mmol/L Potassium Level 4.1 3.5-5.1 mmol/L Chloride Level 105 98-107 mmol/L Carbon Dioxide Level 27 20-31 mmol/L Anion Gap 10 5-15 Blood Urea Nitrogen 28 H 9-23 mg/dL Creatinine 1.78 H 0.700-1.30 mg/dL Glomerular Filtration Rate Calc 39 >90 mL/min BUN/Creatinine Ratio 15.7 10.0-20.0 Serum Glucose 114 H 74-106 mg/dL Calcium Level 9.6 8.7-10.4 mg/dL Troponin I High Sensitivity 31 </=54 ng/L B-Type Natriuretic Peptide 726.96 0-100 pg/mL Thyroid Stimulating Hormone (TSH) 4.50 0.55-4.78 uIU/mL SEPSIS Sepsis Screen Date sepsis recognized/suspect: Feb 14, 2025 Time Sepsis recognized/suspect: 1944 Recent Procedure: No On Antibiotic Therapy: No Respiratory Rate >20: No Heart Rate >90: No Temp<36 C (96.8 F) or >38.3 C: No SBP <90 or MAP <65 mmHG: No New Acute Mental Status Change: No Is the patient on CPAP, BIPAP,: No Physician Orders Assess Pacemaker Function (02/14/25 20:25) Chest Xray 1 View (02/14/25 20:25) Titrate Oxygen (02/14/25 20:25) Oxygen (02/14/25 ) Continous Pulse Oximetry (02/14/25 20:25) Saline Lock (02/14/25 20:25) Woodenware Assembler (02/14/25 ) Notify Md If Abnormal Vs (02/14/25 20:25) Sodium Chloride 0.9% (02/14/25 20:30) Admit (02/14/25 22:47) Nitroglycerin Sublingual (Ntrostat Subli (02/14/25 23:00) Morphine Sulfate Injection (02/14/25 23:00) Oxygen By Nasal Cannula (02/14/25 22:47) Stat Ekg For Chest Pain (02/14/25 22:47) Notify Md Of Changes From Base (02/14/25 22:47) Receiving Associate Store For 24 Hours (02/14/25 22:47) Emergency Dysrhythmia Protocol (02/14/25 22:47) Rhythm Strips Once Every Shift (02/14/25 22:47) Urinalysis (02/14/25 22:57) Empagliflozin (Jardiance) (02/15/25 10:00) Furosemide Tablet (Lasix Tablet) (02/15/25 10:00) (Nf) Allopurinol (02/16/25 10:00) (Nf) Aspirin (02/15/25 10:00) Atorvastatin (Lipitor) (02/15/25 22:00) Spironolactone (Aldactone) (02/15/25 10:00) Vital Signs Date Time Temp Pulse Resp B/P (MAP) Pulse Ox O2 Delivery O2 Flow Rate FiO2 02/14/25 22:00 61 16 145/47 (79) 98 02/14/25 21:46 62 13 98 Room Air* 0 21 02/14/25 21:45 97.9 62 13 143/62 (89) 98 97.9 02/14/25 19:56 97.9 100 18 99/48 (65) 100 97.9 02/14/25 19:56 33 Laboratory Tests Test 02/14/25 20:57 White Blood Count 6.4 10^3/uL (4.4-10.8) Medications Medications Dose Ordered Sig/Jessica Route Start Time Stop Time Status Last Admin Dose Admin Sodium Chloride 1,000 ml @ 130 mls/hr Q7H42M ONCE IV 02/14/25 20:30 02/15/25 04:11 02/14/25 20:48 130 MLS/HR Assessment/Plan Assessment/Plan Assessment and plan: # Symptomatic bradycardia # History of CAD, S/P CABG and PTCAX11 # Chronic decompensated systolic heart failure, EF 10% - Heart rate improved to 60s after 1 L of fluid - x-ray showed cardiomegaly with pulmonary vascular congestion - clinically patient has no sign of volume overload - echo on 09/30 showed lvef 10%, severe dilated LV RV dysfunction with pacing lead mild to moderate MR moderate aortic regurgitation - continue Lasix 40 mg p.o. b.i.d., spironolactone 12.5 daily, aspirin 81 mg daily, atorvastatin 40 mg at hs, Jardiance 10 mg daily # FAITH on CKD likely hemodynamically mediated/VMN # Stage III CKD - IV normal saline 1 L given - strict I&O - avoid nephrotoxic medication - monitor BMP # Type 2 diabetes mellitus, hemoglobin A1c 7.7 - mild sliding scale of insulin # GERD # History of stomach cancer , s/p partial oesophago-gastrectomy with anastomosis - Protonix p.o. 40 mg daily # DVT prophylaxis - Lovenox 40 mg sc daily Goal of care discussed with the patient for more than 18 minutes full code Plan discussed with Dr. Clemons Plan discussed with: Patient, Other My Orders Orders - ARRON GEORGES RESIDENT Procedure Category Date Status Time Admit ADMIT 02/14/25 Transmitted 22:47 Nitroglycerin PHA 02/14/25 In Process Sublingual (Ntrostat 23:00 Morphine Sulfate PHA 02/14/25 Pending Injection 23:00 Oxygen By Nasal RT 02/14/25 Transmitted Cannula 22:47 Stat Ekg For Chest RORY 02/14/25 In Process Pain 22:47 Notify Of Changes RORY 02/14/25 In Process From Base 22:47 Receiving Associate Store For RORY 02/14/25 In Process 24 Hours 22:47 Emergency Dysrhythmia [facility] 02/14/25 In Process Protocol 22:47 Rhythm Strips Once [facility] 02/14/25 In Process Every Shift 22:47 Urinalysis LAB 02/14/25 Logged 22:[address] [facility] 02/15/25 Logged (Jardiance) 10:00 Furosemide Tablet PHA 02/15/25 Logged (Lasix Tablet) 10:00 (Nf) Allopurinol PHA 02/16/25 Logged 10:00 (Nf) Aspirin [facility] 02/15/25 Logged 10:00 Atorvastatin (Lipitor) PHA 02/15/25 Logged 22:[address] [facility] 02/15/25 Logged (Aldactone) 10:00 Date of Service: Feb 15, 2025 Billing Provider: LAURIE CLEMONS MD Common Visit Codes: [id number] INP/OBS CARE (HIGH) ARRON GEORGES RESIDENT Feb 14, 2025 23:02
[2025-02-15] MEDS ORDERED: DEXTROSE (50%) 50ML SYRG IV PRN (01:15)
[2025-02-15 02:12] LABS: Urine Protein, UAD TRACE (Negative)
[2025-02-15] MEDS: PANTOPRAZOLE 40 MG TAB PO SCH (05:43)
[2025-02-15] MEDS: ACCU-CHEK COMFORT CURVE STRIP VI SCH (06:35)
[2025-02-15] MEDS: InsuLIN REG 1unit/0.01ml Soln (100units/ml) SC SCH (06:36)
[2025-02-15] MEDS: MAALOX PLUS or MAALOX 30 ML PO PRN (08:02)
[2025-02-15 08:28] LABS: Hematocrit 42.1 % (41.0-53.0); Hemoglobin 14.1 g/dL (13.5-17.5); Mean Corpuscular Hemoglobin 31.2 pg (28.0-32.0); Mean Corpuscular Volume 93.1 fL (80.0-100.0); Nucleated Red Blood Cells % 0.1 %
[2025-02-15 08:41] LABS: INR 1.06 (0.9-1.15); Partial Thromboplastin Time 29.3 SEC (24.5-34.5); Prothrombin Time 11.2 sec (9.3-11.8)
[2025-02-15 08:46] LABS: Albumin 4.1 g/dL (3.2-4.8); Alkaline Phosphatase 77 U/L (46-116); Anion Gap 10 (5-15); BUN/Creatinine Ratio 15.3 (10.0-20.0); Blood Urea Nitrogen 22 mg/dL (9-23); Calcium 10.2 mg/dL (8.7-10.4); Carbon Dioxide 25 mmol/L (20-31); Magnesium 2.6 mg/dL (1.6-2.6); Potassium 4.1 mmol/L (3.5-5.1); Sodium 142 mmol/L (136-145); Total Protein 6.8 g/dL (5.7-8.2)
[2025-02-15 08:47] LABS: Bilirubin, Total 0.6 mg/dL (0.2-1.0)
[2025-02-15 08:48] LABS: Alanine Aminotransferase < 9 U/L (7-40); Chloride 107 mmol/L (98-107); Glucose 135 mg/dL (74-106)
[2025-02-15] MEDS: EMPAGLIFLOZIN 10 MG TAB PO SCH (11:06)
[2025-02-15] MEDS: SPIRONOLACTONE 25 MG TAB PO SCH (11:06)
[2025-02-15] MEDS: ENOXAPARIN SOD 40 MG/0.4 ML SYRINGE SC SCH (11:06)
[2025-02-15] MEDS: ASPirin-EC 81 mg tab PO SCH (11:07)
[2025-02-15] MEDS: FUROSEMIDE 40 MG TAB PO SCH (11:09)
--- NOTE | 2025-02-15 12:52 | DVHINCON2 ---
Date Seen: Feb 15, 2025 Referring Physician Naresh Reason for Consultation Bradycardia History of Present Illness 75-year-old male with PMH for ischemic cardiomyopathy, CAD s/p 3 V CABG 1979 says, previous stents total 11, AICD single lead implant approximately 1-1/2 years prior, CKD, paroxysmal atrial fibrillation on Xarelto presents to the hospital with dizziness, lightheadedness, and low heart rate. Patient states he had noted that his heart rate on his blood pressure machine has been reading low in the 30s at times. Patient states on day of presentation he was leaning forward to pick something up and became significantly lightheaded and fell forward. Denies loss of consciousness. Upon presentation in the ER patient had marginal blood pressure 99/48, heart rate 33 beats per minute. Troponin negative. BNP 726. CXR showing pulmonary congestion. Past Medical History As stated above Past Surgical History As stated above Family History: Diabetes mellitus G8 MOTHER G8 FATHER FH: cancer G8 MOTHER FH: heart failure G8 FATHER Allergies: Coded Allergies: Morphine (Verified Allergy, Unknown, 03/08/22) Home Meds Active Scripts Rivaroxaban (XARELTO) 10 Mg Tab, 1 TAB PO DAILY, #14 TAB Prov:KATY RAMIREZ MD 09/23/24 Hydrocodone-Acetaminophen (Hydrocodone Bitartrate/AC 5-325 mg) 1 Tab Tab, 1 TAB PO QID PRN, #30 TAB Prov:KATY RAMIREZ MD 09/23/24 Albuterol Sulfate (Proair Digihaler) 108 Mcg/Act Aer, 1-2 PUFF IN Q6HP PRN, #1 AER Prov:AYO HIDALGO MD 12/19/23 Empagliflozin (Jardiance) 10 Mg Tab, 10 MG PO DAILY for 30 Days, #30 TAB 2 Refills Prov:MIHIR ANN RESIDENT 11/16/23 Reported Medications Glimepiride (Glimepiride) 1 Mg Tab, 1 MG PO for 30 Days, MG 11/30/23 Nitroglycerin (NTROSTAT SUBLINGUAL) 0.4 Mg Sl, 0.4 MG SL PRN, TAB *MAY REPEAT EVERY 5 MINUTES X 3 TOTAL IF NO RELIEF, INITIATE ANALGESIC THERAPY. NOTIFY PHYSICIAN *Do not crush. 08/21/23 Omeprazole (Gnp Omeprazole) 20 Mg Tab, 1 TAB PO DAILY, #90 TAB 1 Refill 08/21/23 Furosemide (Furosemide) 40 Mg Tab, 1 TAB PO DAILY 08/21/23 Allopurinol (Allopurinol) 300 Mg Tab, 300 MG PO MWF, TAB 08/20/23 Aspirin (Aspirin) 81 Mg Chw, 81 MG PO DAILY, TAB.CHEW 08/20/23 Lovastatin (Lovastatin) 40 Mg Tab, 1 TAB PO 08/20/23 Metoprolol Succinate (Metoprolol Succinate Er) 25 Mg Tab, 1 TAB PO DAILY 08/20/23 Current Medications Current Medications Medications (Trade) Dose Ordered Sig/Jessica Route PRN Reason Start Time Stop Time Status Last Admin Nitroglycerin (Ntrostat Sublingual) 0.4 mg Q5MINP PRN SL FOR CHEST PAIN 02/14/25 23:00 Morphine Sulfate 2 mg Q30M PRN IV FOR CHEST PAIN 02/14/25 23:00 Empaglifozin (Jardiance) 10 mg DAILY PO 02/15/25 10:00 02/15/25 11:06 Furosemide (Lasix Tablet) 40 mg DAILY PO 02/15/25 10:00 02/15/25 11:09 Allopurinol (Zyloprim Tablet) 300 mg MWF PO 02/16/25 10:00 Aspirin (Ecotrin Enteric Coated Tablet) 81 mg DAILY PO 02/15/25 10:00 02/15/25 11:07 Atorvastatin Calcium (Lipitor) 40 mg HS PO 02/15/25 22:00 Spironolactone (Aldactone) 12.5 mg DAILY PO 02/15/25 10:00 02/15/25 11:06 Diagnostic Test (Pha) (Accu-Chek Comfort Curve T) 1 strip ACHS 02/15/25 07:00 02/15/25 11:37 Insulin Human Regular (InsuLIN R) ACHS SC 02/15/25 07:00 02/15/25 06:36 Dextrose 50 ml UD PRN IV Blood Sugar LESS THAN 60 02/15/25 01:15 Pantoprazole Sodium (Protonix Tablet) 40 mg DAILY@0600 PO 02/15/25 06:00 02/15/25 05:43 Enoxaparin Sodium (Lovenox) 40 mg DAILY SC 02/15/25 10:00 02/15/25 11:06 Al Hydrox/Mg Hydrox/Simethicone (Maalox Plus) 15 ml Q8HP PRN PO FOR STOMACH DISTRESS 02/15/25 06:45 02/15/25 08:02 Review of Systems Constitutional: No: Fever, Chills, Sweats, Weakness, Malaise, Other Eyes: No: Pain, Vision change, Conjunctivae inflammation, Eyelid inflammation, Other, Redness ENT: No: Ear pain, Ear discharge, Nose pain, Nose discharge, Nose congestion, Mouth pain, Mouth swelling, Throat pain, Throat swelling, Other Respiratory: No: Cough, Dry, Shortness of breath, SOB with exertion, Wheezing, Hemoptysis, Pleuritic Pain, Sputum, Wheezing, Other Cardiovascular: ; No: Chest Pain Palpitations, Orthopnea, Paroxysmal Noc. Dyspnea, Edema, Lt Headedness, Other Gastrointestinal: No: Nausea, Vomiting, Abdominal Pain, Diarrhea, Constipation, Melena, Hematochezia, Other Genitourinary: No Dysuria, No Frequency, No Incontinence, No Hematuria, No Retention, No Other Musculoskeletal: neck pain; No: other, shoulder pain, arm pain, back pain, hand pain, leg pain, foot pain Skin: No: Rash, Lesions, Jaundice, Bruising, Other Neurological: Other (Dizziness, headache.); No: Weakness, Numbness, Incoordination, Change in speech, Confusion, Seizures Vital Signs Vital Signs Date Time Temp Pulse Resp B/P (MAP) Pulse Ox O2 Delivery O2 Flow Rate FiO2 02/15/25 12:00 98.2 60 11 127/59 (81) 100 98.2 02/15/25 08:25 Room Air* 0 21 Physical Exam General appearance: Patient is well-developed, well-nourished, in no acute distress. HEENT: Exam shows: Normocephalic, atraumatic, PERRLA, EOMI Neck: Supple, no bruits Chest: Equal chest excursion bilaterally. Breath sounds normal-no rales or wheezes. Heart: Rhythm: Regular rate; no murmur or gallop Abdomen: Exam shows: Soft, nontender, nondistended Musculoskeletal: No clubbing, no cyanosis, no lower extremity edema Dermatology: Skin warm, moist. Neurological: Exam shows: Alert and oriented x4, normal speech Available prior records, labs, EKG, rhythm strips reviewed and interpreted Labs/Diagnostic Data Labs Test 02/15/25 07:51 02/15/25 07:50 02/15/25 06:27 02/15/25 00:13 Range/Units Prothrombin Time 11.2 9.3-11.8 sec Prothrombin Time INR 1.06 0.9-1.15 Activated Partial Thromboplast Time 29.3 24.5-34.5 SEC Sodium Level 142 136-145 mmol/L Potassium Level 4.1 3.5-5.1 mmol/L Chloride Level 107 98-107 mmol/L Carbon Dioxide Level 25 20-31 mmol/L Anion Gap 10 5-15 Blood Urea Nitrogen 22 9-23 mg/dL Creatinine 1.44 H 0.700-1.30 mg/dL Glomerular Filtration Rate Calc 51 >90 mL/min BUN/Creatinine Ratio 15.3 10.0-20.0 Serum Glucose 135 H 74-106 mg/dL Calcium Level 10.2 8.7-10.4 mg/dL Magnesium Level 2.6 1.6-2.6 mg/dL Total Bilirubin 0.6 0.2-1.0 mg/dL Aspartate Amino Transferase (AST) 17 13-40 U/L Alanine Aminotransferase (ALT) < 9 7-40 U/L Alkaline Phosphatase 77 46-116 U/L Total Protein 6.8 5.7-8.2 g/dL Albumin 4.1 3.2-4.8 g/dL White Blood Count 5.6 4.4-10.8 10^3/uL Red Blood Count 4.52 4.5-5.90 10^6/uL Hemoglobin 14.1 13.5-17.5 g/dL Hematocrit 42.1 41.0-53.0 % Mean Corpuscular Volume 93.1 80.0-100.0 fL Mean Corpuscular Hemoglobin 31.2 28.0-32.0 pg Mean Corpuscular Hemoglobin Concent 33.5 32.0-36.0 g/dL Red Cell Distribution Width 14.0 11.8-14.3 % Platelet Count 167 140-450 10^3/uL Mean Platelet Volume 10.3 6.9-10.8 fL Neutrophils (%) (Auto) 59.9 37.0-80.0 % Lymphocytes (%) (Auto) 28.9 10.0-50.0 % Monocytes (%) (Auto) 9.3 0.0-12.0 % Eosinophils (%) (Auto) 1.3 0.0-7.0 % Basophils (%) (Auto) 0.6 0.0-2.0 % Neutrophils # (Auto) 3.4 1.6-8.6 10 ^3/uL Lymphocytes # (Auto) 1.6 0.4-5.4 10 ^3/uL Monocytes # (Auto) 0.5 0-1.3 10 ^3/uL Eosinophils # (Auto) 0.1 0-0.8 10 ^3/uL Basophils # (Auto) 0 0-0.2 10 ^3/uL Nucleated Red Blood Cells 0.1 % POC Glucose 143 H 70-106 mg/dl Urine Color Light-yellow Yellow Urine Clarity Clear Clear Urine pH 7.5 5.0-9.0 Urine Specific [place] 1.022 1.001-1.035 Urine Protein Trace H Negative Urine Ketones Negative Negative Urine Blood Negative Negative /uL Urine Nitrite Negative Negative Urine Bilirubin Negative Negative Urine Urobilinogen Normal Negative mg/dL Urine Leukocyte Esterase Negative Negative /uL Urine RBC <1 0 - 3 /hpf Urine Microscopic WBC 0-3 /HPF Urine Squamous Epithelial Cells None seen <5 /hpf Urine Bacteria None seen None Seen /hpf Urine Glucose 4+ H Normal mg/dL Test 02/14/25 20:57 Range/Units Hemoglobin A1c 7.7 H <5.7 % A1C Troponin I High Sensitivity 31 </=54 ng/L B-Type Natriuretic Peptide 726.96 0-100 pg/mL Thyroid Stimulating Hormone (TSH) 4.50 0.55-4.78 uIU/mL Assessment Symptomatic bradycardia - device interrogation. Avoid AV leonides blockers. Continue tele monitoring. TSH normal. Acute on chronic HFrEF - breathing stable on room air, CXR with pulmonary congestion. Patient given general IV fluid hydration given marginal BP. Continued on home dose Lasix 40 mg p.o. daily. Continue monitor fluid volume status. Ischemic cardiomyopathy - unable to tolerate GDMT, as patient endorses recently discontinued metoprolol due to low heart rate and low BP. Patient on spironolactone, Jardiance, was not on Sky/Arb in the prior due to monitor BP, may initiate if BP tolerates off metoprolol. Presence of single lead AICD - [employer] single lead ICD. Interrogation pending. Paroxysmal atrial fibrillation - sinus rhythm/bradycardia on tele. Avoid AV leonides blockers due to bradycardia. Resume Xarelto upon discharge. Case Discussed with Dr Kaur. Device interrogation with [employer] single lead ICD pending. Follow up echo. Continue diuresis with p.o. Lasix. Continue medical management for now. Critical care, time spent: 40 This medical document was created using an electronic medical record system with voice recognition software and computerized dictation system. Although this document has been carefully reviewed, there might still be some phonetic and typographical errors. Occasional wrong-word or ``sound-alike substitutions may have occurred due to the inherent limitations of voice recognition software. These areas are purely typographical due to imperfections of the software programs and do not reflect any compromise in the patient's medical care. Please read the chart carefully and recognize, using context, where these substitutions have occurred. Thank you for allowing me to participate in the management of this patient. The treatment plan was discussed with and agreed upon by patient/family including requesting consultants and ordering of imaging/procedures. Plan discussed with: Patient NYHA Physical activity limitations: Class1(None)absent sob, Date of Service: Feb 15, 2025 Billing Provider: ROXANA NIEVES Cardiology Common Codes: [id number] INP/OBS CARE (High), [id number] CARE 30-74 MIN ROXANA NIEVES Feb 15, 2025 12:52
--- NOTE | 2025-02-15 14:43 | DVHPNRES ---
Progress Note Date Seen: Feb 15, 2025 Resident Creating Document: DUSTIN WANG RESIDENT Medical Necessity Reason Pt with a Central, PICC or Fol: No Subjective Review of Systems 75-year-old male with past medical history of hypertension, CAD, status post CABG, status post PTCAX 11, DM type 2, gastric cancer and post status gastric surgery, status post AICD, CKD presents to the emergency department with a chief complaint of dizziness since yesterday morning before admission. He states he then went to greens picker something from the floor and felt dizzy after he bent over and got up. Patient states that he normally checks his vitals 2 times a day. He noted that he was hypotensive and his heart rate was in the 30s. He took it several times and When the heart rate did not go for over 36 which prompted him to visit the hospital. on inquiry he reports that he stopped his beta-lavon medication 2 months ago as per his service clerk. He denies fever, chest pain, shortness of breath, palpitation, diaphoresis, blurred vision, abdominal pain, nausea, vomiting or any other change in bowel and bladder habit. PCP: Lonny Petit Dietetics Professor: MD Izabella Gallardo MD PMH: Hypertension, CAD, produce mellitus type 2, gastric cancer, CKD PSH: Status post CABG, PTCA X 11, status post CAD Family history: CHF, ischemic heart disease runs in the family Social history: Lives with family, stopped smoking 40 years ago, nonalcoholic and never tried any drugs ROS: patient was seen and examined by me in the bedside overnight events were reviewed. Patient reports feeling much better today. Rest of the ROS is negative Objective vital signs Vital Sign Date Time Temp Pulse Resp B/P (MAP) Pulse Ox O2 Delivery O2 Flow Rate FiO2 02/15/25 14:00 62 10 128/63 (84) 99 02/15/25 12:00 98.2 98.2 02/15/25 08:25 Room Air* 0 21 Total Intake and Output 02/14/25 02/14/25 02/15/25 15:00 23:00 07:00 Intake Total 260 ml 780 ml Balance 260 ml 780 ml medications Current Medications Medications Dose Ordered Sig/Jessica Route Start Time Stop Time Status Last Admin Dose Admin Nitroglycerin 0.4 mg Q5MINP PRN SL 02/14/25 23:00 Morphine Sulfate 2 mg Q30M PRN IV 02/14/25 23:00 Empaglifozin 10 mg DAILY PO 02/15/25 10:00 02/15/25 11:06 10 MG Furosemide 40 mg DAILY PO 02/15/25 10:00 02/15/25 11:09 40 MG Allopurinol 300 mg MWF PO 02/16/25 10:00 Aspirin 81 mg DAILY PO 02/15/25 10:00 02/15/25 11:07 81 MG Atorvastatin Calcium 40 mg HS PO 02/15/25 22:00 Spironolactone 12.5 mg DAILY PO 02/15/25 10:00 02/15/25 11:06 12.5 MG Diagnostic Test (Pha) 1 strip ACHS 02/15/25 07:00 02/15/25 11:37 1 STRIP Insulin Human Regular ACHS SC 02/15/25 07:00 02/15/25 06:36 2 UNITS Dextrose 50 ml UD PRN IV 02/15/25 01:15 Pantoprazole Sodium 40 mg DAILY@0600 PO 02/15/25 06:00 02/15/25 05:43 40 MG Enoxaparin Sodium 40 mg DAILY SC 02/15/25 10:00 02/15/25 11:06 40 MG Al Hydrox/Mg Hydrox/Simethicone 15 ml Q8HP PRN PO 02/15/25 06:45 02/15/25 08:02 15 ML Examination Pt is lying on bed General Appearance: Alert, Oriented X3, Cooperative, Not in acute distress HEENT: Atraumatic, Mucous membranes moist/pink Respiratory: Clear to auscultation, Normal air movement, No added sounds Cardiovascular: Regular rate, Normal S1, Normal S2, No murmurs Abdominal: Active bowel sounds, Soft, no distention, no tenderness Extremities: No edema, Normal pulses, No tenderness/swelling Skin: No Significant rash, except past surgical scars Neuro: Normal speech, sensorimotor deficits none Psych/Mental Status: Mental status NL, Mood NL Nurse was there as hydraulic plumber during examination laboratory and microbiology Laboratory Tests 02/15/25 07:51 02/15/25 07:50 Test 02/15/25 07:51 Range/Units Serum Glucose 135 H 74-106 mg/dL Labs and/or images reviewed: Labs reviewed by me, Image(s) reviewed by me Problem List/Assessment/Plan Problem List/Assessment/Plan #Symptomatic bradycardia #Acute on Chronic decompensated systolic heart failure, ejection fraction 10% #Ischemic cardiomypathy #History of A. Fib, now sinus rhythm -History of CAD, status post CABG and PTCA X 11 -Heart rate improved to 60 L after 1 L of fluid -x-ray shows cardiomegaly with pulmonary vascular congestion -Clinically patient has no signs of volume overload -echo on 09/30 shows LVEF 10%, severe dilated LV dysfunction with pacing lead [id number] MR Moderate aortic regurgitation. -Continue Lasix 40 mg p.o. b.i.d., spironolactone 12.5 mg daily, aspirin 81 mg daily, atorvastatin 40 mg at HS, Jardiance 10 mg daily -Cardio consultation suggested Device interrogation with [employer] single lead ICD pending. Follow up echo. # FAITH on CKD likely hemodynamically mediated / VMN -stage III CKD -IV normal saline 1 L given -Strict I and O -Avoid nephrotoxic medication -Monitor BMP # Type 2 diabetes mellitus, Hb1AC 7.7 -Mild sliding scale of insulin #GERD -History of stomach cancer, status post partial esophagogastrostomy with anastomosis -Protonix 40 mg daily GI prophylaxis: Protonix DVT prophylaxis: Lovenox, aspirin Diet: low-salt diet Goals of care discussed with the patient for more than 27 minutes: Full code status Case discussed with Dr. Tenorio, patient and nurse. Plan discussed with: Patient, Other (RN) Date of Service: Feb 15, 2025 Billing Provider: TERESA TENORIO MD Common Visit Codes: [id number] INP/OBS CARE(HIGH) DUSTIN WANG RESIDENT Feb 15, 2025 14:43 TERESA TENORIO MD Feb 15, 2025 23:41
[2025-02-15 19:44] VITALS: PULSE 66; RESP 17; O2SAT 97
[2025-02-15] MEDS: ATORVASTATIN 20 MG TAB PO SCH (21:41)
[2025-02-15 23:10] VITALS: BP 130/77; PULSE 61; RESP 18; TEMP 97.6; O2SAT 99
[2025-02-15] MEDS ORDERED: SPIR25TA8 PO (23:17)
[2025-02-15] MEDS ORDERED: GLIM-38 PO (23:17)
[2025-02-15] MEDS ORDERED: FAMO20TA10 PO (23:17)
[2025-02-15] MEDS ORDERED: ZOFR4T PO (23:17)
[2025-02-15 23:20] VITALS: BP 130/77; PULSE 61; RESP 18; TEMP 97.6; O2SAT 99
[2025-02-16 01:00] VITALS: BP 128/70; PULSE 59; RESP 18; TEMP 98.1; O2SAT 100
[2025-02-16 05:00] VITALS: BP 147/86; PULSE 67; RESP 18; TEMP 98; O2SAT 100
[2025-02-16 05:36] LABS: Potassium 4.0 mmol/L (3.5-5.1); Sodium 143 mmol/L (136-145)
[2025-02-16 05:37] LABS: Anion Gap 10 (5-15); Calcium 9.8 mg/dL (8.7-10.4); Carbon Dioxide 25 mmol/L (20-31); Hematocrit 44.3 % (41.0-53.0); Hemoglobin 15.1 g/dL (13.5-17.5); Mean Corpuscular Hemoglobin 31.4 pg (28.0-32.0); Mean Corpuscular Volume 92.0 fL (80.0-100.0); Nucleated Red Blood Cells % 0.1 %
[2025-02-16 05:41] LABS: Chloride 108 mmol/L (98-107)
[2025-02-16 05:42] LABS: BUN/Creatinine Ratio 17.2 (10.0-20.0); Blood Urea Nitrogen 21 mg/dL (9-23); Glucose 97 mg/dL (74-106)
[2025-02-16 08:00] VITALS: PULSE 59
[2025-02-16 09:00] VITALS: BP 142/45; PULSE 65; RESP 14; TEMP 97.7; O2SAT 97
[2025-02-16] MEDS: ALLOPURINOL 100 MG TAB PO SCH (09:27)
[2025-02-16 13:00] VITALS: BP 123/68; PULSE 58; RESP 15; TEMP 97.5; O2SAT 99
--- NOTE | 2025-02-16 13:30 | DVHPN2 ---
Consult Progress Note Subjective Other Systems: Patient denies any cardiac symptoms at time of assessment Objective vital signs Vital Sign Date Time Temp Pulse Resp B/P (MAP) Pulse Ox O2 Delivery O2 Flow Rate FiO2 02/16/25 09:24 142/45 02/16/25 09:00 97.7 65 14 97 97.7 02/16/25 08:15 Room Air* 0 21 Total Intake and Output 02/15/25 02/15/25 02/16/25 15:00 23:00 07:00 Intake Total 0 ml Balance 0 ml medications Current Medications Medications Dose Ordered Sig/Jessica Route Start Time Stop Time Status Last Admin Dose Admin Nitroglycerin 0.4 mg Q5MINP PRN SL 02/14/25 23:00 Morphine Sulfate 2 mg Q30M PRN IV 02/14/25 23:00 Empaglifozin 10 mg DAILY PO 02/15/25 10:00 02/16/25 09:25 10 MG Furosemide 40 mg DAILY PO 02/15/25 10:00 02/16/25 09:24 40 MG Allopurinol 300 mg MWF PO 02/16/25 10:00 Aspirin 81 mg DAILY PO 02/15/25 10:00 02/16/25 09:24 81 MG Atorvastatin Calcium 40 mg HS PO 02/15/25 22:00 02/15/25 21:41 40 MG Spironolactone 12.5 mg DAILY PO 02/15/25 10:00 02/16/25 09:26 12.5 MG Diagnostic Test (Pha) 1 strip ACHS 02/15/25 07:00 02/16/25 11:30 1 STRIP Insulin Human Regular ACHS SC 02/15/25 07:00 02/15/25 21:42 3 UNITS Dextrose 50 ml UD PRN IV 02/15/25 01:15 Pantoprazole Sodium 40 mg DAILY@0600 PO 02/15/25 06:00 02/16/25 05:32 40 MG Enoxaparin Sodium 40 mg DAILY SC 02/15/25 10:00 02/16/25 09:26 40 MG Al Hydrox/Mg Hydrox/Simethicone 15 ml Q8HP PRN PO 02/15/25 06:45 02/15/25 08:02 15 ML Examination: GENERAL:Normal, LUNGS:Normal, CVS:Normal, NEURO:Normal laboratory and microbiology Laboratory Tests 02/16/25 04:18 Test 02/16/25 04:18 Range/Units Serum Glucose 97 74-106 mg/dL Problem List/Assessment/Plan Problem List/Assessment/Plan Sinus bradycardia with PVCs Acute on chronic HFrEF, NYHA class III Coronary artery disease status post triple-vessel CABG and multiple PTCAs x 11 AUDI Ischemic cardiomyopathy Paroxysmal atrial fibrillation (on Xarelto) Presence of AICD ([facility]) Gastric cancer status post resection Type 2 diabetes mellitus Continue with the following plan/recommendations (Dr. Vanegas): Transthoracic echocardiogram from 09/20/2024 reveals an EF of 10% with severe dilated left ventricle. Continue guideline directed medical therapy for CHF as tolerated by blood pressure and renal function. AICD interrogation reviewed by military equipment specialist , no significant events noted. At the time of assessment, the patient is back in a normal sinus rhythm. monitoring and evaluation advisor reviewed, episodes of sinus bradycardia with frequent PVCs noted. No significant atrioventricular blocks or pauses seen. The patient has an appointment with his military equipment specialist at [place] tomorrow 02/17/2025. We will recommend for the patient to follow up with his primary military equipment specialist in the outpatient setting. Thank you for allowing us to care for this patient. Please call with any questions or concerns. This medical document was created using an electronic medical record system with voice recognition software and computerized dictation system. Although this document has been carefully reviewed, there might still be some phonetic and typographical errors. Occasional wrong-word or ``sound-alike substitutions may have occurred due to the inherent limitations of voice recognition software. These areas are purely typographical due to imperfections of the software programs and do not reflect any compromise in the patient's medical care. Please read the chart carefully and recognize, using context, where these substitutions have occurred. Plan discussed with: Patient Date of Service: Feb 16, 2025 Billing Provider: RITU PARNELL Common Visit Codes: [id number] INP/OBS CARE(HIGH) RITU PARNELL Feb 16, 2025 13:30
--- NOTE | 2025-02-16 15:25 | DVHDSRES ---
Discharge Summary Date of Admission Resident Creating Document: DUSTIN WANG RESIDENT Feb 14, 2025 at 22:47 Date of Discharge: Feb 16, 2025 Admitting Diagnosis #Symptomatic bradycardia, #acute on chronic decompensated systolic heart failure with ejection fraction of 10% Labs/Diagnostic Data: Laboratory Results Test 02/16/25 11:50 02/16/25 04:18 02/15/25 07:51 02/15/25 00:13 POC Glucose 141 mg/dl (70-106) White Blood Count 5.3 10^3/uL (4.4-10.8) Red Blood Count 4.81 10^6/uL (4.5-5.90) Hemoglobin 15.1 g/dL (13.5-17.5) Hematocrit 44.3 % (41.0-53.0) Mean Corpuscular Volume 92.0 fL (80.0-100.0) Mean Corpuscular Hemoglobin 31.4 pg (28.0-32.0) Mean Corpuscular Hemoglobin Concent 34.1 g/dL (32.0-36.0) Red Cell Distribution Width 13.9 % (11.8-14.3) Platelet Count 169 10^3/uL (140-450) Mean Platelet Volume 10.6 fL (6.9-10.8) Neutrophils (%) (Auto) 52.9 % (37.0-80.0) Lymphocytes (%) (Auto) 35.4 % (10.0-50.0) Monocytes (%) (Auto) 9.6 % (0.0-12.0) Eosinophils (%) (Auto) 1.8 % (0.0-7.0) Basophils (%) (Auto) 0.3 % (0.0-2.0) Neutrophils # (Auto) 2.8 10 ^3/uL (1.6-8.6) Lymphocytes # (Auto) 1.9 10 ^3/uL (0.4-5.4) Monocytes # (Auto) 0.5 10 ^3/uL (0-1.3) Eosinophils # (Auto) 0.1 10 ^3/uL (0-0.8) Basophils # (Auto) 0 10 ^3/uL (0-0.2) Nucleated Red Blood Cells 0.1 % Sodium Level 143 mmol/L (136-145) Potassium Level 4.0 mmol/L (3.5-5.1) Chloride Level 108 mmol/L (98-107) Carbon Dioxide Level 25 mmol/L (20-31) Anion Gap 10 (5-15) Blood Urea Nitrogen 21 mg/dL (9-23) Creatinine 1.22 mg/dL (0.700-1.30) Glomerular Filtration Rate Calc 62 mL/min (>90) BUN/Creatinine Ratio 17.2 (10.0-20.0) Serum Glucose 97 mg/dL (74-106) Calcium Level 9.8 mg/dL (8.7-10.4) Prothrombin Time 11.2 sec (9.3-11.8) Prothrombin Time INR 1.06 (0.9-1.15) Activated Partial Thromboplast Time 29.3 SEC (24.5-34.5) Magnesium Level 2.6 mg/dL (1.6-2.6) Total Bilirubin 0.6 mg/dL (0.2-1.0) Aspartate Amino Transferase (AST) 17 U/L (13-40) Alanine Aminotransferase (ALT) < 9 U/L (7-40) Alkaline Phosphatase 77 U/L (46-116) Total Protein 6.8 g/dL (5.7-8.2) Albumin 4.1 g/dL (3.2-4.8) Urine Color Light-yellow (Yellow) Urine Clarity Clear (Clear) Urine pH 7.5 (5.0-9.0) Urine Specific [place] 1.022 (1.001-1.035) Urine Protein Trace (Negative) Urine Ketones Negative (Negative) Urine Blood Negative /uL (Negative) Urine Nitrite Negative (Negative) Urine Bilirubin Negative (Negative) Urine Urobilinogen Normal mg/dL (Negative) Urine Leukocyte Esterase Negative /uL (Negative) Urine RBC <1 /hpf (0 - 3) Urine Microscopic WBC /HPF (0-3) Urine Squamous Epithelial Cells None seen /hpf (<5) Urine Bacteria None seen /hpf (None Seen) Urine Glucose 4+ mg/dL (Normal) Test 02/14/25 20:57 Hemoglobin A1c 7.7 % A1C (<5.7) Troponin I High Sensitivity 31 ng/L (</=54) B-Type Natriuretic Peptide 726.96 pg/mL (0-100) Thyroid Stimulating Hormone (TSH) 4.50 uIU/mL (0.55-4.78) Other Laboratory Tests 02/16/25 04:18 Brief Hx & Hospital Course: 75-year-old male with past medical history of hypertension, CAD, status post CABG, status post PTCAX 11, DM type 2, gastric cancer and post status gastric surgery, status post AICD, CKD presents to the emergency department with a chief complaint of dizziness since yesterday morning before admission. He states he then went to moss picker something from the floor and felt dizzy after he bent over and got up. Patient states that he normally checks his vitals 2 times a day. He noted that he was hypotensive and his heart rate was in the 30s. He took it several times and When the heart rate did not go for over 36 which prompted him to visit the hospital. on inquiry he reports that he stopped his beta-laovn medication 2 months ago as per his regional director of admissions. He denies fever, chest pain, shortness of breath, palpitation, diaphoresis, blurred vision, abdominal pain, nausea, vomiting or any other change in bowel and bladder habit. PCP: Lonny Petit Mounter Smoking Pipe: MD Izabella Gallardo MD PMH: Hypertension, CAD, produce mellitus type 2, gastric cancer, CKD PSH: Status post CABG, PTCA X 11, status post CAD Family history: CHF, ischemic heart disease runs in the family Social history: Lives with family, stopped smoking 40 years ago, nonalcoholic and never tried any drugs Brief history of hospitalization: Patient had symptomatic bradycardia, acute on chronic decompensated systolic heart failure with ejection fraction of 10%, ischemic cardiomyopathy, history of AFib out sinus rhythm, History of CE, status post CABG and PTCAx11. patient's heart rate improved to 60 after 1 L of fluid. clinically patient had no signs of volume overload. patient was continued on Lasix 40 mg p.o. b.i.d., spironolactone 12.5 mg daily, aspirin 81 mg daily, atorvastatin 40 mg at night, Jardiance 10 mg daily. A cardiac consultation was done and it was suggested device interrogation with [employer] single lead ICD and interrogation came back normal. Patient also had FAITH on CKD likely hemodynamically mediated/VMN and stage III CKD. IV normal saline 1 L was given and input and output was strictly monitored. Patient was counseled on avoiding nephrotoxic drugs and BMP was monitored as well. For patient's type 2 diabetes mellitus with Hb1AC 7.7 mild sliding scale insulin was begun. For patient's GERD history of stomach cancer status post partial esophagogastric tracheostomy with anastomosis patient was continued on Protonix 40 mg daily. Patient is now stable for discharge. he has been counseled regarding continuation of home medication and to monitor his heart rate and blood pressure. Patient is being discharged on albuterol, allopurinol, aspirin, i empagliflozin, famotidine, furosemide, glucosamine cried, hydrocodone- acetaminophen, lovastatin, metoprolol succinate, nitroglycerin, omeprazole, ondansetron, rivaroxaban, spironolactone. Pt is lying on bed General Appearance: Alert, Oriented X3, Cooperative, Not in acute distress HEENT: Atraumatic, Mucous membranes moist/pink Respiratory: Clear to auscultation, Normal air movement, No added sounds Cardiovascular: Regular rate, Normal S1, Normal S2, No murmurs Abdominal: Active bowel sounds, Soft, no distention, no tenderness Extremities: No edema, Normal pulses, No tenderness/swelling Skin: No Significant rash, except past surgical scars Neuro: Normal speech, sensorimotor deficits none Psych/Mental Status: Mental status NL, Mood NL Nurse was there as corporate administrator during examination Operations or Procedures CHEST RADIOGRAPH IMPRESSION: Cardiomegaly with pulmonary vascular congestion. Condition at Discharge: Stable Final Diagnosis/Problems List #Symptomatic bradycardia #Acute on Chronic decompensated systolic heart failure, ejection fraction 10% #Ischemic cardiomypathy #History of A. Fib, now sinus rhythm # FAITH on CKD likely hemodynamically mediated / VMN # Type 2 diabetes mellitus, Hb1AC 7.7 #GERD Discharge Disposition: Home Discharge Instruct/Medications Diet: Consistent carbohydrate, Cardiac 2g Na,low cholest Activity: No Restrictions, As Tolerated Follow Up/Referral: followup with PCP in 1 week followup with cardiology outpatient Medications: resume home medicines Scheduled Allopurinol (Allopurinol), 300 MG PO MWF, (Reported) Aspirin (Aspirin), 81 MG PO DAILY, (Reported) Empagliflozin (Jardiance), 10 MG PO DAILY Furosemide (Furosemide), 1 TAB PO DAILY, (Reported) Glimepiride (Glimepiride), 0.5 TAB PO DAILY, (Reported) Metoprolol Succinate (Metoprolol Succinate Er), 1 TAB PO DAILY, (Reported) Nitroglycerin (Ntrostat Sublingual), 0.4 MG SL PRN, (Reported) Omeprazole (Gnp Omeprazole), 1 TAB PO DAILY, (Reported) Rivaroxaban (Xarelto), 1 TAB PO DAILY Spironolactone (Spironolactone), 0.5 TAB PO DAILY, (Reported) Scheduled PRN Albuterol Sulfate (Proair Digihaler), 1-2 PUFF IN Q6HP PRN Hydrocodone-Acetaminophen (Hydrocodone Bitartrate/AC 5-325 mg), 1 TAB PO QID PRN Miscellaneous Medications Famotidine (Pepcid Tablet), 1 TAB PO, (Reported) Glimepiride (Glimepiride), 1 MG PO, (Reported) Lovastatin (Lovastatin), 1 TAB PO, (Reported) Ondansetron Odt 4MG Tab (Zofran Po), 4 MG PO, (Reported) Discharge Statement: "Patient was advised to return to the ER or call 911 if any headaches, dizziness, shortness of breath, chest pain, abdominal pain, bleeding, fevers, or worsening of medical condition. Patient was counseled about treatment plan, medications, possible side effects, patientverbalized understanding. All questions were answered to the best of my ability. This discharge took greater then 30 minutes in planning, reviewing documentation, counseling the patient, and discussing with other team members." ASSESSMENT ASSESSMENT Assessment # FAITH on CKD likely hemodynamically mediated / VMN # Type 2 diabetes mellitus, Hb1AC 7.7 # D[place]IN [place] RESIDENT Feb 16, 2025 15:25
[2025-02-16 17:00] VITALS: BP 108/65; PULSE 68; RESP 14; TEMP 98.2; O2SAT 99
--- NOTE | 2025-02-16 23:14 | DVHPN2 ---
Consult Progress Note Date Seen: Feb 16, 2025 Subjective Other Systems: Patient was seen and evaluated in follow up. Patient has no new complaints at this time. Patient denies any cardiac symptoms. Patient is cardiac stable for discharge. Telemetry reviewed. Objective vital signs Vital Sign Date Time Temp Pulse Resp B/P (MAP) Pulse Ox O2 Delivery O2 Flow Rate FiO2 02/16/25 17:00 98.2 68 14 108/65 (79) 99 98.2 02/16/25 08:15 Room Air* 0 21 Total Intake and Output 02/15/25 02/15/25 02/16/25 15:00 23:00 07:00 Intake Total 0 ml Balance 0 ml Examination: GENERAL:Normal, HEENT:Normal, NECK:Normal, LUNGS:Normal, CVS:Normal, ABDOMEN:Normal, MSK:Normal, SKIN:Normal, NEURO:Normal laboratory and microbiology Laboratory Tests 02/16/25 04:18 Test 02/16/25 04:18 Range/Units Serum Glucose 97 74-106 mg/dL Problem List/Assessment/Plan Problem List/Assessment/Plan Sinus bradycardia with PVCs. Acute on chronic HFrEF, NYHA class III. Coronary artery disease status post triple-vessel CABG and multiple PTCAs x 11 AUDI. Ischemic cardiomyopathy. Paroxysmal atrial fibrillation (on Xarelto). Presence of AICD ([employer]). Gastric cancer status post resection. Type 2 diabetes mellitus. Continue with the following plan/recommendations (Dr. Coffman): Continued all current supportive medical care. Patient has been seen by Lucy Augustin NP on my behalf. We have discussed the plan with the patient. Transthoracic echocardiogram from 09/20/2024 reveals an EF of 10% with severe dilated left ventricle. Continue guideline directed medical therapy for CHF as tolerated by blood pressure and renal function. AICD interrogation reviewed by log manager , no significant events noted. At the time of assessment, the patient is back in a normal sinus rhythm. shelter monitor reviewed, episodes of sinus bradycardia with frequent PVCs noted. No significant atrioventricular blocks or pauses seen. The patient has an appointment with his log manager at [place] tomorrow 02/17/2025. We will recommend for the patient to follow up with his primary log manager in the outpatient setting. Additional plan as per the hospital course. Plan discussed with: Patient Date of Service: Feb 16, 2025 Billing Provider: DANNI COFFMAN MD Cardiology Common Codes: [id number] HOSP CARE(High DANNI COFFMAN MD Feb 16, 2025 23:14
--- NOTE | 2025-02-18 14:20 | ECG ---
[facility] Test Date: 2025-02-14 Test Time: 19:55:41 Pat Name: ZAKIA PINEDA Department: ER Room: 0293T B Gender: M Hand Tile Maker: STEPHEN : 1950 Requested By: CECY PIPER Order Number: [id number] Reading MD: Measurements Intervals [place] Rate: 86 P: 0 [place]: 0 QRS: 83 QRSD: 119 T: 244 QT: 459 QTc: 549 Interpretive Statements Accelerated junctional rhythm Ventricular bigeminy LVH with secondary repolarization abnormality Please click the below link to view image of tracing.
== END 2025-02-16 16:48 | disposition home or self-care (01) | DRG 291 ==
LOC: ER 19:43 → OVERFLOW 22:47 → TELE-WESTW 02-15 23:08
PROVIDERS: ADMIT Internal Medicine; ATTEND Internal Medicine
PROC: 4B02XTZ Measurement of Cardiac Defibrillator, External Approach (ICD-10-PCS; principal; 2025-02-16)
DX: I13.0 Hypertensive heart and chronic kidney disease with heart failure and stage 1 through stage 4 chronic kidney disease, or unspecified chronic kidney disease (principal); I50.23 Acute on chronic systolic (congestive) heart failure; N17.0 Acute kidney failure with tubular necrosis; K21.9 Gastro-esophageal reflux disease without esophagitis; I25.5 Ischemic cardiomyopathy; I48.0 Paroxysmal atrial fibrillation; I25.10 Atherosclerotic heart disease of native coronary artery without angina pectoris; N18.30 Chronic kidney disease, stage 3 unspecified; E11.22 Type 2 diabetes mellitus with diabetic chronic kidney disease; I49.3 Ventricular premature depolarization; Z79.899 Other long term (current) drug therapy; Z95.0 Presence of cardiac pacemaker; Z95.5 Presence of coronary angioplasty implant and graft; Z88.5 Allergy status to narcotic agent; Z79.01 Long term (current) use of anticoagulants; Z79.84 Long term (current) use of oral hypoglycemic drugs; Z79.82 Long term (current) use of aspirin; Z95.1 Presence of aortocoronary bypass graft; Z87.891 Personal history of nicotine dependence; Z85.9 Personal history of malignant neoplasm, unspecified; Z82.49 Family history of ischemic heart disease and other diseases of the circulatory system; Z83.3 Family history of diabetes mellitus
CPT/HCPCS: 36415; 71045; 80048; 80053; 81001; 82962; 83036; 83735; 83880; 84443; 84484; 85025; 85610; 85730; G0378; J1815